=== PATIENT | female | born 1940 | race Caucasian/White ===

== ENCOUNTER 2017-07-30 18:24 | Emergency (ER) | payer MEDICARE, OTHER, SELFPAY ==
[2017-07-30] VITALS (17 sets, daily range): BP systolic 141–213; BP diastolic 74–106; PULSE 72–83; RESP 14–21; TEMP 36.6; O2SAT 92–100
--- NOTE | 2017-07-30 | DI.CT.S_ITS ---
PROCEDURE: CT HEAD/BRAIN WO CON INDICATIONS: CODE STROKE TECHNIQUE: Noncontrast 4.5 mm thick angled axial sections acquired from the foramen magnum to the vertex, with coronal and sagittal reformats. For radiation dose reduction, the following was used: automated exposure control, adjustment of mA and/or kV according to patient size. COMPARISON: None. FINDINGS: Image quality: Excellent. CSF spaces: Basal cisterns are patent. No extra-axial fluid collections. The ventricles are symmetric in size and shape. Brain: Intraparenchymal hemorrhage within the region of the right basal ganglia and right temporal lobe. This measures approximately 1.7 x 3.3 cm. No definite midline shift. There is cerebral volume loss for age, with resultant ventricular and sulcal prominence. There are periventricular and deep white matter chronic small vessel ischemic changes. There is intracranial internal carotid artery atherosclerosis. Skull and face: Calvarium and visualized facial bones appear intact, without suspicious lesions. Hyperostosis frontalis is present. Sinuses: Visualized sinuses and mastoids are clear. IMPRESSION: Right basal ganglia and temporal lobe acute intraparenchymal hemorrhage as detailed above. Critical nature of the findings are immediately and personally telephoned and discussed with Dr. De Oliveira in the emergency department at 1846 hours 07/30/17 Dictated by: Moshe Dixon M.D. on 07/30/2017 at 18:43 Approved by: Moshe Dixon M.D. on 07/30/2017 at 18:48
[2017-07-30 18:49] LABS: Hematocrit 45.9 % (36-46); Hemoglobin 15.8 g/dL (12.0-16.0); Mean Corpuscular HGB Conc 34.4 % (30-36); Mean Corpuscular Hemoglobin 31.8 PG (26-34); Mean Corpuscular Volume 92.6 fL (80-100); Platelet Count 354 X10^3/uL (150-400); Prothrombin Time 10.6 SECONDS (10.1-12.7); Red Blood Cell Count 4.96 X10^6/uL (4.0-5.2); White Blood Cell Count 7.8 X10^3/uL (4.5-11.0)
[2017-07-30 18:52] LABS: PTT Partial Thromboplastin Tim 33 SECONDS (26.4-36.2)
[2017-07-30 18:53] LABS: BUN Creatinine Ratio 22.9 (6-22); Blood Urea Nitrogen 16 mg/dL (7-17); Calcium 9.7 mg/dL (8.4-10.2); Carbon Dioxide 31 mmol/L (22-32); Chloride 102 mmol/L (98-107); Estimated Glomerular Filt Rate > 60.0 mL/min (>60); Ethanol (ETOH) < 10 mg/dL; Glucose 86 mg/dL (80-110); HEMOLYSIS 21 (0-50); Potassium 3.7 mmol/L (3.4-5.1); Sodium 141 mmol/L (137-145)
--- NOTE | 2017-07-30 19:00 | ED_ITS ---
HPI - Neuro Symptoms/Deficit General Chief Complaint: Neuro Symptoms/Deficit Stated Complaint: stroke Time Seen by Provider: 07/30/17 18:39 Source: patient, family and EMS Mode of arrival: EMS Limitations: other (Dementia) History of Present Illness HPI Narrative: 77-year-old female brought in by EMS after they were called by the patient's daughter for concerns of a possible stroke. The patient's daughter who arrived to the emergency department after the patient stated that approximately 6 o'clock this afternoon which was about 45 min prior to [place] when the daughter started noticing that the patient was leaning. The daughter states that she thought that the patient had problems ?hitting the buttons ?on the machines they were playing. Patient's daughter states that the patient has a history of migraines. She states that at some point prior to the incident where she was leaning the patient was describing a headache. The daughter states that she told her mother that if she was getting headache than the need to leave. Daughter reports that her mother then reported that her headache was improving but then the leaning started. Here in the emergency department patient stated that she did have a headache last evening. Uncertain whether this was her normal headaches or a different headache. Patient was confused on the date. She did know her location. Confused on the circumstances while she was here. Upon further discussion with the daughter it was revealed that the patient does have a history of ?dementia ? patient also has a history of high blood pressure and insulin-dependent diabetes. Daughter states that she does not think that her mother has been taking her medications. Was also revealed that the patient has a history of ? multiple strokes ? Related Data Allergies Allergy/AdvReac Type Severity Reaction Status Date / Time No Known Drug Allergies Allergy Verified 07/30/17 19:14 Review of Systems Review of Systems All systems reviewed & are unremarkable except as noted in HPI and below Constitutional Denies chills, Denies fatigue, Denies fever(s), Reports headache(s), Denies lethargy and Reports weakness Eyes Denies blurry vision ENT Ears, Nose, Mouth, and Throat: Denies dizziness, Reports headache(s) and Denies neck pain Cardiovascular Denies chest pain, Denies syncope, Denies palpitations and Denies dyspnea Respiratory Denies cough and Denies dyspnea Gastrointestinal Gastrointestinal: Denies nausea and Denies vomiting Musculoskeletal Reports abnormal gait (Per daughter), Denies deformity and Denies neck pain Comments: Patient reports no musculoskeletal complaints Integumentary/Breasts Denies pruritus, Denies erythema, Denies rash and Denies wounds Neurologic Reports abnormal speech (Speech slurring her words per daughter), Reports abnormal gait (Per daughter), Reports confusion, Denies dizziness, Denies syncope, Reports headache(s), Denies tremor(s) and Reports weakness Psychiatric Reports confusion Endocrine Denies fatigue and Denies palpitations Hematologic/Lymphatic Denies easy bleeding and Denies easy bruising Exam Initial Vital Signs Initial Vital Signs: Vital Signs Temperature 97.8 F 07/30/17 18:39 Pulse Rate 72 07/30/17 18:39 Respiratory Rate 15 07/30/17 18:39 Blood Pressure 213/96 H 07/30/17 18:39 Pulse Oximetry 97 07/30/17 18:39 Const General: cooperative, comfortable, well developed, No acute distress and No in distress Nutritional Appearance: well nourished Orientation: alert, awake, oriented to person, oriented to place, not oriented to time and not confused [facility] Head: normal to inspection, normocephalic and atraumatic Ears: hearing grossly normal bilaterally Nose: external nose normal Mouth: oral mucosae normal Eyes Pupils: PERRL Other: Eyes deviated to the right however can be overcome and look to the left Resp Effort & Inspection: normal respiratory effort, able to speak in complete sentences, no respiratory distress and no use of accessory muscles Auscultation: clear to auscultation bilaterally, no rales, no rhonchi and no wheezes Cardio Rate: regular rate Rhythm: regular rhythm Heart Sounds: no click, no gallops, no murmurs and no rubs Pulses: normal peripheral pulses GI Inspection: non-distended Palpation: soft, no hepatosplenomegaly, No guarding, No pulsatile mass and No tender Skin General: no rashes or lesions noted, No jaundice and No petechiae Neuro General: alert and awake Other: Sensation intact bilateral upper and lower extremities per patient Patient with 4/5 strength right upper extremity 2/5 strength left upper extremity 1/5 strength right lower extremity 0/5 strength left lower extremity Sensation intact to light touch face bilateral upper and lower extremities per patient Patient with left-sided facial droop. Right side appears unremarkable No slurred speech noted on my exam Extrem Other: No deformities See neuro section for strength Course Orders Ordered: ED Orders 07/30/17 18:30 Basic Metabolic Panel Stat Complete Blood Count MAN DIFF Stat Ethanol (ETOH) Stat Partial Thromboplastin Time Stat Prothrombin Time INR Stat 07/30/17 18:48 CT head/brain wo con Stat Sodium Chloride (Normal Saline 0.9%) 1,000 mls @ 150 mls/hr IV CONT REVA Nicardipine HCl 25 mg/ Sodium (Chloride) 250 mls @ 50 mls/hr IV TITRATE REVA; Protocol Last Admin: 07/30/17 19:02 Dose: 5 mg/hr, 50 mls/hr Vital Signs - 8 hr 07/30/17 18:39 07/30/17 19:02 07/30/17 19:06 Temperature 97.8 F Pulse Rate 72 72 74 Respiratory Rate 15 17 Blood Pressure 213/96 H Blood Pressure [Right Arm] 191/86 H 170/83 H Pulse Oximetry 97 95 07/30/17 19:10 07/30/17 19:24 Temperature Pulse Rate 75 75 Respiratory Rate 15 16 Blood Pressure Blood Pressure [Right Arm] 163/88 H 179/95 H Pulse Oximetry 95 95 MDM - Neuro Symptoms/Deficit Lab Data Attestation: I reviewed the patient's lab results. Result diagrams: 07/30/17 18:30 07/30/17 18:30 Lab Results 07/30/17 07/30/17 07/30/17 Range/Units 18:30 18:30 18:30 WBC 7.8 (4.5-11.0) X10^3/uL RBC 4.96 (4.0-5.2) X10^6/uL Hgb 15.8 (12.0-16.0) g/dL Hct 45.9 (36-46) % MCV 92.6 (80-100) fL MCH 31.8 (26-34) PG MCHC 34.4 (30-36) % RDW 14.0 (11.6-14.8) % Plt Count 354 (150-400) X10^3/uL Seg Neutrophils % 60.0 (38-70) % Lymphocytes % (Manual) 27.0 (25-45) % Monocytes % (Manual) 8.0 (2-11) % Eosinophils % (Manual) 5.0 H (2-4) % RBC Morphology Normal morphology PT 10.6 (10.1-12.7) SECONDS INR 1.0 (0.9-1.3) APTT 33 (26.4-36.2) SECONDS Sodium 141 (137-145) mmol/L Potassium 3.7 (3.4-5.1) mmol/L Chloride 102 (98-107) mmol/L Carbon Dioxide 31 (22-32) mmol/L BUN 16 (7-17) mg/dL Creatinine 0.70 (0.52-1.04) mg/dL Estimated GFR > 60.0 (>60) mL/min BUN/Creatinine Ratio 22.9 H (6-22) Glucose 86 (80-110) mg/dL Calcium 9.7 (8.4-10.2) mg/dL Ethyl Alcohol < 10 mg/dL Imaging Data CT scan - head: Radiologist's impression: Right basal ganglion temporal lobe acute intraparenchymal hemorrhage ECG Data Attestation: I personally reviewed and interpreted this ECG as follows: Prior ECG tracings: not available for review Interpretation: Sinus rhythm Ventricular rate is 69 Normal axis Normal intervals Normal QRS Nonspecific ST T wave changes MDM Narrative Medical decision making narrative: Patient arrived and went to the head CT prior to my evaluation. Right-sided bleed noted upon my wet read. Patient was hypertensive with systolic blood pressure in the 220s upon arrival. Patient was started on nicardipine which lowered her blood pressure to the 160s in 170 systolic. This was stopped. The goal is to maintain systolic blood pressure less than 180. Unsure as the exact time of onset of the symptoms. Patient did state that she had a headache last night. Patient's daughter states that the weakness started approximately 45 min prior to arrival at sometime around 1800 this evening. Patient is daughter states that she has had multiple strokes in the past. Also some discussion about the patient being insulin-dependent diabetic however blood sugar here in the emergency department was unremarkable. Daughter states she does not think that her mother is taking any of her medications. NIHSS of 15. With left-sided deficits both upper and lower extremity. Discussed case with Korina Epstein and Dr Wright who accepts. Will send by [facility]. pt is stable for transport. discussed with pt and daughter who expressed understanding and agreement with plan. Discharge Plan Departure Patient Disposition: [facility] Clinical Impression: Hemorrhagic stroke, Hypertension
[2017-07-30] MEDS: NICARDIPINE 25 MG in SODIUM CHLORIDE 0.9% 240 ML 50 ML IV (19:02)
--- NOTE | 2017-07-30 19:05 | PC.NURSE ---
See NIH score on Stroke paperwork.
--- NOTE | 2017-07-30 19:15 | PC.NURSE ---
Pt responding to Nicardipine infusion well. Rate decreased from 50ml/hr to 30 ml/hr per protocol. Goal less than 180 systolic per [facility]. Current BP 163/88.
[2017-07-30 19:18] LABS: RBC Morphology Normal Morphology
[2017-07-30] MEDS: MORPHINE 4 MG/ML INJ 2 MG IV (21:06)
--- NOTE | 2017-07-30 21:29 | PC.NURSE ---
[employer] ETA 2135. [facility] transport was delayed due to weather conditions and dispatch approval. Blood pressure is down to 141/78 at 2130. Adjusted nicardipine drip per protocol. Given morphine 2mg for headache IV. Per patient, no change in pain. Pt is drowsy. Resting on stretcher. Family at bedside. Aware of plan of care.
--- NOTE | 2017-07-30 21:37 | PC.NURSE ---
2003 Spoke with Nicolás. Updated him on pt, with pt's permission.
== END 2017-07-30 22:00 | disposition short-term general hospital (02) ==
PROVIDERS: Emergency Provider Emergency Medicine
DX: I61.9 Nontraumatic intracerebral hemorrhage, unspecified (principal); I10 Essential (primary) hypertension
CPT/HCPCS: 70450; 80048; 80320; 82962; 85025; 85610; 85730; 93005; 93041; 96365; 96366; 96375; 99285; 99291; 99292; J2270

== ENCOUNTER 2019-10-16 12:51 | Inpatient (IN) | payer MEDICARE, OTHER, SELFPAY ==
[2019-10-16] VITALS (16 sets, daily range): BP systolic 150–164; BP diastolic 66–95; PULSE 57–95; RESP 16–19; TEMP 36.7–37.7; O2SAT 93–99; BMI 20.2
--- NOTE | 2019-10-16 13:18 | DI.RAD.S_ITS ---
PROCEDURE: XR HIP W PEL IF DONE LT 2V INDICATIONS: L hip/groin pain, s/p fall TECHNIQUE: AP pelvis with lateral view(s) of the left hip(s). COMPARISON: None. FINDINGS: Bones: No definite fractures or dislocations but there is a lucency superimposed on the femoral neck on the left, which may simply represent gas within a skin fold but its position also could indicate presence of a femoral neck fracture which is not well visualized on the lateral view due to patient body habitus. Pelvic ring appears intact. No suspicious bony lesions. Soft tissues: The visualized bowel gas pattern is normal. No suspicious soft tissue calcifications. IMPRESSION: A low threshold is recommended for proceeding to either CT or MR scanning for femoral neck fracture on the left. Quality of visualization by plain film is relatively limited in this patient. Dictated by: Brandon Livingston M.D. on 10/16/2019 at 14:09 Approved by: Brandon Livingston M.D. on 10/16/2019 at 14:11
[2019-10-16 13:42] LABS: Add Manual Diff / Slide Review NO; Basophils Absolute Auto 100 /uL (0-100); Basophils Percent Auto 0.9 % (0-2); Eosinophils Absolute Auto 400 /uL (0-450); Eosinophils Percent Auto 3.7 % (2-4); Hematocrit 39.7 % (36-46); Hemoglobin 13.3 g/dL (12.0-16.0); Lymphocytes Absolute Auto 900 /uL (1100-4500); Lymphocytes Percent Auto 8.4 % (25-40); Mean Corpuscular HGB Conc 33.5 % (30-36); Mean Corpuscular Volume 92.3 fL (80-100); Monocytes Absolute Auto 900 /uL (0-900); Monocytes Percent Auto 8.6 % (3-14); Neutrophils Absolute Auto 8400 /uL (1500-7000); Neutrophils Percent Auto 78.4 % (50-75); Platelet Count 296 X10^3/uL (150-400); Red Cell Distribution Width 13.8 % (11.6-14.8); White Blood Cell Count 10.7 X10^3/uL (4.5-11.0)
[2019-10-16 13:51] LABS: PTT Partial Thromboplastin Tim 34 SECONDS (26.4-36.2)
[2019-10-16 13:52] LABS: Alanine Aminotransferase 16 IU/L (<35); Albumin 4.1 g/dL (3.5-5.0); Albumin Globulin Ratio 1.5 (1.0-2.8); Alkaline Phosphatase 89 U/L (38-126); Aspartate Aminotransferase 22 IU/L (14-36); Bilirubin Total 0.8 mg/dL (0.2-1.3); Blood Urea Nitrogen 19 mg/dL (7-17); Calcium 9.4 mg/dL (8.4-10.2); Carbon Dioxide 30 mmol/L (22-32); Chloride 106 mmol/L (98-107); Estimated Glomerular Filt Rate > 60.0 mL/min (>60); Globulin 2.8 g/dL (1.7-4.1); Glucose 77 mg/dL (80-110); HEMOLYSIS < 15 (0-50); Lactate (Lactic Acid) 0.8 mmol/L (0.7-2.1); Potassium 4.5 mmol/L (3.4-5.1); Sodium 140 mmol/L (137-145); Total Protein 6.9 g/dL (6.3-8.2)
[2019-10-16 13:56] LABS: Prothrombin Time 11.6 SECONDS (10.1-12.7)
[2019-10-16 14:23] LABS: Creatine Kinase 119 U/L (30-135)
[2019-10-16 14:36] LABS: Troponin I < 0.012 ng/mL (0.01-0.034)
[2019-10-16 14:39] LABS: CKMB % Relative Index 1.6 % (1.5-5.0); Creatine Kinase MB 1.94 ng/mL (<2.37)
--- NOTE | 2019-10-16 14:49 | DI.CT.S_ITS ---
PROCEDURE: CT PEL WO CON INDICATIONS: left hip pain, fall TECHNIQUE: Noncontrast 3 mm axial sections acquired through the bony pelvis, with coronal and sagittal reformatting. COMPARISON: [facility], CR, XR HIP W PEL IF DONE LT 2V, 10/16/2019, 13:25. FINDINGS: Image quality: Excellent. Bones: There is an inter trochanteric fracture plane, slightly angulated, accounting for the radiolucency at the junction of the femoral neck and the inter trochanteric area on the plain film imaging earlier today. Soft tissues: No hematoma found. IMPRESSION: Definite intratrochanteric fracture at the junction of the low femoral neck and the intratrochanteric line, producing the area of lucency identified by plain film superimposed on that area earlier today. Orthopedic surgical consultation is anticipated. Note is again made of prior cannulated pin fixation of a previous femoral neck fracture on the right. Dictated by: Brandon Livingston M.D. on 10/16/2019 at 16:22 Approved by: Brandon Livingston M.D. on 10/16/2019 at 16:25
[2019-10-16] MEDS: MORPHINE 2 MG/ML INJ IV ×3 (15:28→23:24)
--- NOTE | 2019-10-16 16:19 | ED_ITS ---
HPI - Fall <TY Worley - Last Filed: 10/16/19 18:48> General Chief Complaint: Fall Stated Complaint: Fall L Hip Pain Time Seen by Provider: 10/16/19 12:59 Source: patient and EMS Mode of arrival: EMS Limitations: altered mental status History of Present Illness HPI Narrative: This is a 79-year-old female, former smoker, who has history of dementia, Parkinson's disease, osteoporosis, COPD, hypertension, pressure ulcer, TIA, anxiety presents to ED with [place] from [facility] with left groin/hip pain after a ground level fall. Patient reports she walks at least 3 times a day with assistance and a walker. Patient denies chest pain, breathing difficulty, dizziness. Patient is able to move her toes with intact sensation. It is unclear if this was witnessed or unwitnessed fall. Appears to be she is not on blood thinner on record that she came with. The patient prefers support under the left leg for comfort and refused to elevate or flex her leg due to left groin pain. POLST form indicates DNR and comfort measure. Related Data Home Medications Medication Instructions Recorded Confirmed albuterol sulfate 2.5 mg INHALATION Q4-6H PRN 10/16/19 10/16/19 dimethicone [Cavilon Durable See Rx Instructions .ROUTE 10/16/19 10/17/19 Barrier] .COMPLEX PRN donepezil 10 mg PO DAILY 10/16/19 10/16/19 ipratropium bromide 1 puff INHALATION QID 10/16/19 10/16/19 lisinopril 20 mg PO DAILY 10/16/19 10/16/19 melatonin 3 mg PO BEDTIME PRN 10/16/19 10/16/19 polyethylene glycol 3350 8.5 g PO DAILY 10/16/19 10/16/19 sennosides [senna] 8.6 mg PO BID 10/16/19 10/16/19 Allergies Allergy/AdvReac Type Severity Reaction Status Date / Time No Known Drug Allergies Allergy Verified 07/30/17 19:14 Review of Systems <TY Worley - Last Filed: 10/16/19 18:48> Review of Systems Narrative: General: Denies fever, chills, fatigue, malaise, sweats. HEENT: Denies sinus pain, ear pain, sore throat, difficulty swallowing, dizziness. Respiratory: Denies dyspnea, cough, wheezing, hemoptysis, sputum. Cardiovascular: Denies chest pain, palpitations, orthopnea, edema. Gastrointestinal: Denies nausea, vomiting, abdominal pain, diarrhea, constipation, melena. : Denies dysuria, frequency, incontinence, hematuria, urinary retention. Musculoskeletal: See HPI Skin: Denies rash, skin lesions, or other. Neurologic: Denies weakness, headache, numbness, change in speech, confusion, seizures, incoordination. Psychiatric: No concerning psychosocial issues. 12-point review of systems is negative except for those stated above. Patient History <Felix Barba [facility] - Last Filed: 10/16/19 18:48> Medical History Anxiety (Acute) COPD (chronic obstructive pulmonary disease) (Acute) Dementia (Acute) Headache (Acute) HTN (hypertension) (Acute) Hyperlipidemia (Acute) Osteoporosis (Acute) Parkinsons disease (Acute) Peripheral neuropathy (Acute) Pressure ulcer (Acute) TIA (transient ischemic attack) (Acute) Tremor (Acute) UTI (urinary tract infection) (Acute) Social History household members: caregiver Smoking Status: Former smoker alcohol intake: former Smoking Status: Former smoker Exam <Felix Barba [facility] - Last Filed: 10/16/19 18:48> Narrative Exam Narrative: GEN: Alert, oriented x1, thin appearing and moderate distress when left leg moved from pain. Head: Normal cephalic, atraumatic. No scalp or temporal tenderness, palpable mass or rash. EYES: Pupils are equal, round, and reactive to light and accommodation. Extraocular muscles are intact bilaterally. There is no subconjunctival hemorrhage, exudate and sclera non-icteric. ENT: Hearing grossly intact. Nose without bleeding, purulent discharge or deviation. Facial sinuses nontender to palpate. Mucous membrane moist, no mucosal lesion. Throat without erythema, tonsillar hypertrophy or exudate. Uvula in midline, airway patent. Neck: Trachea in midline. No JVD, non-tender without lymphadenopathy. No masses or thyroid megaly. Supple, non-tender and no meningeal signs. CARDIAC: Normal regular rate and rhythm without murmurs, gallops, or rubs. No chest wall tenderness. No peripheral edema, cyanosis or pallor. Capillary refill is less than 2 seconds. RESPIRATORY: Lungs are clear to auscultate bilaterally. No cough, wheezes, rales, or rhonchi. No stridor, respiratory distress, increase work of breathing, or accessary muscle used. ABD: Abdomen soft, nontender and non-distended. No guarding or rebound tenderness to palpate. Bowel sounds are normal in all 4 quadrants. There is no palpable masses or organomegaly. EXT: Painful passive range of motion in left leg. Intact pedal pulse with sensation in left leg. Appears to be left leg turned inward and shortened. SKIN: Warm, dry, pale. Has dressing on right heel from [facility]. BACK: Nontender without deformity or crepitance. No flank tenderness. NEUROLOGICAL: Alert and but not oriented to place or time. No facial droops, dysphasia. Initial Vital Signs Initial Vital Signs: Vital Signs Temperature 98.1 F 10/16/19 13:02 Pulse Rate 58 L 10/16/19 13:02 Respiratory Rate 18 10/16/19 13:02 Blood Pressure 161/66 H 10/16/19 13:02 Pulse Oximetry 97 10/16/19 13:02 Psych Mood: anxious mood <Deedee Orlando MD - Last Filed: 10/17/19 18:55> Initial Vital Signs Initial Vital Signs: Vital Signs Temperature 98.1 F 10/16/19 13:02 Pulse Rate 58 L 10/16/19 13:02 Respiratory Rate 18 10/16/19 13:02 Blood Pressure 161/66 H 10/16/19 13:02 Pulse Oximetry 97 10/16/19 13:02 Scores <[facility] - Last Filed: 10/16/19 18:48> GCS Daniel coma scale eye opening: Spontaneous Chamberlain coma scale verbal response: Confused Daniel coma scale motor response: Obey commands Daniel coma scale total score: 14 Nexus Score for C-Spine Focal Neurologic deficit present: No Midline spinal tenderness present: No Altered level of conciousness present: No (base line) Intoxication present: No Distracting Injury Present: Yes Nexus Criteria for C-spine: 1 Course <[facility] - Last Filed: 10/16/19 18:48> Orders Ordered: Acetaminophen (Tylenol) 650 mg PO TID [facility] Hydrocodone Bitart/Acetaminophen ([place] 5/325) 1 tab PO Q4HR PRN PRN Reason: Pain, Moderate (4-6) Albuterol (Ventolin) 2.5 mg INH Q4H PRN PRN Reason: Dyspnea Docusate Sodium (Colace) 100 mg PO BID [facility] Cefazolin Sodium/Dextrose (Ancef) 2 gm in 100 mls @ 200 mls/hr IV Q8H [facility] Stop: 10/18/19 07:29 Ipratropium Treece (Atrovent Hfa) 1 puff INH QID [facility] Nf - Dimethicone Cream (Cavilon Durable Barrier) 1 Unit 1 unit TOP BID PRN PRN Reason: Wound barrier Ondansetron HCl (Zofran) 4 mg IV Q4HR PRN PRN Reason: Nausea And Vomiting Ondansetron HCl (Zofran Odt) 4 mg PO Q4HR PRN PRN Reason: Nausea Polyethylene Glycol (Miralax) 17 gm PO DAILY PRN PRN Reason: Constipation Discontinued Medications Acetaminophen (Tylenol) 650 mg PO Q6HR PRN PRN Reason: Fever/Mild Pain (1-3) Bupivacaine HCl/Epinephrine Bitart (Sensorcaine 0.5% W/ Epi (Pf)) 30 ml INJ NOW ONE Stop: 10/17/19 15:40 Last Admin: 10/17/19 15:39 Dose: 30 ml Documented by: CORRINA Docusate Sodium (Colace) 100 mg PO BID [facility] Last Admin: 10/17/19 07:23 Dose: Not Given Documented by: Admin: 10/16/19 21:03 Dose: 100 mg Documented by: DINH Donepezil HCl (Aricept) 10 mg PO DAILY [facility] Last Admin: 10/17/19 08:45 Dose: Not Given Documented by: HARESH Fentanyl (Sublimaze) 25 mcg IV Q5MIN PRN PRN Reason: Pain, Severe (7-10) Fentanyl (Sublimaze) 0 mcg IV Q5M PRN PRN Reason: Pain, Moderate (4-6) Lactated Ringer's (Lactated Ringers) 1,000 mls @ 75 mls/hr IV CONT [facility] Last Admin: 10/17/19 13:24 Dose: 75 mls/hr Documented by: Infusion: 10/17/19 13:24 Dose: 75 mls/hr Documented by: Admin: 10/17/19 10:14 Dose: 75 mls/hr Documented by: Infusion: 10/17/19 10:14 Dose: 75 mls/hr Documented by: Admin: 10/16/19 22:36 Dose: 75 mls/hr Documented by: DINH Cefazolin Sodium/Dextrose (Ancef) 1 gm in 50 mls @ 200 mls/hr IV NOW ONE Stop: 10/17/19 15:23 Last Infusion: 10/17/19 14:55 Dose: 0 mls/hr Documented by: Admin: 10/17/19 14:52 Dose: 200 mls/hr Documented by: OMAR Lisinopril (Zestril) 20 mg PO DAILY [facility] Melatonin (Melatonin) 3 mg PO BEDTIME PRN PRN Reason: Insomnia Last Admin: 10/16/19 21:03 Dose: 3 mg Documented by: DINH Morphine Sulfate (Morphine) 2 mg IV Q2HR PRN PRN Reason: Pain, Moderate (4-6) Last Admin: 10/16/19 17:35 Dose: 2 mg Documented by: Admin: 10/16/19 15:28 Dose: 2 mg Documented by: CHERELLE Morphine Sulfate (Morphine) 2 mg IV Q4HR PRN PRN Reason: Pain, Moderate (4-6) Last Admin: 10/17/19 10:13 Dose: 2 mg Documented by: Admin: 10/17/19 05:18 Dose: 2 mg Documented by: Admin: 10/16/19 23:24 Dose: 2 mg Documented by: HARPER Naloxone HCl (Narcan) 0.2 mg IV Q2MIN PRN PRN Reason: Opiate Reversal Ondansetron HCl (Zofran) 4 mg IV Q6HR PRN PRN Reason: Nausea And Vomiting Ondansetron HCl (Zofran) 4 mg IV NOW PRN PRN Reason: Nausea And Vomiting Polyethylene Glycol (Miralax) 17 gm PO DAILY [facility] Last Admin: 10/17/19 07:24 Dose: Not Given Documented by: SPABONA Sennosides (Senna) 8.6 mg PO BID [facility] Last Admin: 10/17/19 07:24 Dose: Not Given Documented by: Admin: 10/16/19 21:03 Dose: 8.6 mg Documented by: DINH Sodium Chloride (Normal Saline 0.9% Flush) 10 ml IV PRN PRN PRN Reason: Flush Sodium Chloride (Normal Saline 0.9% Flush) 10 ml IV BID [facility] Last Admin: 10/17/19 08:45 Dose: Not Given Documented by: HARESH Vital Signs Vital signs: Vital Signs - 8 hr 10/16/19 13:02 10/16/19 13:22 10/16/19 13:30 Temperature 98.1 F Pulse Rate 58 L 59 L 57 L Respiratory Rate 18 Blood Pressure 161/66 H 150/72 H Pulse Oximetry 97 99 98 10/16/19 14:00 10/16/19 14:30 10/16/19 15:02 Temperature Pulse Rate 65 64 68 Respiratory Rate Blood Pressure Pulse Oximetry 96 93 98 10/16/19 15:30 10/16/19 16:00 10/16/19 16:30 Temperature Pulse Rate 72 75 79 Respiratory Rate Blood Pressure Pulse Oximetry 97 98 95 10/16/19 17:00 10/16/19 17:30 Temperature Pulse Rate 76 68 Respiratory Rate Blood Pressure Pulse Oximetry 96 96 <Deedee Orlando MD - Last Filed: 10/17/19 18:55> Orders Ordered: Acetaminophen (Tylenol) 650 mg PO TID [facility] Hydrocodone Bitart/Acetaminophen ([place] 5/325) 1 tab PO Q4HR PRN PRN Reason: Pain, Moderate (4-6) Albuterol (Ventolin) 2.5 mg INH Q4H PRN PRN Reason: Dyspnea Docusate Sodium (Colace) 100 mg PO BID [facility] Cefazolin Sodium/Dextrose (Ancef) 2 gm in 100 mls @ 200 mls/hr IV Q8H [facility] Stop: 10/18/19 07:29 Ipratropium Treece (Atrovent Hfa) 1 puff INH QID [facility] Nf - Dimethicone Cream (Cavilon Durable Barrier) 1 Unit 1 unit TOP BID PRN PRN Reason: Wound barrier Ondansetron HCl (Zofran) 4 mg IV Q4HR PRN PRN Reason: Nausea And Vomiting Ondansetron HCl (Zofran Odt) 4 mg PO Q4HR PRN PRN Reason: Nausea Polyethylene Glycol (Miralax) 17 gm PO DAILY PRN PRN Reason: Constipation Discontinued Medications Acetaminophen (Tylenol) 650 mg PO Q6HR PRN PRN Reason: Fever/Mild Pain (1-3) Bupivacaine HCl/Epinephrine Bitart (Sensorcaine 0.5% W/ Epi (Pf)) 30 ml INJ NOW ONE Stop: 10/17/19 15:40 Last Admin: 10/17/19 15:39 Dose: 30 ml Documented by: CORRINA Docusate Sodium (Colace) 100 mg PO BID [facility] Last Admin: 10/17/19 07:23 Dose: Not Given Documented by: Admin: 10/16/19 21:03 Dose: 100 mg Documented by: DINH Donepezil HCl (Aricept) 10 mg PO DAILY [facility] Last Admin: 10/17/19 08:45 Dose: Not Given Documented by: HAERSH Fentanyl (Sublimaze) 25 mcg IV Q5MIN PRN PRN Reason: Pain, Severe (7-10) Fentanyl (Sublimaze) 0 mcg IV Q5M PRN PRN Reason: Pain, Moderate (4-6) Lactated Ringer's (Lactated Ringers) 1,000 mls @ 75 mls/hr IV CONT [facility] Last Admin: 10/17/19 13:24 Dose: 75 mls/hr Documented by: Infusion: 10/17/19 13:24 Dose: 75 mls/hr Documented by: Admin: 10/17/19 10:14 Dose: 75 mls/hr Documented by: Infusion: 10/17/19 10:14 Dose: 75 mls/hr Documented by: Admin: 10/16/19 22:36 Dose: 75 mls/hr Documented by: DINH Cefazolin Sodium/Dextrose (Ancef) 1 gm in 50 mls @ 200 mls/hr IV NOW ONE Stop: 10/17/19 15:23 Last Infusion: 10/17/19 14:55 Dose: 0 mls/hr Documented by: Admin: 10/17/19 14:52 Dose: 200 mls/hr Documented by: KOTJ Lisinopril (Zestril) 20 mg PO DAILY [facility] Melatonin (Melatonin) 3 mg PO BEDTIME PRN PRN Reason: Insomnia Last Admin: 10/16/19 21:03 Dose: 3 mg Documented by: DINH Morphine Sulfate (Morphine) 2 mg IV Q2HR PRN PRN Reason: Pain, Moderate (4-6) Last Admin: 10/16/19 17:35 Dose: 2 mg Documented by: Admin: 10/16/19 15:28 Dose: 2 mg Documented by: CHERELLE Morphine Sulfate (Morphine) 2 mg IV Q4HR PRN PRN Reason: Pain, Moderate (4-6) Last Admin: 10/17/19 10:13 Dose: 2 mg Documented by: Admin: 10/17/19 05:18 Dose: 2 mg Documented by: Admin: 10/16/19 23:24 Dose: 2 mg Documented by: HARPER Naloxone HCl (Narcan) 0.2 mg IV Q2MIN PRN PRN Reason: Opiate Reversal Ondansetron HCl (Zofran) 4 mg IV Q6HR PRN PRN Reason: Nausea And Vomiting Ondansetron HCl (Zofran) 4 mg IV NOW PRN PRN Reason: Nausea And Vomiting Polyethylene Glycol (Miralax) 17 gm PO DAILY [facility] Last Admin: 10/17/19 07:24 Dose: Not Given Documented by: HARESH Sennosides (Senna) 8.6 mg PO BID [facility] Last Admin: 10/17/19 07:24 Dose: Not Given Documented by: Admin: 10/16/19 21:03 Dose: 8.6 mg Documented by: DINH Sodium Chloride (Normal Saline 0.9% Flush) 10 ml IV PRN PRN PRN Reason: Flush Sodium Chloride (Normal Saline 0.9% Flush) 10 ml IV BID [facility] Last Admin: 10/17/19 08:45 Dose: Not Given Documented by: HARESH Vital Signs Vital signs: Vital Signs - 8 hr 10/16/19 13:02 10/16/19 13:22 10/16/19 13:30 Temperature 98.1 F Pulse Rate 58 L 59 L 57 L Respiratory Rate 18 Blood Pressure 161/66 H 150/72 H Pulse Oximetry 97 99 98 10/16/19 14:00 10/16/19 14:30 10/16/19 15:02 Temperature Pulse Rate 65 64 68 Respiratory Rate Blood Pressure Pulse Oximetry 96 93 98 10/16/19 15:30 10/16/19 16:00 10/16/19 16:30 Temperature Pulse Rate 72 75 79 Respiratory Rate Blood Pressure Pulse Oximetry 97 98 95 10/16/19 17:00 10/16/19 17:30 Temperature Pulse Rate 76 68 Respiratory Rate Blood Pressure Pulse Oximetry 96 96 MDM - Fall <Felix ASHLEIGH BarbaP - Last Filed: 10/16/19 18:48> Differential Diagnosis Differential diagnosis: Likely other (Hip contusion, hip/femur/pelvis fracture, electrolyte imbalance, UTI, arrhythmia) Medical Records Attestation: I reviewed the patient's medical records. Lab Data Attestation: I reviewed the patient's lab results. Result diagrams: 10/17/19 04:48 10/17/19 04:48 Labs: Lab Results 10/16/19 10/16/19 10/16/19 Range/Units 13:28 13:28 13:28 WBC 10.7 (4.5-11.0) X10^3/uL RBC 4.30 (4.0-5.2) X10^6/uL Hgb 13.3 (12.0-16.0) g/dL Hct 39.7 (36-46) % MCV 92.3 (80-100) fL MCH 31.0 (26-34) PG MCHC 33.5 (30-36) % RDW 13.8 (11.6-14.8) % Plt Count 296 (150-400) X10^3/uL Neut % (Auto) 78.4 H (50-75) % Lymph % (Auto) 8.4 L (25-40) % [place] % (Auto) 8.6 (3-14) % Eos % (Auto) 3.7 (2-4) % Baso % (Auto) 0.9 (0-2) % Neut # (Auto) 8400 H (4878-6372) /uL Lymph # (Auto) 900 L (6116-3965) /uL [place] # (Auto) 900 (0-900) /uL Eos # (Auto) 400 (0-450) /uL Baso # (Auto) 100 (0-100) /uL PT (10.1-12.7) SECONDS INR (0.9-1.3) APTT 34 (26.4-36.2) SECONDS Sodium 140 (137-145) mmol/L Potassium 4.5 (3.4-5.1) mmol/L Chloride 106 (98-107) mmol/L Carbon Dioxide 30 (22-32) mmol/L BUN 19 H (7-17) mg/dL Creatinine 0.73 (0.52-1.04) mg/dL Estimated GFR > 60.0 (>60) mL/min BUN/Creatinine Ratio 26.0 H (6-22) Glucose 77 L (80-110) mg/dL Lactate (0.7-2.1) mmol/L Calcium 9.4 (8.4-10.2) mg/dL Total Bilirubin 0.8 (0.2-1.3) mg/dL AST 22 (14-36) IU/L ALT 16 (<35) IU/L Alkaline Phosphatase 89 (38-126) U/L Total Creatine Kinase (30-135) U/L CK-MB (CK-2) (<2.37) ng/mL CK-MB (CK-2) Rel Index (1.5-5.0) % Troponin I (0.01-0.034) ng/mL Total Protein 6.9 (6.3-8.2) g/dL Albumin 4.1 (3.5-5.0) g/dL Globulin 2.8 (1.7-4.1) g/dL Albumin/Globulin Ratio 1.5 (1.0-2.8) Blood Type Antibody Screen 10/16/19 10/16/19 10/16/19 Range/Units 13:28 13:28 13:28 WBC (4.5-11.0) X10^3/uL RBC (4.0-5.2) X10^6/uL Hgb (12.0-16.0) g/dL Hct (36-46) % MCV (80-100) fL MCH (26-34) PG MCHC (30-36) % RDW (11.6-14.8) % Plt Count (150-400) X10^3/uL Neut % (Auto) (50-75) % Lymph % (Auto) (25-40) % [place] % (Auto) (3-14) % Eos % (Auto) (2-4) % Baso % (Auto) (0-2) % Neut # (Auto) (4296-0811) /uL Lymph # (Auto) (2386-3802) /uL [place] # (Auto) (0-900) /uL Eos # (Auto) (0-450) /uL Baso # (Auto) (0-100) /uL PT 11.6 (10.1-12.7) SECONDS INR 1.0 (0.9-1.3) APTT (26.4-36.2) SECONDS Sodium (137-145) mmol/L Potassium (3.4-5.1) mmol/L Chloride (98-107) mmol/L Carbon Dioxide (22-32) mmol/L BUN (7-17) mg/dL Creatinine (0.52-1.04) mg/dL Estimated GFR (>60) mL/min BUN/Creatinine Ratio (6-22) Glucose (80-110) mg/dL Lactate 0.8 (0.7-2.1) mmol/L Calcium (8.4-10.2) mg/dL Total Bilirubin (0.2-1.3) mg/dL AST (14-36) IU/L ALT (<35) IU/L Alkaline Phosphatase (38-126) U/L Total Creatine Kinase (30-135) U/L CK-MB (CK-2) (<2.37) ng/mL CK-MB (CK-2) Rel Index (1.5-5.0) % Troponin I (0.01-0.034) ng/mL Total Protein (6.3-8.2) g/dL Albumin (3.5-5.0) g/dL Globulin (1.7-4.1) g/dL Albumin/Globulin Ratio (1.0-2.8) Blood Type O Positive Antibody Screen Negative 10/16/19 Range/Units 13:28 WBC (4.5-11.0) X10^3/uL RBC (4.0-5.2) X10^6/uL Hgb (12.0-16.0) g/dL Hct (36-46) % MCV (80-100) fL MCH (26-34) PG MCHC (30-36) % RDW (11.6-14.8) % Plt Count (150-400) X10^3/uL Neut % (Auto) (50-75) % Lymph % (Auto) (25-40) % [place] % (Auto) (3-14) % Eos % (Auto) (2-4) % Baso % (Auto) (0-2) % Neut # (Auto) (1249-1938) /uL Lymph # (Auto) (4368-3638) /uL [place] # (Auto) (0-900) /uL Eos # (Auto) (0-450) /uL Baso # (Auto) (0-100) /uL PT (10.1-12.7) SECONDS INR (0.9-1.3) APTT (26.4-36.2) SECONDS Sodium (137-145) mmol/L Potassium (3.4-5.1) mmol/L Chloride (98-107) mmol/L Carbon Dioxide (22-32) mmol/L BUN (7-17) mg/dL Creatinine (0.52-1.04) mg/dL Estimated GFR (>60) mL/min BUN/Creatinine Ratio (6-22) Glucose (80-110) mg/dL Lactate (0.7-2.1) mmol/L Calcium (8.4-10.2) mg/dL Total Bilirubin (0.2-1.3) mg/dL AST (14-36) IU/L ALT (<35) IU/L Alkaline Phosphatase (38-126) U/L Total Creatine Kinase 119 (30-135) U/L CK-MB (CK-2) 1.94 (<2.37) ng/mL CK-MB (CK-2) Rel Index 1.6 (1.5-5.0) % Troponin I < 0.012 (0.01-0.034) ng/mL Total Protein (6.3-8.2) g/dL Albumin (3.5-5.0) g/dL Globulin (1.7-4.1) g/dL Albumin/Globulin Ratio (1.0-2.8) Blood Type Antibody Screen Urine Dip Bedside Urine Glucose Negative Bedside Urine Bilirubin - Negative Bedside Urine Ketone - Negative Urine Specific [place] 1.025 Bedside Urine Occult Blood - Negative Bedside Urine pH 6.0 Bedside Urine Protein - Negative Bedside Urine Urobilinogen - Negative Bedside Urine Nitrite - Negative Bedside Urine Leukocytes - Negative Esterase Imaging Data XR-Hip: Radiologist's Impression: [address] [address] XRay Report Signed Patient: Missy Mcmahon LMR#: [id number] : 8Acct:[id number] Age/Sex: 79 / FDate of Service: 10/16/19 Loc: ED Accession Number: [id number] Procedure: XR hip w pel if done LT 2V Ordering Provider: Felix Barba [facility] PROCEDURE: XR HIP W PEL IF DONE LT 2V INDICATIONS: L hip/groin pain, s/p fall TECHNIQUE: AP pelvis with lateral view(s) of the left hip(s). COMPARISON: None. FINDINGS: Bones: No definite fractures or dislocations but there is a lucency superimposed on the femoral neck on the left, which may simply represent gas within a skin fold but its position also could indicate presence of a femoral neck fracture which is not well visualized on the lateral view due to patient body habitus. Pelvic ring appears intact. No suspicious bony lesions. Soft tissues: The visualized bowel gas pattern is normal. No suspicious soft tissue calcifications. IMPRESSION: A low threshold is recommended for proceeding to either CT or MR scanning for femoral neck fracture on the left. Quality of visualization by plain film is relatively limited in this patient. Dictated by: Brandon Livingston M.D. on 10/16/2019 at 14:09 Approved by: Brandon Livingston M.D. on 10/16/2019 at 14:11 CT-Pelvis: Radiologist's Impression: [address] [address] [address] Scan Report Signed Patient: Missy Mcmahon LMR#: [id number] : 8Acct:[id number] Age/Sex: 79 / FDate of Service: 10/16/19 Loc: ED Accession Number: [id number] Procedure: CT pelvis wo con Ordering Provider: Felix Barba [facility] PROCEDURE: CT PEL WO CON INDICATIONS: left hip pain, fall TECHNIQUE: Noncontrast 3 mm axial sections acquired through the bony pelvis, with coronal and sagittal reformatting. COMPARISON: [facility], CR, XR HIP W PEL IF DONE LT 2V, 10/16/2019, 13:25. FINDINGS: Image quality: Excellent. Bones: There is an inter trochanteric fracture plane, slightly angulated, accounting for the radiolucency at the junction of the femoral neck and the inter trochanteric area on the plain film imaging earlier today. Soft tissues: No hematoma found. IMPRESSION: Definite intratrochanteric fracture at the junction of the low femoral neck and the intratrochanteric line, producing the area of lucency identified by plain film superimposed on that area earlier today. Orthopedic surgical consultation is anticipated. Note is again made of prior cannulated pin fixation of a previous femoral neck fracture on the right. Dictated by: Brandon Livingston M.D. on 10/16/2019 at 16:22 Approved by: Brandon Livingston M.D. on 10/16/2019 at 16:25 ECG Data Attestation: I personally reviewed and interpreted this ECG as follows: Prior ECG tracings: available for review Interpretation: Sinus rhythm rate at 63. Normal [place]. QRS duration 70, QT/QTc 458/[address] changes. No significant changes from previous EKG. MDM Narrative Medical decision making narrative: This is a 79-year-old female who presents to ED with [facility] from [facility] after she had ground level fall with left groin pain with slightly shortened and turned inward left leg. Patient in discomfort with slight passive range of motion of left leg. Intact distal pulses and sensations. Patient is able to move her toes. EKG shows sinus rhythm with artifacts rate at 63. Normal Troponin. Normal leukocytosis with stable H&H of 13.3/39.7. Normal coag test. Slightly elevated BUN and BUN/creatinine ratio. Glucose 77 and patient was offered p.o. snacks and juice. Urine test is negative for nitrite or leukoesterase indicating infection. Xray test and CT test on hip/pelvis obtained and indicates intratrochanteric fracture at the junction of low femoral neck and intratrochanteric line. Appreciated prior cannulated pin fixation of femoral neck on the right side. POLST form-DNR and comfort measure. POA Chicho Vicente and Missy Burton and contact information is [phone] () and [phone] (cell). Attempted to contact POA over the phone but no answer and left a message to return call. [id number]-Consulted Dr. Castano with imaging tests and findings. He recommended the patient admitted under medical service and consult Orthopedic for possible surgical procedure. He was provided with POA information. [id number]-DR. Jurado kindly accepted patient's care for admission under medical service. <Deedee Orlando MD - Last Filed: 10/17/19 18:55> Lab Data Labs: Lab Results 10/16/19 10/16/19 10/16/19 Range/Units 13:28 13:28 13:28 WBC 10.7 (4.5-11.0) X10^3/uL RBC 4.30 (4.0-5.2) X10^6/uL Hgb 13.3 (12.0-16.0) g/dL Hct 39.7 (36-46) % MCV 92.3 (80-100) fL MCH 31.0 (26-34) PG MCHC 33.5 (30-36) % RDW 13.8 (11.6-14.8) % Plt Count 296 (150-400) X10^3/uL Neut % (Auto) 78.4 H (50-75) % Lymph % (Auto) 8.4 L (25-40) % [place] % (Auto) 8.6 (3-14) % Eos % (Auto) 3.7 (2-4) % Baso % (Auto) 0.9 (0-2) % Neut # (Auto) 8400 H (4546-3250) /uL Lymph # (Auto) 900 L (8048-6510) /uL [place] # (Auto) 900 (0-900) /uL Eos # (Auto) 400 (0-450) /uL Baso # (Auto) 100 (0-100) /uL PT (10.1-12.7) SECONDS INR (0.9-1.3) APTT 34 (26.4-36.2) SECONDS Sodium 140 (137-145) mmol/L Potassium 4.5 (3.4-5.1) mmol/L Chloride 106 (98-107) mmol/L Carbon Dioxide 30 (22-32) mmol/L BUN 19 H (7-17) mg/dL Creatinine 0.73 (0.52-1.04) mg/dL Estimated GFR > 60.0 (>60) mL/min BUN/Creatinine Ratio 26.0 H (6-22) Glucose 77 L (80-110) mg/dL Lactate (0.7-2.1) mmol/L Calcium 9.4 (8.4-10.2) mg/dL Total Bilirubin 0.8 (0.2-1.3) mg/dL AST 22 (14-36) IU/L ALT 16 (<35) IU/L Alkaline Phosphatase 89 (38-126) U/L Total Creatine Kinase (30-135) U/L CK-MB (CK-2) (<2.37) ng/mL CK-MB (CK-2) Rel Index (1.5-5.0) % Troponin I (0.01-0.034) ng/mL Total Protein 6.9 (6.3-8.2) g/dL Albumin 4.1 (3.5-5.0) g/dL Globulin 2.8 (1.7-4.1) g/dL Albumin/Globulin Ratio 1.5 (1.0-2.8) Blood Type Antibody Screen 10/16/19 10/16/19 10/16/19 Range/Units 13:28 13:28 13:28 WBC (4.5-11.0) X10^3/uL RBC (4.0-5.2) X10^6/uL Hgb (12.0-16.0) g/dL Hct (36-46) % MCV (80-100) fL MCH (26-34) PG MCHC (30-36) % RDW (11.6-14.8) % Plt Count (150-400) X10^3/uL Neut % (Auto) (50-75) % Lymph % (Auto) (25-40) % [place] % (Auto) (3-14) % Eos % (Auto) (2-4) % Baso % (Auto) (0-2) % Neut # (Auto) (3689-2998) /uL Lymph # (Auto) (1094-8827) /uL [place] # (Auto) (0-900) /uL Eos # (Auto) (0-450) /uL Baso # (Auto) (0-100) /uL PT 11.6 (10.1-12.7) SECONDS INR 1.0 (0.9-1.3) APTT (26.4-36.2) SECONDS Sodium (137-145) mmol/L Potassium (3.4-5.1) mmol/L Chloride (98-107) mmol/L Carbon Dioxide (22-32) mmol/L BUN (7-17) mg/dL Creatinine (0.52-1.04) mg/dL Estimated GFR (>60) mL/min BUN/Creatinine Ratio (6-22) Glucose (80-110) mg/dL Lactate 0.8 (0.7-2.1) mmol/L Calcium (8.4-10.2) mg/dL Total Bilirubin (0.2-1.3) mg/dL AST (14-36) IU/L ALT (<35) IU/L Alkaline Phosphatase (38-126) U/L Total Creatine Kinase (30-135) U/L CK-MB (CK-2) (<2.37) ng/mL CK-MB (CK-2) Rel Index (1.5-5.0) % Troponin I (0.01-0.034) ng/mL Total Protein (6.3-8.2) g/dL Albumin (3.5-5.0) g/dL Globulin (1.7-4.1) g/dL Albumin/Globulin Ratio (1.0-2.8) Blood Type O Positive Antibody Screen Negative 10/16/19 Range/Units 13:28 WBC (4.5-11.0) X10^3/uL RBC (4.0-5.2) X10^6/uL Hgb (12.0-16.0) g/dL Hct (36-46) % MCV (80-100) fL MCH (26-34) PG MCHC (30-36) % RDW (11.6-14.8) % Plt Count (150-400) X10^3/uL Neut % (Auto) (50-75) % Lymph % (Auto) (25-40) % [place] % (Auto) (3-14) % Eos % (Auto) (2-4) % Baso % (Auto) (0-2) % Neut # (Auto) (3344-9644) /uL Lymph # (Auto) (4986-1570) /uL [place] # (Auto) (0-900) /uL Eos # (Auto) (0-450) /uL Baso # (Auto) (0-100) /uL PT (10.1-12.7) SECONDS INR (0.9-1.3) APTT (26.4-36.2) SECONDS Sodium (137-145) mmol/L Potassium (3.4-5.1) mmol/L Chloride (98-107) mmol/L Carbon Dioxide (22-32) mmol/L BUN (7-17) mg/dL Creatinine (0.52-1.04) mg/dL Estimated GFR (>60) mL/min BUN/Creatinine Ratio (6-22) Glucose (80-110) mg/dL Lactate (0.7-2.1) mmol/L Calcium (8.4-10.2) mg/dL Total Bilirubin (0.2-1.3) mg/dL AST (14-36) IU/L ALT (<35) IU/L Alkaline Phosphatase (38-126) U/L Total Creatine Kinase 119 (30-135) U/L CK-MB (CK-2) 1.94 (<2.37) ng/mL CK-MB (CK-2) Rel Index 1.6 (1.5-5.0) % Troponin I < 0.012 (0.01-0.034) ng/mL Total Protein (6.3-8.2) g/dL Albumin (3.5-5.0) g/dL Globulin (1.7-4.1) g/dL Albumin/Globulin Ratio (1.0-2.8) Blood Type Antibody Screen Urine Dip Bedside Urine Glucose Negative Bedside Urine Bilirubin - Negative Bedside Urine Ketone - Negative Urine Specific [place] 1.025 Bedside Urine Occult Blood - Negative Bedside Urine pH 6.0 Bedside Urine Protein - Negative Bedside Urine Urobilinogen - Negative Bedside Urine Nitrite - Negative Bedside Urine Leukocytes - Negative Esterase Discharge Plan Departure Patient Disposition: Admitted As Inpatient Clinical Impression: Fracture of femoral neck, closed Qualifiers: Encounter type: initial encounter Laterality: left Qualified Code(s): S72.002A - Fracture of unspecified part of neck of left femur, initial encounter for closed fracture Discharge Date/Time: 10/16/19 19:26 Referrals: Indira Hall MD [Primary Care Provider] - Admit Date/Time: 10/16/19 17:39 Admit Provider: Nicolás Jurado <Deedee Orlando MD - Last Filed: 10/17/19 18:55> Cosign ED Attending Cosignature Attestation: I was immediately available in the department for consultation throughout this patient's visit. I agree with documentation as above. Deedee Orlando MD
--- NOTE | 2019-10-16 16:35 | PC.NURSE ---
Pt called me into the room and stated that her wouldnt come into her room. She stated that her was out at the front man and that he came into the department and was talking out at the nurses station. She stated that if she had a long enough cane she would reach out and knock him on the head with it
[2019-10-16 20:18] LABS: COVID19 -Nasal RAPID Negative (Negative)
--- NOTE | 2019-10-16 20:36 | PM.HP.1 ---
History of Present Illness History of Present Illness Date Patient Seen: 10/16/19 Time Patient Seen: 20:36 Chief complaint: Fall L Hip Pain Narrative: Neelima Mcmahon is a pleasantly confused 79 y.o. female resident of [facility] in [place], per the ED record, had a ground level fall resulting in a left intertrochanteric hip fracture. The patient is unable to provide a history, only states she is estranged from her daughter but relies on her son and ilbkbsib-no-ryr to make decisions for her. She currently denies pain, nausea or vomiting, but cannot tell me if she has any other symptoms. She stated others would say she was stupid for falling. She has a history of a hemmorhagic CVA in 2018 where she was airlifted to [facility], and currently takes lisinopril and donepizil for dementia. The patient has a POLST whereby she was to be on comfort measures only. Upon confirmation with her [id number] Missy Burton, who serves as her POA, and she informed me that she was aware that her pbzghz-js-lfj was admitted for a hip fracture and confirmed that they wanted her to have surgery to treat the hip fracture. In the ED they did an x-ray of her left hip as well as a CT of her left hip and pelvis confirming that she had a left-sided low femoral neck fracture just above the intertrochanteric just above the line. She is febrile at 100? since arriving to the floor, blood pressure 162/79, heart rate 74, respiratory rate 19, oxygen saturation of 94% on room air, she weighs 58.6 kg with a BMI of 20.2. CBC is within normal limits with a mildly elevated neutrophil count, INR is 1.0, PT 11.6, sodium 140, potassium 4.5, chloride 106, bicarb 30, creatinine 0.73, BUN 19, GFR is greater than 60, liver enzymes normal, and COVID-19 negative. Patient History Medical History Anxiety (Acute) COPD (chronic obstructive pulmonary disease) (Acute) Dementia (Acute) Headache (Acute) HTN (hypertension) (Acute) Hyperlipidemia (Acute) Osteoporosis (Acute) Parkinsons disease (Acute) Peripheral neuropathy (Acute) Pressure ulcer (Acute) TIA (transient ischemic attack) (Acute) Tremor (Acute) UTI (urinary tract infection) (Acute) Family & Social History Social History: Prior Living Arrangements House Safety & Behavioral: Feels Safe in Current Yes Environment Been Physically Hurt or No Threatened By a Person Suicidal Ideation Description None Suicide Plan Description No Plan Tobacco & Substance use: Smoking Status Former smoker alcohol intake former Substance Use Type does not use Meds Home Medications and Allergies Home Medications Medication Instructions Recorded Confirmed Type albuterol sulfate 2.5 mg INHALATION Q4-6H PRN 10/16/19 10/16/19 History dimethicone [Cavilon Durable See Protocol TOPICAL 10/16/19 History Barrier] donepezil 10 mg PO DAILY 10/16/19 10/16/19 History ipratropium bromide 1 puff INHALATION QID 10/16/19 10/16/19 History lisinopril 20 mg PO DAILY 10/16/19 10/16/19 History melatonin 3 mg PO BEDTIME PRN 10/16/19 10/16/19 History polyethylene glycol 3350 8.5 g PO DAILY 10/16/19 10/16/19 History sennosides [senna] 8.6 mg PO BID 10/16/19 10/16/19 History Allergies Allergy/AdvReac Type Severity Reaction Status Date / Time No Known Drug Allergies Allergy Verified 07/30/17 19:14 Review of Systems Review of Systems ROS: Yes unobtainable due to mental status (Patient has dementia and as questioning progresses, is not able to answer.) Exam Vital Signs (past 8 hours): - 10/16/19 13:02 10/16/19 13:22 10/16/19 13:30 Temperature 98.1 F Pulse Rate 58 L 59 L 57 L Respiratory Rate 18 Blood Pressure 161/66 H 150/72 H Pulse Oximetry 97 99 98 10/16/19 14:00 10/16/19 14:30 10/16/19 15:02 Temperature Pulse Rate 65 64 68 Respiratory Rate Blood Pressure Pulse Oximetry 96 93 98 10/16/19 15:30 10/16/19 16:00 10/16/19 16:30 Temperature Pulse Rate 72 75 79 Respiratory Rate Blood Pressure Pulse Oximetry 97 98 95 10/16/19 17:00 10/16/19 17:30 10/16/19 18:00 Temperature Pulse Rate 76 68 82 Respiratory Rate Blood Pressure Pulse Oximetry 96 96 97 10/16/19 19:23 10/16/19 19:45 Temperature 100 F H Pulse Rate 95 H 74 Respiratory Rate 16 19 Blood Pressure 158/75 H 162/79 H Pulse Oximetry 95 94 Oxygen Delivery Method Room Air Narrative Exam Narrative: PE: Gen: Alert, oriented to self only, thin 79 y.o. female, NAD HEENT: normocephalic, atraumatic, conjunctiva clear, sclera non-icteric, oral mucosa pink and moist Neck: supple, full ROM, no JVD, trachea is midline Resp: Lungs CTA, non-labored breathing CV: RRR, no murmur or rubs Abd: soft, non-tender, normoactive BTs Skin: no lesions or rashes, dry and intact Neuro: Alert to self, but unable to follow directions. Speech clear and coherent. Extremities: currently on bedrest and fall precautions due to left hip fracture Psyche: pleasantly confused Objective Labs Result Diagrams: 10/16/19 13:28 10/16/19 13:28 Labs: Laboratory Results - last 24 hr 10/16/19 10/16/19 10/16/19 13:28 13:28 13:28 WBC 10.7 RBC 4.30 Hgb 13.3 Hct 39.7 MCV 92.3 MCH 31.0 MCHC 33.5 RDW 13.8 Plt Count 296 Neut % (Auto) 78.4 H Lymph % (Auto) 8.4 L [place] % (Auto) 8.6 Eos % (Auto) 3.7 Baso % (Auto) 0.9 Neut # (Auto) 8400 H Lymph # (Auto) 900 L [place] # (Auto) 900 Eos # (Auto) 400 Baso # (Auto) 100 PT INR APTT 34 Sodium 140 Potassium 4.5 Chloride 106 Carbon Dioxide 30 BUN 19 H Creatinine 0.73 Estimated GFR > 60.0 BUN/Creatinine Ratio 26.0 H Glucose 77 L Lactate Calcium 9.4 Total Bilirubin 0.8 AST 22 ALT 16 Alkaline Phosphatase 89 Total Creatine Kinase CK-MB (CK-2) CK-MB (CK-2) Rel Index Troponin I Total Protein 6.9 Albumin 4.1 Globulin 2.8 Albumin/Globulin Ratio 1.5 COVID-19 PCR Blood Type Antibody Screen 10/16/19 10/16/19 10/16/19 13:28 13:28 13:28 WBC RBC Hgb Hct MCV MCH MCHC RDW Plt Count Neut % (Auto) Lymph % (Auto) [place] % (Auto) Eos % (Auto) Baso % (Auto) Neut # (Auto) Lymph # (Auto) [place] # (Auto) Eos # (Auto) Baso # (Auto) PT 11.6 INR 1.0 APTT Sodium Potassium Chloride Carbon Dioxide BUN Creatinine Estimated GFR BUN/Creatinine Ratio Glucose Lactate 0.8 Calcium Total Bilirubin AST ALT Alkaline Phosphatase Total Creatine Kinase CK-MB (CK-2) CK-MB (CK-2) Rel Index Troponin I Total Protein Albumin Globulin Albumin/Globulin Ratio COVID-19 PCR Blood Type O Positive Antibody Screen Negative 10/16/19 10/16/19 13:28 18:20 WBC RBC Hgb Hct MCV MCH MCHC RDW Plt Count Neut % (Auto) Lymph % (Auto) [place] % (Auto) Eos % (Auto) Baso % (Auto) Neut # (Auto) Lymph # (Auto) [place] # (Auto) Eos # (Auto) Baso # (Auto) PT INR APTT Sodium Potassium Chloride Carbon Dioxide BUN Creatinine Estimated GFR BUN/Creatinine Ratio Glucose Lactate Calcium Total Bilirubin AST ALT Alkaline Phosphatase Total Creatine Kinase 119 CK-MB (CK-2) 1.94 CK-MB (CK-2) Rel Index 1.6 Troponin I < 0.012 Total Protein Albumin Globulin Albumin/Globulin Ratio COVID-19 PCR Negative Blood Type Antibody Screen Assessment & Plan Assessment & Plan narrative: Missy Mcmahon is admitted for treatment and management of a left intratrochanteric hip fracture. Her POA has provided permission for her to undergo orthopedic surgery to likely pin the hip fracture. Left intertrochanteric hip fracture, acute, present on admission -Dr. Castano, orthopedic surgery will be assuming the case, appreciate consultation and care -NPO after midnight -Tylenol and IV morphine for pain -she has been typed and screened Dementia, chronic, present on admission -patient has a history of a intercerebral bleed in 2018 likely contributing to her current cognitive status -continue home dose of donepezil 10 mg p.o. daily Essential hypertension, chronic, present on admission -continue home dose of lisinopril 20 mg p.o. daily Presumed chronic constipation -continue home doses of polyethylene glycol 8.5 g p.o. daily and senna 8.6 mg p.o. b.i.d. Consults: Dr. Castano, Orthopedic Surgery consult and involvement is appreciated. Patient is admitted under inpatient status with expected length of stay greater than 2 midnights due to severity of presenting symptoms, risk of adverse event, and complexity of treatment plan. FEN: LR at 75 ml/hour, NPO after midnight, BMP and magnesium in the am. VTE prophylaxis: Right sided knee high SCD Dispo: Probably rehab discharge Code Status: DNR/DNI as discussed with [id number], surrogate COVID-19 COVID-19 status: Negative Result date/Date tested (Pos, Neg/Pending): 10/16/19 Quality VTE Deep Vein Thrombosis/Pulmonary Embolism Present on Admission: No
[2019-10-16] MEDS: DOCUSATE 100 MG CAPSULE PO (21:03)
[2019-10-16] MEDS: SENNOSIDES 8.6 MG TABLET PO (21:03)
[2019-10-16] MEDS: MELATONIN 3 MG TABLET PO (21:03)
[2019-10-16] MEDS: LACTATED RINGERS 1,000 ML 75 ML IV (22:36)
[2019-10-17] VITALS (11 sets, daily range): BP systolic 115–154; BP diastolic 60–94; PULSE 66–120; RESP 12–20; TEMP 36.8–37.4; O2SAT 83–99; BMI 20.2
--- NOTE | 2019-10-17 | DI.RAD.S_ITS ---
PROCEDURE: XR HIP W PEL IF DONE LT 2V INDICATIONS: ORIF LEFT HIP TECHNIQUE: 4 views of the hip were acquired. COMPARISON: [facility], CR, XR HIP W PEL IF DONE LT 2V, 10/16/2019, 13:25. FINDINGS: Spot fluoroscopic intraoperative images demonstrating plate and dynamic screw fixation of the proximal left femur. Expected intraoperative alignment. Dictated by: Moshe Dixon M.D. on 10/17/2019 at 15:57 Approved by: Moshe Dixon M.D. on 10/17/2019 at 15:58
[2019-10-17] MEDS: MORPHINE 2 MG/ML INJ IV ×2 (05:18→10:13)
[2019-10-17 05:48] LABS: Add Manual Diff / Slide Review NO; Basophils Absolute Auto 100 /uL (0-100); Basophils Percent Auto 0.9 % (0-2); Eosinophils Absolute Auto 300 /uL (0-450); Eosinophils Percent Auto 4.3 % (2-4); Hematocrit 36.9 % (36-46); Hemoglobin 12.5 g/dL (12.0-16.0); Lymphocytes Absolute Auto 1200 /uL (1100-4500); Lymphocytes Percent Auto 16.1 % (25-40); Mean Corpuscular HGB Conc 33.9 % (30-36); Mean Corpuscular Hemoglobin 30.8 PG (26-34); Mean Corpuscular Volume 90.9 fL (80-100); Monocytes Absolute Auto 1100 /uL (0-900); Monocytes Percent Auto 14.2 % (3-14); Neutrophils Absolute Auto 4900 /uL (1500-7000); Neutrophils Percent Auto 64.5 % (50-75); Platelet Count 266 X10^3/uL (150-400); Red Blood Cell Count 4.06 X10^6/uL (4.0-5.2); Red Cell Distribution Width 13.4 % (11.6-14.8); White Blood Cell Count 7.6 X10^3/uL (4.5-11.0)
[2019-10-17 05:57] LABS: BUN Creatinine Ratio 21.5 (6-22); Blood Urea Nitrogen 14 mg/dL (7-17); Calcium 9.1 mg/dL (8.4-10.2); Carbon Dioxide 27 mmol/L (22-32); Chloride 104 mmol/L (98-107); Estimated Glomerular Filt Rate > 60.0 mL/min (>60); Glucose 101 mg/dL (80-110); HEMOLYSIS < 15 (0-50); Magnesium 1.9 mg/dL (1.6-2.3); Potassium 3.9 mmol/L (3.4-5.1); Sodium 135 mmol/L (137-145)
--- NOTE | 2019-10-17 09:01 | PT-IP ANOTE ---
pt has a surgery scheduled today at 1330. will f/u postop.
[2019-10-17] MEDS: LACTATED RINGERS 1,000 ML 75 ML IV ×2 (10:14→13:24)
--- NOTE | 2019-10-17 12:53 | PT-IP ANOTE ---
pt is scheduled to have surgery at 130pm today. will f/u after surgery.
--- NOTE | 2019-10-17 14:07 | P.HP_ITS ---
History of Present Illness History of Present Illness Date Patient Seen: 10/17/19 Time Patient Seen: 14:08 Chief complaint: Fall L Hip Pain Narrative: 79-year-old female status post ground level fall with left hip pain and inability bear weight brought to the emergency room where she was noted to have a minimally displaced intertrochanteric hip fracture Patient History Medical History Anxiety (Acute) COPD (chronic obstructive pulmonary disease) (Acute) Dementia (Acute) Headache (Acute) HTN (hypertension) (Acute) Hyperlipidemia (Acute) Osteoporosis (Acute) Parkinsons disease (Acute) Peripheral neuropathy (Acute) Pressure ulcer (Acute) TIA (transient ischemic attack) (Acute) Tremor (Acute) UTI (urinary tract infection) (Acute) Family & Social History Social History: household members caregiver Prior Living Arrangements Skilled Nurse Facility Safety & Behavioral: Feels Safe in Current Yes Environment Been Physically Hurt or No Threatened By a Person Suicidal Ideation Description None Suicide Plan Description No Plan Tobacco & Substance use: Smoking Status Former smoker alcohol intake former Substance Use Type does not use Meds Home Medications and Allergies Home Medications Medication Instructions Recorded Confirmed Type albuterol sulfate 2.5 mg INHALATION Q4-6H PRN 10/16/19 10/16/19 History dimethicone [Cavilon Durable See Rx Instructions .ROUTE 10/16/19 10/17/19 History Barrier] .COMPLEX PRN donepezil 10 mg PO DAILY 10/16/19 10/16/19 History ipratropium bromide 1 puff INHALATION QID 10/16/19 10/16/19 History lisinopril 20 mg PO DAILY 10/16/19 10/16/19 History melatonin 3 mg PO BEDTIME PRN 10/16/19 10/16/19 History polyethylene glycol 3350 8.5 g PO DAILY 10/16/19 10/16/19 History sennosides [senna] 8.6 mg PO BID 10/16/19 10/16/19 History Allergies Allergy/AdvReac Type Severity Reaction Status Date / Time No Known Drug Allergies Allergy Verified 07/30/17 19:14 Review of Systems Review of Systems ROS: Yes unobtainable due to mental status Exam Vital Signs (past 8 hours): - 10/17/19 08:38 10/17/19 11:38 Temperature 98.3 F 98.8 F Pulse Rate 71 66 Respiratory Rate 16 17 Blood Pressure 148/64 H 154/89 H Pulse Oximetry 95 92 Oxygen Delivery Method Room Air Oxygen Flow Rate 0 Narrative Exam Narrative: Patient is conversant but not fully oriented. Afebrile and vital signs are stable HEENT normocephalic atraumatic Heart regular rate rhythm Lungs clear to auscultation Abdomen benign Extremities benign with the exception of left lower extremity held in a somewhat shortened and internally rotated position pain with any movement. Sensation and circulation are grossly intact. Objective Labs Result Diagrams: 10/17/19 04:48 10/17/19 04:48 Labs: Laboratory Results - last 24 hr 10/16/19 10/16/19 10/16/19 13:28 13:28 18:20 WBC RBC Hgb Hct MCV MCH MCHC RDW Plt Count Neut % (Auto) Lymph % (Auto) [place] % (Auto) Eos % (Auto) Baso % (Auto) Neut # (Auto) Lymph # (Auto) [place] # (Auto) Eos # (Auto) Baso # (Auto) Sodium Potassium Chloride Carbon Dioxide BUN Creatinine Estimated GFR BUN/Creatinine Ratio Glucose Calcium Magnesium Total Creatine Kinase 119 CK-MB (CK-2) 1.94 CK-MB (CK-2) Rel Index 1.6 Troponin I < 0.012 COVID-19 PCR Negative Blood Type O Positive Antibody Screen Negative 10/17/19 10/17/19 04:48 04:48 WBC 7.6 RBC 4.06 Hgb 12.5 Hct 36.9 MCV 90.9 MCH 30.8 MCHC 33.9 RDW 13.4 Plt Count 266 Neut % (Auto) 64.5 Lymph % (Auto) 16.1 L [place] % (Auto) 14.2 H Eos % (Auto) 4.3 H Baso % (Auto) 0.9 Neut # (Auto) 4900 Lymph # (Auto) 1200 [place] # (Auto) 1100 H Eos # (Auto) 300 Baso # (Auto) 100 Sodium 135 L Potassium 3.9 Chloride 104 Carbon Dioxide 27 BUN 14 Creatinine 0.65 Estimated GFR > 60.0 BUN/Creatinine Ratio 21.5 Glucose 101 Calcium 9.1 Magnesium 1.9 Total Creatine Kinase CK-MB (CK-2) CK-MB (CK-2) Rel Index Troponin I COVID-19 PCR Blood Type Antibody Screen Assessment & Plan Assessment & Plan narrative: 79-year-old female ground level fall left intertrochanteric hip fracture plan ORIF. Informed consent obtained via telephone from the patient's son and lbmqgfvr-io-[id number]. Uhxrlljq-[id number]-crh Missy has a durable power of research support specialist. COVID-19 COVID-19 status: Negative Result date/Date tested (Pos, Neg/Pending): 10/16/19 Quality VTE Deep Vein Thrombosis/Pulmonary Embolism Present on Admission: No
[2019-10-17] MEDS: CEFAZOLIN 1 GM/50 ML FROZ.PIGGY IV (14:52)
--- NOTE | 2019-10-17 15:02 | SUR.OPER ---
Head on pillow. Supine on fracture table with operative leg secured in traction. Other leg secured in padded stirrup. Arms across chest, secured with sheet.
[2019-10-17] MEDS: BUPIVACAINE 0.5% W/ EPI (PF) 30 ML VIAL INJ (15:39)
--- NOTE | 2019-10-17 16:21 | PM.OP.1 ---
Operative Date/Time/Diagnoses Date of procedure: 10/17/19 Time of procedure: 16:21 Pre-op diagnosis: Left intertrochanteric hip fracture Post-op diagnosis: same Procedure & Clinicians Procedure: ORIF left intertrochanteric hip fracture with dynamic hip screw (CPT code 91900) Same procedure as scheduled: Yes Indications: 79-year-old female status post ground level fall with minimally displaced intertrochanteric hip fracture. Discussed nature of condition, prognosis, options risks and benefits including anesthesia with the patient's family who have durable swcri-uy-ianzjcah and informed consent obtained. Surgeon: Masood Castano Click Yes if Unassisted: Yes Anesthesia Type: General Operative Notes Closure Type: primary Specimen(s): none sent Estimated Blood Loss (mL): 150 Procedure in detail: After administration of IV antibiotics and satisfactory induction of a general anesthetic patient placed supine on the fracture table with the right leg in the 90 90 well leg anglin and the left leg in the traction boot in full extension and slight internal rotation. Fluoroscopic examination performed demonstrating satisfactory maintenance of minimally displaced position of the intertrochanteric hip fracture in AP and lateral planes. Left hip and lower extremity then prepped and draped in the usual sterile fashion and a longitudinal incision created in line with the femur just distal to the trochanter. Incision carried sharply through skin and subcutaneous tissues down the fascia barak which was then divided longitudinally then the vastus lateralis was divided longitudinally in the muscle bellies stripped off the posterior intermuscular septum anteriorly down to the lateral cortex of the femur. Retractors then placed and 135 degree guide was placed in the desired location of the guide pin and driven from the lateral cortex of the femur up through the femoral neck and into the femoral head in the desired location. This was then measured for depth and then drilled with a triple Reamer and the hip screw inserted. Four hole 135 degree standard barrel sideplate was then inserted and affixed to the diaphysis of the femur with 3 bicortical screws. Fluoroscopic images in AP and lateral planes demonstrate satisfactory maintenance of position of the fracture and excellent placement and position of the implants. The wound was copiously irrigated and the vastus lateralis fascia was closed with a running 2 0 Vicryl, the fascia baark was closed with a running 0 Vicryl, and the subcutaneous tissues were closed in 2 layers of 0 Vicryl and 2 0 Vicryl then the skin was closed with watson. The wound was infiltrated with 0.5% Marcaine with epinephrine and sterile dressings were applied. Anesthesia terminated the patient taken to postanesthetic recovery in satisfactory condition. Complications: none Post-operative Condition: stable Disposition: PACU Plan for aftercare: Routine postoperative fracture care, wound care weightbearing as tolerated physical therapy as tolerated. Discharge when medically stable. Recommend follow-up for wound check and staple removal with repeat x-rays at 2 weeks postop
--- NOTE | 2019-10-17 16:28 | SUR.PHASEI ---
Report and handoff to ajgjit Nash on floor. Pt stable, demented, not oriented to place, person or time. Relaxed in bed when left alone.
--- NOTE | 2019-10-17 18:01 | PC.NURSE ---
LATE NOTE, PATIENT BACK FROM SURGERY 1620 DRSG TO LEFT HIP CDI.PATIENT IS VERY CONFUSED,REFUSING SCD,NASAL CANNULA, RT WAS ABLE TO SET UP BLOW BY AND THIS IS KEEPING SATS IN MID 90'S . SCDS MAKE HER VERY AGITATED. JUVENCIO IS PATENT
--- NOTE | 2019-10-17 20:48 | P.PN_ITS ---
Subjective Subjective Date Patient Seen: 10/17/19 Time Patient Seen: 20:48 Interval history: Neelima Mcmahon is a pleasantly confused 79 y.o. female resident of [facility] in [place] had a ground level fall resulting in a left intertrochanteric hip fracture. She underwent a pending today. She will continue with physical therapy with likely plan for penitentiary upon discharge. Exam Vital Signs (past 8 hours): - 10/17/19 15:52 10/17/19 15:57 10/17/19 16:02 Temperature 99.3 F Pulse Rate 83 82 82 Respiratory Rate 14 16 12 Blood Pressure 144/82 H 148/73 H 138/60 Pulse Oximetry 95 93 93 10/17/19 16:07 10/17/19 16:20 10/17/19 16:50 Temperature 98.4 F 98.8 F Pulse Rate 82 120 H 81 Respiratory Rate 13 20 18 Blood Pressure 131/70 115/68 137/78 Pulse Oximetry 92 83 L 86 L 10/17/19 18:20 10/17/19 19:20 Temperature 98.8 F Pulse Rate 71 69 Respiratory Rate 18 18 Blood Pressure 135/72 137/74 Pulse Oximetry 99 97 Oxygen Delivery Method Room Air Oxygen Flow Rate 5 Narrative Exam Narrative: PE: Gen: Alert, oriented to self only, thin 79 y.o. female, NAD HEENT: normocephalic, atraumatic, conjunctiva clear, sclera non-icteric, oral mucosa pink and moist Neck: supple, full ROM, no JVD, trachea is midline Resp: Lungs CTA, non-labored breathing CV: RRR, no murmur or rubs Abd: soft, non-tender, normoactive BTs Skin: no lesions or rashes, dry and intact Neuro: Alert to self, but unable to follow directions. Speech clear and coherent. Extremities: no edema Psyche: pleasantly confused, axo x1 Objective Labs Result Diagrams: 10/17/19 04:48 10/17/19 04:48 Labs: Laboratory Results - last 24 hr 10/17/19 10/17/19 04:48 04:48 WBC 7.6 RBC 4.06 Hgb 12.5 Hct 36.9 MCV 90.9 MCH 30.8 MCHC 33.9 RDW 13.4 Plt Count 266 Neut % (Auto) 64.5 Lymph % (Auto) 16.1 L Mclennan % (Auto) 14.2 H Eos % (Auto) 4.3 H Baso % (Auto) 0.9 Neut # (Auto) 4900 Lymph # (Auto) 1200 Mclennan # (Auto) 1100 H Eos # (Auto) 300 Baso # (Auto) 100 Sodium 135 L Potassium 3.9 Chloride 104 Carbon Dioxide 27 BUN 14 Creatinine 0.65 Estimated GFR > 60.0 BUN/Creatinine Ratio 21.5 Glucose 101 Calcium 9.1 Magnesium 1.9 Assessment & Plan Assessment & Plan narrative: Missy Mcmahon is admitted for treatment and management of a left intratrochanteric hip fracture. She underwent operative pinning procedure today with orthopedic surgery. Will plan for physical therapy tomorrow with plan for likely discharge to penitentiary. 1. Left intertrochanteric femur fracture, acute, present on admission -patient underwent surgical pinning of her left intertrochanteric hip fracture today -continue pain control -PT/OT to start tomorrow 2. Dementia, chronic, present on admission -patient has a history of a intercerebral bleed in 2018 likely contributing to her current cognitive status -continue home dose of donepezil 10 mg p.o. daily 3. Essential hypertension, chronic, present on admission -continue home dose of lisinopril 20 mg p.o. daily 4. Presumed chronic constipation -continue home doses of polyethylene glycol 8.5 g p.o. daily and senna 8.6 mg p.o. b.i.d. Consults: Orthopedic surgery Dispo: Anticipate discharge to penitentiary, pending PT and OT evaluations Code Status: DNR/DNI as discussed with [id number], surrogate Quality VTE Deep Vein Thrombosis/Pulmonary Embolism Present on Admission: No
[2019-10-17] MEDS: CEFAZOLIN 2 GM/100 ML FROZ.PIGGY IV (22:33)
[2019-10-18] VITALS (10 sets, daily range): BP systolic 117–129; BP diastolic 54–67; PULSE 72–86; RESP 16–21; TEMP 36.6–37.3; O2SAT 92–97
[2019-10-18] MEDS: HYDROCODONE/ACET 5/325 TABLET 1 TAB PO ×3 (05:11→17:57)
[2019-10-18 06:13] LABS: Hematocrit 33.7 % (36-46); Hemoglobin 11.6 g/dL (12.0-16.0)
[2019-10-18] MEDS: CEFAZOLIN 2 GM/100 ML FROZ.PIGGY IV (06:21)
[2019-10-18] MEDS: ACETAMINOPHEN 325 MG TABLET 650 MG PO ×2 (09:33→20:17)
[2019-10-18] MEDS: DOCUSATE 100 MG CAPSULE PO ×2 (09:33→20:16)
--- NOTE | 2019-10-18 10:51 | PC.NURSE ---
Addendum entered by Neeta Nicole R.N. 10/18/19 14:29: Patient up with physical therapy and this did not go to well for patient. She is a max assist with 2 people and will still only be PT transfer. Getting back to bed was tougher for patient, she is confused and yells out. Given vicodin and she is now lying supine and comfortable. Patient has a leathery area on her r.upper buttocks fold that is not open, but looks like she has had a soar their before from pressure. Will reposition patient every 2-3 hours. We are also floating her heels as she has some pressure soars on the bottom of her feet. Original Note: Patient is Alert but disoriented x3. She is scared and unsure of people, needing to be approached in a soft manner and voice. She will then let you work with her. She has a l.hip dressing that is bulky but cdi. She has dressings, to lower bilateral feet that are also dry and intact. Patient needs to have her feet both floated on pillows to prevent further redness to heals or breakdown. She has a childs catheter that is putting out yellow urine. IV fluids restarted as patient only had about 150cc of urine out on drum attendant. At one point she was playing with her iv line but stopped. Area looks good and is working well. Patient comes from assisted living over in [facility]! SPECIAL MACHINE STITCHER getting her cleaned up at this time.
[2019-10-18] MEDS: IPRATROPIUM HFA 1 PUFF INH ×3 (11:24→19:48)
--- NOTE | 2019-10-18 13:00 | CM.DANOTE ---
Patient is an 79 year old female who was admitted on 10/16/19 for GLF, Hip Pain. Pt has [facility] and [employer] for insurance and her PCP is Dr. Indira Hall. EMR was reviewed. Per MD, per Ortho Consult pt required surgery for her hip yesterday. PT ordered and pending. Pt quite demented and SW met with pt bedside and was unable to get any historical information. Per PT, called pt's Assisted Living [facility] [place] [facility] and confirmed that pt is mostly independent with care and uses a FWW and they provide medication and bathing assist. Pt has only resided at their residence for about 2 weeks and moved from [facility] in [place] for about 6 months. SW called [facility] for DPOA information and pt's Dtr Daryl Louis is pt's DPOA and is to pt's son Alden and both are involved in pt's care. [facility] states they do not currently need any clinicals faxed but closer to d/c after PT works with pt to determine if they can accept pt back vs SNF at d/c. SW called pt's DIL/DPOA Missy ([phone] H, c) and confirmed that pt was unsafe for remaining home and they helped move pt into Assisted Living and they also live in [place]. Pt's spouse still remains at home but is showing signs of dementia himself and not adequately caring for himself and therefore DIL goes daily to check on pt's spouse. Pt has a hx of SNF at [facility] and SW discussed possible need for SNF at d/c pending progress with PT and [facility] review of pt before determining if they can accept at d/c. CLEMENTE Louis acknowledges understanding and preference would be for pt to return to [facility] at d/ but if SNF needed SW provided the SNF Choice List via phone and preference would be to stay on etoile and go to [facility]. SW called [facility] with new referral and SHEEBA Choi kindly faxed clinicals to review. PASRR completed in anticipation of SNF at d/c. Plan: SW to follow closely after PT initial eval and recommendations towards ongoing coordination between [facility] and [facility] review to determine EDILBERTO vs SNF. SW to keep DIL/DPOA updated. VALENTIN Rodriges Discharge Planning/Care Management CM Discharge Assessment Start: 10/18/19 12:56 Freq: Status: Active Protocol: Document 10/18/19 12:58 BF (Rec: 10/18/19 13:00 BF [id number]) Discharge Planning Assessment Assigned Bellows Tester VALENTIN Perry DPOA/Assigned Designee Name CLEMENTE Louis Contact Information [phone] Advance Directives? Yes History Provided By Patient,Family Member,Medical Record Has Patient been admitted in last 30 No days? Prior Living Arrangements Assisted Living Comment [facility] in [place] Household Members none Type of transporation used prior to Relies on Others admit Facility Name Admitted From: [facility] Willing to Return to Facility? Yes Independent with ADL's Yes: mostly, needs bathing and med assist Is patient alert and oriented? No: quite demented Needs Assistance With Bathing,Meal Prep,Managing Medications,Home Chores / Shopping Caregiver for Another No Patient/Family Preference [facility] Facility Comment Pending PT eval and recommendations Barriers to Discharge No Discharge Plan [facility] Facility Transportation Arrangement If SNF than facilty van for transport Referrals Initiated [facility] Medicare Choice List Provided Yes SNF/HH Preference [facility] Has Agency SNF been contacted Yes Review Status In Process Please Provide Date Initial DC 10/18/19 Assessment Was Performed Next Review Type Continued Stay Review
--- NOTE | 2019-10-18 13:04 | PT.IIE ---
Current Diagnoses Unspecified fracture of left femur, initial encounter for closed fracture (10/16/19) Surgery Performed Operation Date: 10/17/19 13:30 Actual Procedures p ORIF Hip DHS(Left) - Masood Castano MD Medical History (Last Reviewed 10/17/19 @ 14:08 by Masood Castano MD) Anxiety (Acute) COPD (chronic obstructive pulmonary disease) (Acute) Dementia (Acute) Headache (Acute) HTN (hypertension) (Acute) Hyperlipidemia (Acute) Osteoporosis (Acute) Parkinsons disease (Acute) Peripheral neuropathy (Acute) Pressure ulcer (Acute) TIA (transient ischemic attack) (Acute) Tremor (Acute) UTI (urinary tract infection) (Acute) Physical Therapy Inpatient Evaluation/Re-Eval M1 PT/OT-IP Prior Functional Status Start: 10/18/19 08:21 Freq: NEEDED Status: Active Protocol: Document 10/18/19 12:32 (Rec: 10/18/19 13:04 [id number]) Medical Review Prior Functional Status Medical History Reviewed Yes Diet/Fluid Consistency Regular Communication Per nursing staff from [facility], pt is demented with confusion and poor short term memory at baseline. Pt has significant mood swing and very anxious in general. She tends to cry easily when she gets frustrated or anxious. Requires soft spoken tone to instruct pt. Mobility and Gait Per nursing staff from [facility], pt was able to amb around with FWW within the facility without supervision. Able to get OOB and transfer independently Activities of Daily Living and IADL's pt needed help to reach down and reaching behind her band during showering. She usually uses shower chair and nursing staff assist as needed. Facility provides meal and transport. Social History Household Members caregiver Living Arrangements Assisted Living Number of Stairs To Enter/Railing? level entry Home Environment High Toilet,Walk in Shower Home Equipment Front Wheel Walker,Raised Toilet Seat w/Armrests,Hand Held Shower,Grab Bars Near Toilet,Grab Bars In Shower Employment Status Retired Additional Social History Comment Per EMR, pt has a patient's son and [id number]. [id number] Missy has a durable power of securities attorney. This PT unable to reach out to him via phone number listed from EMR ( disconnected number). Per nursing from [facility], pt was there only for 2 weeks but she resided in [facility] prior. M2 PT-IP Current Condition Start: 10/18/19 08:21 Freq: NEEDED Status: Active Protocol: Document 10/18/19 12:32 HH (Rec: 10/18/19 13:04 [id number]) Physical Therapy Current Condition Current Condition Evaluation Date 10/18/19 Treatment Diagnosis L hip ORIF, difficulty in walking, fall risk Onset Date 10/17/19 Weight Bearing Status Weight Bearing Status Weight Bear as Tolerated M3 PT-IP Subjective Start: 10/18/19 08:21 Freq: NEEDED Status: Active Protocol: Document 10/18/19 12:32 HH (Rec: 10/18/19 13:04 [id number]) Subjective Physical Therapy Visit Type Type Initial Evaluation Visit Start Time 11:31 Visit Stop Time 12:20 Total Visit Minutes 49 Notes VALENTIN Santacruz assisted 2nd half of the session d/t pt's anxious response. Number of PT SITTER Visits 0 Physical Therapy Visit Comments Patient Comments I fell yesterday and it hurts a lot Patient Goals Unable to obtain. Therapy Pain Assessment Pain When Pain Assessed During Mobility Pain Present Pain Present Pain Reported Location L hip Intensity 8 Scale Used Dixon-Jimenes (Faces) Description Acute Pain Behaviors Calling Out,Crying,Facial Grimacing,Guarding,Holding Area,Moaning Pain Management Techniques Apply Cold,Timing of Activity with Medications M4 PT-IP Mobility and Gait Start: 10/18/19 08:21 Freq: NEEDED Status: Active Protocol: Document 10/18/19 12:32 HH (Rec: 10/18/19 13:04 [id number]) PT-Bed Mobility Assessment Supine to Sit Supine to Sit Maximum Assistance,2 Person Assistance,Head of Bed Elevated Scooting Scooting to Edge of Bed Maximum Assistance PT-Transfer Assessment Sit to and From Stand Sit to and from Stand Maximum Assistance,2 Person Assistance,Use of Upper Extremities Equipment Transfer Assistive Device Gait Belt,Front Wheeled Walker Orthotic/Prosthetic Devices or Brace: No Transfers Transfer Destination Bed,Chair Transfer Technique Lateral Scoot Transfer Ability Level of Assist Maximum Assistance,2 Person Assistance,Use of Upper Extremities Comments Mobility Comments Pt was in elevated head of bed upon PT arrival. BP at 127/69 . B heels elevated d/t new sores. Pt is AxOx1 but she was able to recall her fall but didnt know about her surgery. Pt stated that she never she used a walker before and did not need any help. This PT initially attempted to pivot her LLE to R side but she was crying out loud and needed constant reassurance and encouragement to mobilize. VALENTIN Santacruz then came in to assist and provided 2P max A to pivot her to R EOB since pt was somewhat resisting. Pt was calling out for pain and this PT spent minutes to reassure her. Pt then attempted to stand up but she needed 2P MaxA to fully extend to upright position. However, pt was unable to WB on LLE even with verbal and tactile cues. She then impulsively scooted her RLE and FWW laterally to transfer herself with max 2PA to chair on R side. Pt did not keep her walker close and showed poor desend without using chair armrests. Pt was crying out for pain during the transfer but she felt better once she sat down. Reclined her chair and pillow placed underneath BLEs. call light placed within reach. Notified nursing to replace chair with BSC if she had BM instead of pivot transfer. Gait Assessment Comments Gait Comments unable to amb Stair Climbing Assessment Comments Stair Climbing Comments unable to assess PT-Balance Assessment Sitting Balance and Reactions Static Sitting Balance Ability Good Dynamic Sitting Balance Ability Fair Standing Balance and Reactions Static Standing Balance Ability Fair Dynamic Standing Balance Ability Poor Device Used FWW M5 PT-IP Objective Assessments Start: 10/18/19 08:21 Freq: NEEDED Status: Active Protocol: Document 10/18/19 12:32 (Rec: 10/18/19 13:04 [id number]) Orientation Orientation/Cognition Level of Alertness Confusional State Orientation Name,Situation Language Function Ability No Deficits Noted,Hard of Hearing Safety Awareness Decreased Safety Awareness Memory Description Short Term Impaired,Harvest Worker Field Crop Impaired Gross Range of Motion Upper Extremity ROM Assessment Within Functional Limits Lower Extremity ROM Assessment Left Impaired Impairments significant pain noted with minimal movements Strength Upper Extremity Strength Assessment Within Functional Limits Lower Extremity Strength Assessment Left Impaired Hip 2/5 Knee 3/5 Comments Strength Comments significant pain noted with minimal movements on L hip M6 PT-IP Treatment Start: 10/18/19 08:21 Freq: NEEDED Status: Active Protocol: Document 10/18/19 12:32 (Rec: 10/18/19 13:04 [id number]) Physical Therapy Treatment Education Education Provided Weight Bearing Status,Safety M7 PT-IP Assessment and Plan Start: 10/18/19 08:21 Freq: NEEDED Status: Active Protocol: Document 10/18/19 12:32 (Rec: 10/18/19 13:04 [id number]) PT Summary Assessment and Plan Potential Rehabilitation Potential Fair Status of Condition at Evaluation Evolving Summary Impairments Pain,ROM,Strength,Balance, Cognition,Bed Mobility, Transfers,Gait,Activity Tolerance Assessment Summary This is a moderate complexity evaluation for this 79 yo female POD1 L hip ORIF s/p GLF. This PT reached out to [facility] and nursing staff stated pt was demented at baseline with significant mood swing who was hard to follow command and provides accurate information of anything. She was mod independent with FWW without supervision but needed help for showering, meal preparation etc. Upon assessment, pt was very confused and constantly calling out/ crying for pain. She was hardly able to move her LLE and unable to WB on LLE during bed<> chair transfers. She requires constant reassurance and encourage to mobilize and needed 2P max A for all mobility at this point. She is far from her baseline and Pt will defintely benefit from skilled care to address her extensive needs for rehab and ADLs. Goals Bed Mobility Goal Minimal Assistance Transfer Goal Minimal Assistance,Front Wheeled Walker Gait Goal Minimal Assistance,Front Wheel Walker Gait Distance 10 Days to Meet Goals 5 Frequency of Treatment Frequency Of Treatment Twice a Day Treatment Plan Physical Therapy Treatment Plan Bed Mobility Training,Transfer Training,Gait Training, Therapeutic Exercise,Balance Retraining,Post Op Education, Discharge Planning,Hot or Cold Pack,Manual Therapy Other Recommendations and Next Treatment faciliate WB on LLE Focus mobility as cyn with FWW Recommendations To Nursing Amount of Assist Needed 2 Person Assist Discharge Recommendations PT Discharge Recommendations SNF Rehab Transportation Needs at Discharge Wheelchair/Cabulance,Stretcher /Ambulance
--- NOTE | 2019-10-18 14:45 | PM.PN.1 ---
Subjective Subjective Date Patient Seen: 10/18/19 Interval history: Neelima Mcmahon is a pleasantly confused 79 y.o. female resident of [facility] facility in [place] had a ground level fall resulting in a left intertrochanteric hip fracture. Postop day 1. Left hip ORIF. Patient is quite confused than unaware of situation. Denies pain. She is 2 person max assist. Exam Vital Signs (past 8 hours): - 10/18/19 08:11 10/18/19 08:33 10/18/19 11:25 Temperature 98.2 F Pulse Rate 74 72 Respiratory Rate 16 16 Blood Pressure 129/63 Pulse Oximetry 97 95 94 Oxygen Delivery Method Room Air Oxygen Flow Rate 0 Narrative Exam Narrative: General: Alert but confused and somewhat distressed female Extremities: Left hip postop dressing dry and intact. Objective Labs Result Diagrams: 10/18/19 05:19 10/17/19 04:48 Labs: Laboratory Results - last 24 hr 10/18/19 05:19 Hgb 11.6 L Hct 33.7 L Assessment & Plan Assessment & Plan narrative: Missy Mcmahon is admitted for treatment and management of a left intratrochanteric hip fracture. She underwent operative pinning procedure today with orthopedic surgery. Will plan for physical therapy tomorrow with plan for likely discharge to care home. 1. Left intertrochanteric femur fracture, acute, present on admission -patient underwent surgical pinning of her left intertrochanteric hip fracture -continue scheduled Tylenol -PT/OT 2. Dementia, chronic, present on admission -patient has a history of a intercerebral bleed in 2018 likely contributing to her current cognitive status -continue home dose of donepezil 10 mg p.o. daily and melatonin 3 mg HS 3. Essential hypertension, chronic, present on admission -continue home dose of lisinopril 20 mg p.o. daily 4. Presumed chronic constipation -continue home doses of polyethylene glycol 8.5 g p.o. daily and senna 8.6 mg p.o. b.i.d. Consults: Orthopedic surgery Dispo: Anticipate discharge to care home DVT prophylaxis: Enoxaparin postop Code Status: DNR/DNI as discussed with [id number], surrogate Quality VTE Deep Vein Thrombosis/Pulmonary Embolism Present on Admission: No
--- NOTE | 2019-10-18 15:30 | PT.IPTN ---
Current Diagnoses Unspecified fracture of left femur, initial encounter for closed fracture (10/16/19) Surgery Performed Operation Date: 10/17/19 13:30 Actual Procedures p ORIF Hip DHS(Left) - Masood Castano MD Physical Therapy Treatment Note M2 PT-IP Current Condition Start: 10/18/19 08:21 Freq: NEEDED Status: Active Protocol: Document 10/18/19 12:32 HH (Rec: 10/18/19 13:04 [id number]) Physical Therapy Current Condition Current Condition Evaluation Date 10/18/19 Treatment Diagnosis L hip ORIF, difficulty in walking, fall risk Onset Date 10/17/19 Weight Bearing Status Weight Bearing Status Weight Bear as Tolerated M3 PT-IP Subjective Start: 10/18/19 08:21 Freq: NEEDED Status: Active Protocol: Document 10/18/19 15:04 HH (Rec: 10/18/19 15:30 [id number]) Subjective Physical Therapy Visit Type Type Treatment Note Visit Start Time 13:30 Visit Stop Time 13:52 Total Visit Minutes 22 Notes RN and SENIOR ECONOMIST assisted in this session Number of LENS AND FRAMES PRESCRIPTION CLERK Visits 0 Physical Therapy Visit Comments Patient Comments I dont remember you Therapy Pain Assessment Pain When Pain Assessed During Mobility Pain Present Pain Present Pain Reported Location L hip Intensity 8 Scale Used Dixon-Jimenes (Faces) Description Acute Pain Behaviors Calling Out,Crying,Facial Grimacing,Guarding,Holding Area,Moaning Pain Management Techniques Apply Cold,Timing of Activity with Medications M4 PT-IP Mobility and Gait Start: 10/18/19 08:21 Freq: NEEDED Status: Active Protocol: Document 10/18/19 15:04 (Rec: 10/18/19 15:30 [id number]) PT-Bed Mobility Assessment Rolling Type of Rolling Bilateral Level of Assist Moderate Assistance,1 Person Assistance Sit to Supine Sit to Supine Maximum Assistance,2 Person Assistance Scooting Scooting to Edge of Bed Maximum Assistance PT-Transfer Assessment Sit to and From Stand Sit to and from Stand Maximum Assistance,2 Person Assistance,Use of Upper Extremities Equipment Transfer Assistive Device Gait Belt,Front Wheeled Walker Orthotic/Prosthetic Devices or Brace: No Transfers Transfer Destination Bed,Chair Transfer Technique Squat Pivot Transfer Ability Level of Assist Maximum Assistance,2 Person Assistance,Use of Upper Extremities Comments Mobility Comments Pt was in chair sleeping upon PT arrival. Pt remained very confused and did not recognize this PT from am session. Pt called out for pain continuously when this PT was removing her supporting pillows. RN and SENIOR ECONOMIST both came in to assist. Instructed pt to scoot forward but she was unable to complete. Needed max A to scoot forward, then 2 P max A to stand up with FWW. Pt was crying and she was not able to stand upright because of her significant trunk forward lean with knee fully extended. Pt kept calling out for It hurts so much! I cant do this. This PT and SENIOR ECONOMIST attempted to assist in lateral stepping/ scooping but pt was not attentive and anxious. RN Neeta then repositioned pt's bed closer and this PT and SENIOR ECONOMIST total assisted her to squat pivot towards L side and sat down in bed. Pt then required 2P max A for sit to supine. RN and SENIOR ECONOMIST then tilted her bed sideways to change bed pad while pt needed tactile cues and TERRITORY ACCOUNT MANAGER to roll. She rested in bed comfortably and call light placed within reach. Gait Assessment Comments Gait Comments unable to amb Stair Climbing Assessment Comments Stair Climbing Comments unable to assess PT-Balance Assessment Sitting Balance and Reactions Static Sitting Balance Ability Good Dynamic Sitting Balance Ability Fair Standing Balance and Reactions Static Standing Balance Ability Poor Dynamic Standing Balance Ability Poor Device Used FWW M5 PT-IP Objective Assessments Start: 10/18/19 08:21 Freq: NEEDED Status: Active Protocol: Document 10/18/19 12:32 (Rec: 10/18/19 13:04 [id number]) Orientation Orientation/Cognition Level of Alertness Confusional State Orientation Name,Situation Language Function Ability No Deficits Noted,Hard of Hearing Safety Awareness Decreased Safety Awareness Memory Description Short Term Impaired,Fdc Impaired Gross Range of Motion Upper Extremity ROM Assessment Within Functional Limits Lower Extremity ROM Assessment Left Impaired Impairments significant pain noted with minimal movements Strength Upper Extremity Strength Assessment Within Functional Limits Lower Extremity Strength Assessment Left Impaired Hip 2/5 Knee 3/5 Comments Strength Comments significant pain noted with minimal movements on L hip M6 PT-IP Treatment Start: 10/18/19 08:21 Freq: NEEDED Status: Active Protocol: Document 10/18/19 12:32 (Rec: 10/18/19 13:04 [id number]) Physical Therapy Treatment Education Education Provided Weight Bearing Status,Safety M7 PT-IP Assessment and Plan Start: 10/18/19 08:21 Freq: NEEDED Status: Active Protocol: Document 10/18/19 15:04 (Rec: 10/18/19 15:30 [id number]) PT Summary Assessment and Plan Potential Rehabilitation Potential Fair Status of Condition at Evaluation Evolving Summary Impairments Pain,ROM,Strength,Balance, Cognition,Bed Mobility, Transfers,Gait,Activity Tolerance Progress Towards Goals Slow Progress due to Pain,Slow Progress due to Medical Issues,Slow Progress due to Activity Tolerance,Slow Progress - Other Assessment Summary Pt did worse than AM session mostly because of her pain and very poor cognition. Pt was max A x2-3 p for squat pivot transfer since she was calling out for pain during mobility and needed constant reassurance. In my professional opinion, pain and her cognition are primary limiting factors to participate rehab. Will attempt PT again tomorrow morning and coordinate timing of medications. D/t her extensive assistanced needed for basic care, SNF is still the ideal option upon DC updated social hx: SW called pt's [facility] ([phone] H, c) and confirmed that pt was unsafe for remaining home and they helped move pt into Assisted Living and they also live in [place]. Pt's spouse still remains at home but is showing signs of dementia himself and not adequately caring for himself and therefore DIL goes daily to check on pt's spouse. Goals Bed Mobility Goal Minimal Assistance Transfer Goal Minimal Assistance,Front Wheeled Walker Gait Goal Minimal Assistance,Front Wheel Walker Gait Distance 10 Days to Meet Goals 5 Frequency of Treatment Frequency Of Treatment Twice a Day Treatment Plan Physical Therapy Treatment Plan Bed Mobility Training,Transfer Training,Gait Training, Therapeutic Exercise,Balance Retraining,Post Op Education, Discharge Planning,Hot or Cold Pack,Manual Therapy Other Recommendations and Next Treatment faciliate WB on LLE Focus mobility as cyn with FWW Recommendations To Nursing Amount of Assist Needed PT/OT Assist Only Discharge Recommendations PT Discharge Recommendations SNF Rehab Transportation Needs at Discharge Wheelchair/Cabulance,Stretcher /Ambulance
[2019-10-18] MEDS: MELATONIN 3 MG TABLET PO (20:16)
[2019-10-18] MEDS: DONEPEZIL 5 MG TABLET 10 MG PO (20:16)
[2019-10-18] MEDS: SODIUM CHLORIDE 0.9% FLUSH 10 ML IV (20:17)
[2019-10-19 00:14] VITALS: BP 129/67; PULSE 76; RESP 18; TEMP 36.9; O2SAT 95
--- NOTE | 2019-10-19 01:56 | PC.NURSE ---
Pt calm and restful this shift. Oriented to self only although she correctly states the name of our current president. Difficult to assess BLE sensation - pt states that hurts! you're hurting me when this RN touches her ankle and continues to state she is being hurt when not touching her. Pt settles quickly and then denies pain.
[2019-10-19] MEDS: HYDROCODONE/ACET 5/325 TABLET 1 TAB PO ×2 (05:43→20:27)
[2019-10-19 07:00] VITALS: BP 143/68; PULSE 62; RESP 15; TEMP 37.2; O2SAT 94
[2019-10-19] MEDS: ACETAMINOPHEN 325 MG TABLET 650 MG PO ×2 (08:53→20:27)
[2019-10-19] MEDS: DOCUSATE 100 MG CAPSULE PO ×2 (08:53→20:27)
[2019-10-19] MEDS: ENOXAPARIN 40 MG/0.4 ML SYRINGE SUBCUT (08:53)
[2019-10-19] MEDS: SODIUM CHLORIDE 0.9% FLUSH 10 ML IV ×2 (08:54→20:28)
[2019-10-19] MEDS: IPRATROPIUM HFA 1 PUFF INH (09:41)
[2019-10-19 09:42] VITALS: PULSE 74; RESP 16; O2SAT 94
--- NOTE | 2019-10-19 10:35 | PC.NURSE ---
Addendum entered by Neeta Nicole R.N. 10/19/19 14:12: Patients childs catheter taken out and patient had 325cc of yellow urine out. She is sitting up in the chair and is a pivot transfer. Patient does not want her dressing to her feet messed with. Original Note: Patient is confused, but aware of some of the things that she is doing. She will cry out and yell when staff are in the room, saying please do not hurt me. Then she did reply please dont hit me, reassured her that staff is here to help assist her with care. Dressing to l.hip is bulky but cdi, given tylenol and patient took half of this and then spit the rest out. She has been more emotional today, then yesterday and more non compliant. As soon as we leave the room, patient does calm down. She is being appropriate now and resting. She does have a good appetite and ate all of her breakfast. She has dressing to both of her bilateral feet that are cdi, patient was screaming out when looking at her feet. Will attempt to try and change dressings a bit later when she is more calm.
--- NOTE | 2019-10-19 12:08 | PT.IPTN ---
Current Diagnoses Unspecified fracture of left femur, initial encounter for closed fracture (10/16/19) Surgery Performed Operation Date: 10/17/19 13:30 Actual Procedures p ORIF Hip DHS(Left) - Masood Castano MD Physical Therapy Treatment Note M2 PT-IP Current Condition Start: 10/18/19 08:21 Freq: NEEDED Status: Active Protocol: Document 10/18/19 12:32 HH (Rec: 10/18/19 13:04 HH [id number]) Physical Therapy Current Condition Current Condition Evaluation Date 10/18/19 Treatment Diagnosis L hip ORIF, difficulty in walking, fall risk Onset Date 10/17/19 Weight Bearing Status Weight Bearing Status Weight Bear as Tolerated M3 PT-IP Subjective Start: 10/18/19 08:21 Freq: NEEDED Status: Active Protocol: Document 10/19/19 11:47 KS (Rec: 10/19/19 13:43 KS [id number]) Subjective Physical Therapy Visit Type Type Treatment Note Visit Start Time 11:47 Visit Stop Time 12:08 Total Visit Minutes 21 Notes RN assisted this treatment. Therapy Pain Assessment Pain When Pain Assessed During Mobility Pain Present Pain Present Pain Reported Location L hip Scale Used no number given Description Acute Pain Behaviors Calling Out,Crying,Facial Grimacing,Guarding,Holding Area,Moaning Pain Management Techniques Distraction,Re-positioning, Timing of Activity with Medications M4 PT-IP Mobility and Gait Start: 10/18/19 08:21 Freq: NEEDED Status: Active Protocol: Document 10/19/19 11:47 KS (Rec: 10/19/19 13:43 KS [id number]) PT-Bed Mobility Assessment Supine to Sit Supine to Sit Maximum Assistance,2 Person Assistance,Head of Bed Elevated Scooting Scooting to Edge of Bed Maximum Assistance PT-Transfer Assessment Equipment Transfer Assistive Device Gait Belt Orthotic/Prosthetic Devices or Brace: No Transfers Transfer Destination Chair Transfer Technique Squat Pivot Transfer Ability Level of Assist Maximum Assistance,2 Person Assistance,Use of Upper Extremities Comments Mobility Comments Pt in bed upon arrival from therapy. Pt very confused and reporting high pain in hip. Pt began crying and was fearful of moving. RN present to provide assistance. Pt Max x2 stanley sup<>sit w/ HOB elevated. Max A x1 for scooting EOB, w/ trunk support provided by RN. Pt required Min A to maintain seated balance. She cried out in pain w/ every movement and needed frequent reassurance throughout treatment. Pt Max x1 for squat pivor transfer from bed to chair and Max x 2 for scooting back in chair/ repositioning. Pt left in chair w/ RN in room. Gait Assessment Comments Gait Comments unable to amb Stair Climbing Assessment Comments Stair Climbing Comments unable to assess PT-Balance Assessment Sitting Balance and Reactions Static Sitting Balance Ability Fair Dynamic Sitting Balance Ability Poor M5 PT-IP Objective Assessments Start: 10/18/19 08:21 Freq: NEEDED Status: Active Protocol: Document 10/18/19 12:32 HH (Rec: 10/18/19 13:04 HH [id number]) Orientation Orientation/Cognition Level of Alertness Confusional State Orientation Name,Situation Language Function Ability No Deficits Noted,Hard of Hearing Safety Awareness Decreased Safety Awareness Memory Description Short Term Impaired,Correctional Sergeant Impaired Gross Range of Motion Upper Extremity ROM Assessment Within Functional Limits Lower Extremity ROM Assessment Left Impaired Impairments significant pain noted with minimal movements Strength Upper Extremity Strength Assessment Within Functional Limits Lower Extremity Strength Assessment Left Impaired Hip 2/5 Knee 3/5 Comments Strength Comments significant pain noted with minimal movements on L hip M6 PT-IP Treatment Start: 10/18/19 08:21 Freq: NEEDED Status: Active Protocol: Document 10/19/19 11:47 KS (Rec: 10/19/19 13:43 KS [id number]) Physical Therapy Treatment Education Education Provided Weight Bearing Status,Safety M7 PT-IP Assessment and Plan Start: 10/18/19 08:21 Freq: NEEDED Status: Active Protocol: Document 10/19/19 11:47 KS (Rec: 10/19/19 13:43 KS [id number]) PT Summary Assessment and Plan Potential Rehabilitation Potential Fair Status of Condition at Evaluation Evolving Summary Impairments Pain,ROM,Strength,Balance, Cognition,Bed Mobility, Transfers,Gait,Activity Tolerance Progress Towards Goals Slow Progress due to Pain,Slow Progress due to Medical Issues,Slow Progress due to Activity Tolerance,Slow Progress - Other Assessment Summary Pt still requiring Max x2 for mobility, Min A for sitting balance, Max x1 for squat pivot. Pt is confused, fearful of moving, reports high pain, and cries out w/ movement. She benefits slightly from frequent reassurance. Only able to complete 4 min sitting balance w/ Min A EOB and squat pivot transfer to chair Max x1. Pt continues to be limited by pain and cognition and will require SNF to improve functional mobility and strength. Goals Bed Mobility Goal Minimal Assistance Transfer Goal Minimal Assistance,Front Wheeled Walker Gait Goal Minimal Assistance,Front Wheel Walker Gait Distance 10 Days to Meet Goals 5 Frequency of Treatment Frequency Of Treatment Twice a Day Treatment Plan Physical Therapy Treatment Plan Bed Mobility Training,Transfer Training,Gait Training, Therapeutic Exercise,Balance Retraining,Post Op Education, Discharge Planning,Hot or Cold Pack,Manual Therapy Other Recommendations and Next Treatment faciliate WB on LLE Focus mobility as cyn with FWW Recommendations To Nursing Amount of Assist Needed 2 Person Assist Discharge Recommendations PT Discharge Recommendations SNF Rehab Transportation Needs at Discharge Wheelchair/Cabulance,Stretcher /Ambulance
--- NOTE | 2019-10-19 14:39 | PT.IPTN ---
Current Diagnoses Unspecified fracture of left femur, initial encounter for closed fracture (10/16/19) Surgery Performed Operation Date: 10/17/19 13:30 Actual Procedures p ORIF Hip DHS(Left) - Masood Castano MD Physical Therapy Treatment Note M2 PT-IP Current Condition Start: 10/18/19 08:21 Freq: NEEDED Status: Active Protocol: Document 10/18/19 12:32 HH (Rec: 10/18/19 13:04 [id number]) Physical Therapy Current Condition Current Condition Evaluation Date 10/18/19 Treatment Diagnosis L hip ORIF, difficulty in walking, fall risk Onset Date 10/17/19 Weight Bearing Status Weight Bearing Status Weight Bear as Tolerated M3 PT-IP Subjective Start: 10/18/19 08:21 Freq: NEEDED Status: Active Protocol: Document 10/19/19 14:16 KS (Rec: 10/19/19 15:00 KS [id number]) Subjective Physical Therapy Visit Type Type Treatment Note Visit Start Time 14:16 Visit Stop Time 14:39 Total Visit Minutes 23 Notes BORDEREAU CLERK assisted this treatment. Physical Therapy Visit Comments Patient Comments I dont remember you Therapy Pain Assessment Pain When Pain Assessed During Mobility Pain Present Pain Present Pain Reported Location L hip Scale Used no number given Description Acute Pain Behaviors Calling Out,Crying,Facial Grimacing,Guarding,Holding Area,Moaning Pain Management Techniques Distraction,Re-positioning, Timing of Activity with Medications M4 PT-IP Mobility and Gait Start: 10/18/19 08:21 Freq: NEEDED Status: Active Protocol: Document 10/19/19 14:16 KS (Rec: 10/19/19 15:00 KS [id number]) PT-Bed Mobility Assessment Rolling Type of Rolling Bilateral Level of Assist Maximal Assistance,1 Person Assistance Sit to Supine Sit to Supine Maximum Assistance,2 Person Assistance,Head of Bed Elevated Scooting Scooting to Edge of Bed Maximum Assistance PT-Transfer Assessment Equipment Transfer Assistive Device Gait Belt Orthotic/Prosthetic Devices or Brace: No Transfers Transfer Destination Bed Transfer Technique Squat Pivot Transfer Ability Level of Assist Maximum Assistance,2 Person Assistance,Use of Upper Extremities Comments Mobility Comments Pt was in chair upon arrival from therapy and again very confused and fearful. Pt Max A for scooting to edge of chair . Pt continues to call out in pain w/ every movement. Pt Max A x2 for squat pivot from chair to bed as well as Max A x2 for sit<>sup and repositioning in bed. Pt then rolled onto each side w/ Max A and bed tilt for application of brief. Pt left in bed w/ all needs in reach, SCDs on, and bilat heels floated. Gait Assessment Comments Gait Comments unable to amb Stair Climbing Assessment Comments Stair Climbing Comments unable to assess PT-Balance Assessment Sitting Balance and Reactions Static Sitting Balance Ability Fair Dynamic Sitting Balance Ability Poor M5 PT-IP Objective Assessments Start: 10/18/19 08:21 Freq: NEEDED Status: Active Protocol: Document 10/18/19 12:32 HH (Rec: 10/18/19 13:04 HH [id number]) Orientation Orientation/Cognition Level of Alertness Confusional State Orientation Name,Situation Language Function Ability No Deficits Noted,Hard of Hearing Safety Awareness Decreased Safety Awareness Memory Description Short Term Impaired,Assisted Impaired Gross Range of Motion Upper Extremity ROM Assessment Within Functional Limits Lower Extremity ROM Assessment Left Impaired Impairments significant pain noted with minimal movements Strength Upper Extremity Strength Assessment Within Functional Limits Lower Extremity Strength Assessment Left Impaired Hip 2/5 Knee 3/5 Comments Strength Comments significant pain noted with minimal movements on L hip M6 PT-IP Treatment Start: 10/18/19 08:21 Freq: NEEDED Status: Active Protocol: Document 10/19/19 14:16 KS (Rec: 10/19/19 15:00 KS [id number]) Physical Therapy Treatment Education Education Provided Weight Bearing Status,Safety M7 PT-IP Assessment and Plan Start: 10/18/19 08:21 Freq: NEEDED Status: Active Protocol: Document 10/19/19 14:16 KS (Rec: 10/19/19 15:00 KS [id number]) PT Summary Assessment and Plan Potential Rehabilitation Potential Fair Status of Condition at Evaluation Evolving Summary Impairments Pain,ROM,Strength,Balance, Cognition,Bed Mobility, Transfers,Gait,Activity Tolerance Progress Towards Goals Slow Progress due to Pain,Slow Progress due to Medical Issues,Slow Progress due to Activity Tolerance,Slow Progress - Other Assessment Summary Pt continues to require Max A x2 for bed mobility and transfers. Pt cries out in pain w/ movement and expresses fear frequently. Pt seemed less alert and oriented in PM treatment and required constant reassurance and cues. Completed squat pivot from chair to bed, repositioning in bed, and application of brief all Max A x2. Pt will require SNF to improve functional mobility. Goals Bed Mobility Goal Minimal Assistance Transfer Goal Minimal Assistance,Front Wheeled Walker Gait Goal Minimal Assistance,Front Wheel Walker Gait Distance 10 Days to Meet Goals 5 Frequency of Treatment Frequency Of Treatment Twice a Day Treatment Plan Physical Therapy Treatment Plan Bed Mobility Training,Transfer Training,Gait Training, Therapeutic Exercise,Balance Retraining,Post Op Education, Discharge Planning,Hot or Cold Pack,Manual Therapy Other Recommendations and Next Treatment faciliate WB on LLE Focus mobility as cyn with FWW Recommendations To Nursing Amount of Assist Needed 2 Person Assist Discharge Recommendations PT Discharge Recommendations SNF Rehab Transportation Needs at Discharge Wheelchair/Cabulance,Stretcher /Ambulance
--- NOTE | 2019-10-19 14:57 | P.PN_ITS ---
Subjective Subjective Date Patient Seen: 10/19/19 Interval history: Patient is an 79-year-old female who is status post repair of left intertrochanteric fracture. She was quite tearful today working with physical therapy. With distraction she was able to get up with the walker. She reports ?pain all over. She is somewhat cautious with ambulation. Exam Vital Signs (past 8 hours): - 10/19/19 07:00 10/19/19 09:42 Temperature 99.0 F Pulse Rate 62 74 Respiratory Rate 15 16 Blood Pressure 143/68 H Pulse Oximetry 94 94 Oxygen Delivery Method Room Air Oxygen Flow Rate 0 Narrative Exam Narrative: Pleasant female slightly confused but in no obvious distress Lungs: Clear to auscultation Cardiac exam: Regular rate and rhythm normal S1-S2 Abdomen: Soft nontender nondistended Left hip: Dressing in place, no serosanguineous drainage noted, Objective Labs Result Diagrams: 10/18/19 05:19 10/17/19 04:48 Assessment & Plan Assessment & Plan narrative: Assessment & Plan narrative: Missy Mcmahon is admitted for treatment and management of a left intratrochanteric hip fracture. She underwent operative pinning procedure today with orthopedic surgery. Will plan for physical therapy tomorrow with plan for likely discharge to senior living. 1. Left intertrochanteric femur fracture, acute, present on admission -patient underwent surgical pinning of her left intertrochanteric hip fracture -continue scheduled Tylenol -PT/OT -anticipate discharge to senior living tomorrow 2. Dementia, chronic, present on admission -patient has a history of a intercerebral bleed in 2018 likely contributing to her current cognitive status -continue home dose of donepezil 10 mg p.o. daily and melatonin 3 mg HS -confused but no evidence of sundowning syndrome 3. Essential hypertension, chronic, present on admission -continue home dose of lisinopril 20 mg p.o. daily -blood pressure well controlled on current treatment 4. Presumed chronic constipation -continue home doses of polyethylene glycol 8.5 g p.o. daily and senna 8.6 mg p.o. b.i.d. Consults: Orthopedic surgery Dispo: Anticipate discharge to senior living DVT prophylaxis: Enoxaparin postop Code Status: DNR/DNI as discussed with [id number], surrogate Quality VTE Deep Vein Thrombosis/Pulmonary Embolism Present on Admission: No
[2019-10-19 19:40] VITALS: PULSE 78; RESP 14; O2SAT 94
[2019-10-19] MEDS: MELATONIN 3 MG TABLET PO (20:27)
[2019-10-19] MEDS: DONEPEZIL 5 MG TABLET 10 MG PO (20:29)
[2019-10-19 20:47] VITALS: PULSE 74; RESP 18; TEMP 37.2; O2SAT 94
[2019-10-20] MEDS: HYDROCODONE/ACET 5/325 TABLET 1 TAB PO ×3 (00:37→10:42)
[2019-10-20 00:45] VITALS: BP 123/70; PULSE 73; RESP 16; TEMP 36.8; O2SAT 98
--- NOTE | 2019-10-20 03:55 | PC.NURSE ---
Addendum entered by Shruthi Zaman R.N. 10/20/19 06:11: Pt refused pain meds at 0500 - clamping lips shut and yelling NO. Attempts to change position and brief were met w/pt crying out and screaming NO. Allyvn placed on coccyx - small amount of redness noted in this area. Original Note: Pt c/o of pain in L hip, forgets that she was given pain medication and states that she, can't explain how I feel. Ice applied to hip and pt repositioned w/good results for alleviating discomfort. Pt states, I think I'm having a hard time thinking. I think I'm not able to talk right and get my thoughts our right. Most of shift pt has been calm and quiet, only becoming agitated or anxious with repositioning.
[2019-10-20 08:10] VITALS: BP 131/78; PULSE 79; RESP 20; O2SAT 94
[2019-10-20] MEDS: DOCUSATE 100 MG CAPSULE PO ×2 (08:25→20:18)
[2019-10-20] MEDS: ACETAMINOPHEN 325 MG TABLET 650 MG PO ×3 (08:25→20:17)
[2019-10-20] MEDS: ENOXAPARIN 40 MG/0.4 ML SYRINGE SUBCUT (08:25)
[2019-10-20 09:12] VITALS: PULSE 90; RESP 17; O2SAT 94
--- NOTE | 2019-10-20 10:27 | PC.NURSE ---
0800- Patient is alert but confusedx1. She is aware that she lives at [facility] and knows that she is in the hospital. She cries out alot and has a lot of anxiety, her just called and she was crying to him on the phone, yesterday they had a better conversation and she was more calm.. Just called facility [facility] to get more information on patient ...She has only been at this facility for about 2 weeks and was living with her prior to this, she has a son named Kieran. States that she does not see him that much. Patient was also getting home health to come in and change her dressings to her bilateral heels as she has pressure ulcers to them. Patient does not want anybody messing with the dressings. She can be alert and oriented at times but mostly is anxious.
--- NOTE | 2019-10-20 11:25 | PT.IPTN ---
Current Diagnoses Unspecified fracture of left femur, initial encounter for closed fracture (10/16/19) Surgery Performed Operation Date: 10/17/19 13:30 Actual Procedures p ORIF Hip DHS(Left) - Masood Castano MD Physical Therapy Treatment Note M2 PT-IP Current Condition Start: 10/18/19 08:21 Freq: NEEDED Status: Active Protocol: Document 10/18/19 12:32 HH (Rec: 10/18/19 13:04 HH [id number]) Physical Therapy Current Condition Current Condition Evaluation Date 10/18/19 Treatment Diagnosis L hip ORIF, difficulty in walking, fall risk Onset Date 10/17/19 Weight Bearing Status Weight Bearing Status Weight Bear as Tolerated M3 PT-IP Subjective Start: 10/18/19 08:21 Freq: NEEDED Status: Active Protocol: Document 10/20/19 11:07 KS (Rec: 10/20/19 13:18 KS [id number]) Subjective Physical Therapy Visit Type Type Treatment Note Visit Start Time 11:07 Visit Stop Time 11:25 Total Visit Minutes 18 Notes LOAN ORIGINATOR assisted this treatment. Number of AREA OPERATIONS DIRECTOR Visits 3 Therapy Pain Assessment Pain When Pain Assessed During Mobility Pain Present Pain Present Pain Reported Location L hip Scale Used no number given Description Acute Pain Behaviors Calling Out,Crying,Facial Grimacing,Guarding,Holding Area,Moaning Pain Management Techniques Distraction,Re-positioning, Timing of Activity with Medications M4 PT-IP Mobility and Gait Start: 10/18/19 08:21 Freq: NEEDED Status: Active Protocol: Document 10/20/19 11:07 KS (Rec: 10/20/19 13:18 KS [id number]) PT-Bed Mobility Assessment Rolling Type of Rolling Bilateral Level of Assist Maximal Assistance,1 Person Assistance Supine to Sit Supine to Sit Maximum Assistance,2 Person Assistance,Head of Bed Elevated Scooting Scooting to Edge of Bed Maximum Assistance PT-Transfer Assessment Sit to and From Stand Sit to and from Stand Maximum Assistance,2 Person Assistance,Use of Upper Extremities Equipment Transfer Assistive Device Gait Belt Orthotic/Prosthetic Devices or Brace: No Transfers Transfer Destination Chair Transfer Technique Squat Pivot Transfer Ability Level of Assist Maximum Assistance,2 Person Assistance,Use of Upper Extremities Comments Mobility Comments Pt was in bed upon arrival from therapy and LOAN ORIGINATOR. Pt Max A for rolling to assess skin and brief. Pt continues to cry out in pain w/ movement. Pt Max A x2 for sup<>sit, Max A for scooting EOB, and Max A for squat pivot transfer to chair. Pt left in chair w/ all needs in reach and LOAN ORIGINATOR in room. Gait Assessment Comments Gait Comments unable to amb Stair Climbing Assessment Comments Stair Climbing Comments unable to assess PT-Balance Assessment Sitting Balance and Reactions Static Sitting Balance Ability Fair Dynamic Sitting Balance Ability Poor M5 PT-IP Objective Assessments Start: 10/18/19 08:21 Freq: NEEDED Status: Active Protocol: Document 10/18/19 12:32 HH (Rec: 10/18/19 13:04 HH [id number]) Orientation Orientation/Cognition Level of Alertness Confusional State Orientation Name,Situation Language Function Ability No Deficits Noted,Hard of Hearing Safety Awareness Decreased Safety Awareness Memory Description Short Term Impaired,Rn Paralegal Impaired Gross Range of Motion Upper Extremity ROM Assessment Within Functional Limits Lower Extremity ROM Assessment Left Impaired Impairments significant pain noted with minimal movements Strength Upper Extremity Strength Assessment Within Functional Limits Lower Extremity Strength Assessment Left Impaired Hip 2/5 Knee 3/5 Comments Strength Comments significant pain noted with minimal movements on L hip M6 PT-IP Treatment Start: 10/18/19 08:21 Freq: NEEDED Status: Active Protocol: Document 10/20/19 11:07 KS (Rec: 10/20/19 13:18 KS [id number]) Physical Therapy Treatment Education Education Provided Weight Bearing Status,Safety M7 PT-IP Assessment and Plan Start: 10/18/19 08:21 Freq: NEEDED Status: Active Protocol: Document 10/20/19 11:07 KS (Rec: 10/20/19 13:18 KS [id number]) PT Summary Assessment and Plan Potential Rehabilitation Potential Fair Status of Condition at Evaluation Evolving Summary Impairments Pain,ROM,Strength,Balance, Cognition,Bed Mobility, Transfers,Gait,Activity Tolerance Progress Towards Goals Slow Progress due to Pain,Slow Progress due to Medical Issues,Slow Progress due to Activity Tolerance,Slow Progress - Other Assessment Summary Pt continues to only be able to tolerate squat pivot transfer. Pt c/o high level of pain and is also fearful and confused. Pt required constant reassurance during mobility as well as cues for breathing. Max A x2 for sup<>sit, Max A for scooting to EOB, Max A for squat pivot transfer. Pt will require SNF to improve strength and functional mobility. Goals Bed Mobility Goal Minimal Assistance Transfer Goal Minimal Assistance,Front Wheeled Walker Gait Goal Minimal Assistance,Front Wheel Walker Gait Distance 10 Days to Meet Goals 5 Frequency of Treatment Frequency Of Treatment Twice a Day Treatment Plan Physical Therapy Treatment Plan Bed Mobility Training,Transfer Training,Gait Training, Therapeutic Exercise,Balance Retraining,Post Op Education, Discharge Planning,Hot or Cold Pack,Manual Therapy Other Recommendations and Next Treatment faciliate WB on LLE Focus mobility as cyn with FWW Recommendations To Nursing Amount of Assist Needed 2 Person Assist Discharge Recommendations PT Discharge Recommendations SNF Rehab Transportation Needs at Discharge Wheelchair/Cabulance,Stretcher /Ambulance
--- NOTE | 2019-10-20 14:17 | PT.IPTN ---
Current Diagnoses Unspecified fracture of left femur, initial encounter for closed fracture (10/16/19) Surgery Performed Operation Date: 10/17/19 13:30 Actual Procedures p ORIF Hip DHS(Left) - Masood Castano MD Physical Therapy Treatment Note M2 PT-IP Current Condition Start: 10/18/19 08:21 Freq: NEEDED Status: Active Protocol: Document 10/18/19 12:32 HH (Rec: 10/18/19 13:04 [id number]) Physical Therapy Current Condition Current Condition Evaluation Date 10/18/19 Treatment Diagnosis L hip ORIF, difficulty in walking, fall risk Onset Date 10/17/19 Weight Bearing Status Weight Bearing Status Weight Bear as Tolerated M3 PT-IP Subjective Start: 10/18/19 08:21 Freq: NEEDED Status: Active Protocol: Document 10/20/19 13:48 KS (Rec: 10/20/19 14:51 KS [id number]) Subjective Physical Therapy Visit Type Type Treatment Note Visit Start Time 13:48 Visit Stop Time 14:17 Total Visit Minutes 29 Number of MANUFACTURING MAINTENANCE MANAGER Visits 4 Therapy Pain Assessment Pain When Pain Assessed During Mobility Pain Present Pain Present Pain Reported Location L hip Scale Used no number given Description Acute Pain Behaviors Calling Out,Crying,Facial Grimacing,Guarding,Holding Area,Moaning Pain Management Techniques Distraction,Elevation,Re- positioning,Timing of Activity with Medications M4 PT-IP Mobility and Gait Start: 10/18/19 08:21 Freq: NEEDED Status: Active Protocol: Document 10/20/19 13:48 KS (Rec: 10/20/19 14:51 KS [id number]) PT-Bed Mobility Assessment Rolling Type of Rolling Bilateral Level of Assist Moderate Assistance,1 Person Assistance Sit to Supine Sit to Supine Maximum Assistance,2 Person Assistance,Head of Bed Elevated Scooting Scooting to Edge of Bed Maximum Assistance PT-Transfer Assessment Sit to and From Stand Sit to and from Stand Maximum Assistance,2 Person Assistance,Use of Upper Extremities Equipment Transfer Assistive Device Gait Belt Orthotic/Prosthetic Devices or Brace: No Transfers Transfer Destination Bed,Chair Transfer Technique Squat Pivot Transfer Ability Level of Assist Maximum Assistance,2 Person Assistance,Use of Upper Extremities Comments Mobility Comments Pt was in chair upon arrival from therapist and COMPRESSOR ENGINEER. Pt required motivation and reassurance to participate in therapy. Max A for scooting to edge of chair. Attempted stand pivot, but pt unable to fully stand w/ Max A x2 and c/ o pain and had to sit back down. Max A squat pivot from chair to bed. Max A x2 for sit <>sup and repositioning in bed . Pt then Mod A w/ bed tilt for bilat roll for brief change. Pt left in bed w/ SCDs on, all needs in reach, and COMPRESSOR ENGINEER present. Gait Assessment Comments Gait Comments unable to amb Stair Climbing Assessment Comments Stair Climbing Comments unable to assess PT-Balance Assessment Sitting Balance and Reactions Static Sitting Balance Ability Fair Dynamic Sitting Balance Ability Poor M5 PT-IP Objective Assessments Start: 10/18/19 08:21 Freq: NEEDED Status: Active Protocol: Document 10/18/19 12:32 HH (Rec: 10/18/19 13:04 HH [id number]) Orientation Orientation/Cognition Level of Alertness Confusional State Orientation Name,Situation Language Function Ability No Deficits Noted,Hard of Hearing Safety Awareness Decreased Safety Awareness Memory Description Short Term Impaired,Instructor Physical Impaired Gross Range of Motion Upper Extremity ROM Assessment Within Functional Limits Lower Extremity ROM Assessment Left Impaired Impairments significant pain noted with minimal movements Strength Upper Extremity Strength Assessment Within Functional Limits Lower Extremity Strength Assessment Left Impaired Hip 2/5 Knee 3/5 Comments Strength Comments significant pain noted with minimal movements on L hip M6 PT-IP Treatment Start: 10/18/19 08:21 Freq: NEEDED Status: Active Protocol: Document 10/20/19 13:48 KS (Rec: 10/20/19 14:51 KS [id number]) Physical Therapy Treatment Education Education Provided Weight Bearing Status,Safety M7 PT-IP Assessment and Plan Start: 10/18/19 08:21 Freq: NEEDED Status: Active Protocol: Document 10/20/19 13:48 KS (Rec: 10/20/19 14:51 KS [id number]) PT Summary Assessment and Plan Potential Rehabilitation Potential Fair Status of Condition at Evaluation Evolving Summary Impairments Pain,ROM,Strength,Balance, Cognition,Bed Mobility, Transfers,Gait,Activity Tolerance Progress Towards Goals Slow Progress due to Pain,Slow Progress due to Medical Issues,Slow Progress due to Activity Tolerance,Slow Progress - Other Assessment Summary Pt required Max A and cues for scooting to EOC. Attempted sit<>stand w/ FWW and Max x2, but pt c/o pain and was unable to fully stand. Completed squat pivot transfer from chair to bed Max A. Pt then required Max A x2 for sit<>sup and repositioning in bed. Pt did have improvement w/ tolerance and ability in bilat rolling, requiring Mod A this PM for change of brief. Pt benefits from clear instruction and reassurance throughout treatment. She will require SNF to improve functional mobility. Goals Bed Mobility Goal Minimal Assistance Transfer Goal Minimal Assistance,Front Wheeled Walker Gait Goal Minimal Assistance,Front Wheel Walker Gait Distance 10 Days to Meet Goals 5 Frequency of Treatment Frequency Of Treatment Twice a Day Treatment Plan Physical Therapy Treatment Plan Bed Mobility Training,Transfer Training,Gait Training, Therapeutic Exercise,Balance Retraining,Post Op Education, Discharge Planning,Hot or Cold Pack,Manual Therapy Other Recommendations and Next Treatment faciliate WB on LLE Focus mobility as cyn with FWW Recommendations To Nursing Amount of Assist Needed 2 Person Assist Discharge Recommendations PT Discharge Recommendations SNF Rehab Transportation Needs at Discharge Wheelchair/Cabulance,Stretcher /Ambulance
[2019-10-20 15:44] VITALS: BP 148/63; PULSE 85; RESP 15; TEMP 37.1; O2SAT 95
--- NOTE | 2019-10-20 15:46 | PM.PN.1 ---
Subjective Subjective Date Patient Seen: 10/20/19 Interval history: Patient continues to be emotionally labile. She also appears to have pain with minimal activity. She was able to eat breakfast and lunch without difficulty. While at rest she does not appear to be in any pain. She is continuing to be intermittently confused. Exam Vital Signs (past 8 hours): - 10/20/19 08:10 10/20/19 09:12 Pulse Rate 79 90 Respiratory Rate 20 17 Blood Pressure 131/78 Pulse Oximetry 94 94 Oxygen Delivery Method Room Air Oxygen Flow Rate 0 Narrative Exam Narrative: Elderly female at times tearful Lungs: Clear to auscultate Cardiac exam: Regular rate rhythm normal S1-S2 Abdomen: Soft nontender nondistended Left hip dressing in place, dressing is dry without exudate left leg internally rotated Objective Labs Result Diagrams: 10/18/19 05:19 10/17/19 04:48 Assessment & Plan Assessment & Plan narrative: Assessment & Plan narrative: Assessment & Plan narrative: Missy Mcmahon is admitted for treatment and management of a left intratrochanteric hip fracture. She underwent operative pinning procedure today with orthopedic surgery. Will plan for physical therapy tomorrow with plan for likely discharge to nursing home. 1. Left intertrochanteric femur fracture, acute, present on admission -patient underwent surgical pinning of her left intertrochanteric hip fracture -continue scheduled Tylenol -PT/OT -anticipate discharge to nursing home -patient was rejected at [facility] of [employer] -attempting to see if sound view well except her for continued rehabilitation 2. Dementia, chronic, present on admission -patient has a history of a intercerebral bleed in 2018 likely contributing to her current cognitive status -continue home dose of donepezil 10 mg p.o. daily and melatonin 3 mg HS -confused but no evidence of sundowning syndrome -she continues to have labile emotions will continue current medication 3. Essential hypertension, chronic, present on admission -continue home dose of lisinopril 20 mg p.o. daily -blood pressure well controlled on current treatment 4. Presumed chronic constipation -continue home doses of polyethylene glycol 8.5 g p.o. daily and senna 8.6 mg p.o. b.i.d. Consults: Orthopedic surgery Dispo: Anticipate discharge to nursing home DVT prophylaxis: Enoxaparin postop Code Status: DNR/DNI as discussed with [id number], surrogate Quality VTE Deep Vein Thrombosis/Pulmonary Embolism Present on Admission: No
[2019-10-20] MEDS: SODIUM CHLORIDE 0.9% FLUSH 10 ML IV (20:18)
[2019-10-20] MEDS: DONEPEZIL 5 MG TABLET 10 MG PO (20:18)
[2019-10-21] VITALS (7 sets, daily range): BP systolic 122–166; BP diastolic 62–99; PULSE 72–84; RESP 14–20; TEMP 36.6–37.4; O2SAT 93–96
[2019-10-21] MEDS: HYDROCODONE/ACET 5/325 TABLET 1 TAB PO ×3 (04:55→13:20)
--- NOTE | 2019-10-21 08:43 | P.PN_ITS ---
Subjective Subjective Date Patient Seen: 10/21/19 Time Patient Seen: 08:43 Interval history: Postop day 4 left DHS for left intertrochanteric hip fracture by Dr. Castano. Patient lying in bed. Emotionally labile. Not oriented to place. No appearance of pain at rest Exam Vital Signs (past 8 hours): Oxygen Delivery Method Room Air Oxygen Flow Rate 0 Narrative Exam Narrative: General exam. Patient lying in bed oriented to person but not place. Emotionally labile cries easily HEENT exam normocephalic atraumatic Respiratory unlabored on room air Heart regular rate and rhythm Lower extremities. SCDs are worn bilaterally. On the left thigh addressing is disheveled and displaced. No erythema around the incision. No swelling. Thigh is soft. Does not follow instructions or demonstrate ankle range of motion to to command this morning. New clean dressing replaced Objective Labs Result Diagrams: 10/18/19 05:19 10/17/19 04:48 Assessment & Plan Post-op Postoperative Procedures: Procedures Operation Date: 10/17/19 13:30 Actual Procedures Side Surgeon p ORIF Hip DHS Left Masood Castano MD postop day 4 left DHS for left intertrochanteric hip fracture. Awaiting on detention discharge. New clean dressing replaced today. Follow up outpatient with Dr. Castano at [facility] 2 weeks postoperatively for staple removal and x-rays. Weightbear as tolerated. Enoxaparin for DVT prophylaxis. Discharge per primary team Postoperative day: 4 Time Spent With Patient Time with patient: less than 15 minutes Quality VTE Deep Vein Thrombosis/Pulmonary Embolism Present on Admission: No
[2019-10-21] MEDS: ACETAMINOPHEN 325 MG TABLET 650 MG PO ×2 (09:02→13:21)
[2019-10-21] MEDS: polyethylene glycoL 3350 17 GM POWD.PACK PO (09:02)
[2019-10-21] MEDS: DOCUSATE 100 MG CAPSULE PO (09:03)
[2019-10-21] MEDS: ENOXAPARIN 40 MG/0.4 ML SYRINGE SUBCUT (09:03)
[2019-10-21] MEDS: SODIUM CHLORIDE 0.9% FLUSH 10 ML IV ×2 (09:04→20:45)
--- NOTE | 2019-10-21 10:16 | PM.PN.1 ---
Subjective Subjective Date Patient Seen: 10/21/19 Interval history: Patient continues to be tearful. She does not appear to be in pain at rest. She remains somewhat confused. Exam Vital Signs (past 8 hours): - 10/21/19 08:00 10/21/19 09:52 Temperature 97.8 F Pulse Rate 72 78 Respiratory Rate 20 18 Blood Pressure 142/78 H Pulse Oximetry 95 96 Oxygen Delivery Method Room Air Oxygen Flow Rate 0 Narrative Exam Narrative: Pleasant female at times intermittently tearful Lungs: Clear to auscultation Cardiac exam: Regular rate and rhythm normal S1-S2 Abdomen soft nontender Left hip: Jesse in place no exudates no erythema. Left foot is internally rotated Objective Labs Result Diagrams: 10/18/19 05:19 10/17/19 04:48 Assessment & Plan Assessment & Plan narrative: Impression 1. Status post surgical repair of a left intertrochanteric fracture most likely related to a traumatic fall -patient is making slow but steady progress related to physical therapy and occupational therapy. -will continue pain medication and therapies. -awaiting placement. She continues to require 2 person assist. 2. Dementia Continued done as a pro 3. Hypertension Continue lisinopril Plan discharge once arrangements can be made Quality VTE Deep Vein Thrombosis/Pulmonary Embolism Present on Admission: No
--- NOTE | 2019-10-21 11:45 | PT.IPTN ---
Current Diagnoses Unspecified fracture of left femur, initial encounter for closed fracture (10/16/19) Surgery Performed Operation Date: 10/17/19 13:30 Actual Procedures p ORIF Hip DHS(Left) - Masood Castano MD Physical Therapy Treatment Note M2 PT-IP Current Condition Start: 10/18/19 08:21 Freq: NEEDED Status: Active Protocol: Document 10/18/19 12:32 HH (Rec: 10/18/19 13:04 HH [id number]) Physical Therapy Current Condition Current Condition Evaluation Date 10/18/19 Treatment Diagnosis L hip ORIF, difficulty in walking, fall risk Onset Date 10/17/19 Weight Bearing Status Weight Bearing Status Weight Bear as Tolerated M3 PT-IP Subjective Start: 10/18/19 08:21 Freq: NEEDED Status: Active Protocol: Document 10/21/19 11:45 AB (Rec: 10/21/19 13:37 AB [id number]) Subjective Physical Therapy Visit Type Type Treatment Note Visit Start Time 11:45 Visit Stop Time 12:26 Total Visit Minutes 41 Number of SPRAY MAKER Visits 0 Therapy Pain Assessment Pain When Pain Assessed During Mobility Pain Present Pain Present Pain Reported Location L hip Scale Used pain scale not stated Pain Behaviors Calling Out,Crying,Guarding, Wincing Pain Management Techniques Distraction,Re-positioning, Timing of Activity with Medications M4 PT-IP Mobility and Gait Start: 10/18/19 08:21 Freq: NEEDED Status: Active Protocol: Document 10/21/19 11:45 AB (Rec: 10/21/19 13:37 AB [id number]) PT-Bed Mobility Assessment Supine to Sit Supine to Sit Maximum Assistance,Total Assistance,2 Person Assistance ,Head of Bed Elevated,Bedrails Scooting Scooting to Edge of Bed Dependent PT-Transfer Assessment Sit to and From Stand Sit to and from Stand Maximum Assistance,2 Person Assistance,Use of Upper Extremities Equipment Transfer Assistive Device Front Wheeled Walker Orthotic/Prosthetic Devices or Brace: No Transfers Transfer Destination Chair Transfer Technique Stand Pivot Transfer Ability Level of Assist Maximum Assistance,2 Person Assistance,Use of Upper Extremities Comments Mobility Comments pt is very confused and has difficulty following directions. completed supine to sit max A x 2 to total A x 2. pt was able to sit on EOB max A with increase posterior trunk lean. instructed to balance and lean forwards and requries max A for positioning and was able to sit up with min A. completed sit to stand max A x 2 and max cues. pt screaming with c/o pain but able to stand with max A x2 and distracted to stand upright. completed stand pivot transfer using FWW max A x 2 and max cues. positioned pt on chair. call light and table placed within reach. Left pt with OT. M5 PT-IP Objective Assessments Start: 10/18/19 08:21 Freq: NEEDED Status: Active Protocol: Document 10/18/19 12:32 HH (Rec: 10/18/19 13:04 [id number]) Orientation Orientation/Cognition Level of Alertness Confusional State Orientation Name,Situation Language Function Ability No Deficits Noted,Hard of Hearing Safety Awareness Decreased Safety Awareness Memory Description Short Term Impaired,Office Services Clerk Impaired Gross Range of Motion Upper Extremity ROM Assessment Within Functional Limits Lower Extremity ROM Assessment Left Impaired Impairments significant pain noted with minimal movements Strength Upper Extremity Strength Assessment Within Functional Limits Lower Extremity Strength Assessment Left Impaired Hip 2/5 Knee 3/5 Comments Strength Comments significant pain noted with minimal movements on L hip M6 PT-IP Treatment Start: 10/18/19 08:21 Freq: NEEDED Status: Active Protocol: Document 10/21/19 11:45 AB (Rec: 10/21/19 13:37 AB [id number]) Physical Therapy Treatment Education Education Provided Safety Other Treatments Other Treatment Performed PROM R hip/knee conducted prior to mobilization M7 PT-IP Assessment and Plan Start: 10/18/19 08:21 Freq: NEEDED Status: Active Protocol: Document 10/21/19 11:45 AB (Rec: 10/21/19 13:37 [id number]) PT Summary Assessment and Plan Potential Rehabilitation Potential Fair Summary Impairments Pain,ROM,Strength,Balance, Coordination,Sensation,Tone, Cognition,Bed Mobility, Transfers,Gait,Activity Tolerance Progress Towards Goals Slow Progress due to Pain,Slow Progress due to Medical Issues,Slow Progress due to Activity Tolerance Assessment Summary pt requiring max A x 2 to total A x2 and max cues with all tasks. pt with difficulty following directions affecting mobility. pt will require SNF rehab to improve strength and mobility. Goals Bed Mobility Goal Minimal Assistance Transfer Goal Minimal Assistance,Front Wheeled Walker Gait Goal Minimal Assistance,Front Wheel Walker Gait Distance 50 Days to Meet Goals 5 Frequency of Treatment Frequency Of Treatment Twice a Day Treatment Plan Physical Therapy Treatment Plan Bed Mobility Training,Transfer Training,Gait Training, Therapeutic Exercise,Balance Retraining,Post Op Education, Discharge Planning,Hot or Cold Pack,Manual Therapy Other Recommendations and Next Treatment transfers, ambulation Focus Recommendations To Nursing Amount of Assist Needed Mechanical Lift Discharge Recommendations PT Discharge Recommendations SNF Rehab Transportation Needs at Discharge Wheelchair/Cabulance,Stretcher /Ambulance
--- NOTE | 2019-10-21 12:29 | OT.IP.EVAL ---
Current Diagnoses Unspecified fracture of left femur, initial encounter for closed fracture (10/16/19) Surgery Performed Operation Date: 10/17/19 13:30 Actual Procedures p ORIF Hip DHS(Left) - Masood Castano MD Past Medical History (Last Reviewed 10/17/19 @ 14:08 by Masood Castano MD) Anxiety (Acute) COPD (chronic obstructive pulmonary disease) (Acute) Dementia (Acute) Headache (Acute) HTN (hypertension) (Acute) Hyperlipidemia (Acute) Osteoporosis (Acute) Parkinsons disease (Acute) Peripheral neuropathy (Acute) Pressure ulcer (Acute) TIA (transient ischemic attack) (Acute) Tremor (Acute) UTI (urinary tract infection) (Acute) Occupational Therapy Inpatient Evaluation/Re-Eval M1 PT/OT-IP Prior Functional Status Start: 10/18/19 08:21 Freq: NEEDED Status: Active Protocol: Document 10/21/19 12:50 CGR (Rec: 10/21/19 13:08 CGR [email or web address]) Medical Review Prior Functional Status Medical History Reviewed Yes Diet/Fluid Consistency Regular Communication Per nursing staff from [facility], pt is demented with confusion and poor short term memory at baseline. Pt has significant mood swing and very anxious in general. She tends to cry easily when she gets frustrated or anxious. Requires soft spoken tone to instruct pt. Mobility and Gait Per nursing staff from [facility], pt was able to amb around with FWW within the facility without supervision. Able to get OOB and transfer independently Activities of Daily Living and IADL's pt needed help to reach down and reaching behind her band during showering. She usually uses shower chair and nursing staff assist as needed. Facility provides meal and transport. Prior Functional Level (Other details) Information obtained from P.T. note. Social History Household Members none Living Arrangements Assisted Living Number of Floors (Floors) One Floor Home Environment High Toilet,Walk in Shower Home Equipment Front Wheel Walker,Raised Toilet Seat w/Armrests,Hand Held Shower,Grab Bars Near Toilet,Grab Bars In Shower Employment Status Retired Additional Social History Comment Pt has severe dementia. M2 OT-IP Current Condition Start: 10/21/19 12:49 Freq: Status: Active Protocol: Document 10/21/19 12:50 CGR (Rec: 10/21/19 13:08 CGR [email or web address]) Occupational Therapy Current Condition Current Condition Evaluation Date 10/21/19 Treatment Diagnosis GLF now s/p 10/16 ORIF Diagnosis Onset Date 10/16/19 Weight Bearing Status Weight Bearing Status Weight Bear as Tolerated M3 OT- IP Subjective and Pain Start: 10/21/19 12:49 Freq: Status: Active Protocol: Document 10/21/19 12:50 CGR (Rec: 10/21/19 13:08 CGR [email or web address]) OT- Subjective Occupational Therapy Visit Type Type Initial Evaluation Visit Start Time 12:05 Visit Stop Time 12:29 Total Visit Minutes 24 Notes Partial co-treat with P.T. OT Pain Assessment Pain When Pain Assessed During Mobility Pain Present Pain Present Pain Reported Location L hip Scale Used Pt is unable to rate Pain Behaviors Calling Out,Crying,Facial Grimacing,Guarding,Holding Area Management Techniques Distraction,Modification of Treatment,Re-positioning, Timing of Activity with Medications M4 OT- IP ADL's Start: 10/21/19 12:49 Freq: Status: Active Protocol: Document 10/21/19 12:50 CGR (Rec: 10/21/19 13:08 CGR [email or web address]) OT [id number] General Evaluation Self-Feeding Ability Standby Assistance Comments OT Self-Feeding Comments Pt needs assist with set up and initiation but then pt is able to get food onto fork and get food to mouth. OT ADL-Grooming Comments OT Grooming Comments Not performed OT ADL-Oral Care Comments Oral Care Comments Not performed OT ADL-Dressing General Eval Lower Body Dressing Ability Total Assistance Areas Needing Assistance Socks OT ADL-Toileting Comments OT Toileting Comments Not performed OT ADL-Bathing Comments OT Bathing Comments Not performed, pt is not appropriate for shower at this time d/t mobility and cognition M5 OT- IP IADL's Start: 10/21/19 12:49 Freq: Status: Active Protocol: Document 10/21/19 12:50 CGR (Rec: 10/21/19 13:08 CGR [email or web address]) OT-Instrumental Activities of Daily Living Deficits IADL Deficits Identified Deficits Home Safety Awareness Awareness of Need for Assistance at Home Decreased Awareness Ability to Problem Solve Emergency Unable to Problem Solve Situations Medication Management Medication Management Caregiver Administers Money Management Money Management Caregiver Provides Assistance Meal Preparation Meal Preparation Caregiver Provides Assist Bracelet Former Bracelet Former Caregiver Provides Assist Driving Driving Comments Pt does not drive. M6 OT- IP Functional Cognition Start: 10/21/19 12:49 Freq: Status: Active Protocol: Document 10/21/19 12:50 CGR (Rec: 10/21/19 13:08 CGR [email or web address]) Cognitive Factors Limiting Selfcare Function Cognitive Ability Level of Alertness Alert,Confusional State Patient Orientation Name Attention Span Ability Unable to Focus,Unable to Sustain Attention Cognitive Comments Cognitive Assessment Comments Pt is unable to follow commands consistently. Pt parrots most commands and is able to follow ~25% of the time. Pt becomes agitated with movement but was able to transfer to the chair on this date. Gentle tactile cues appear more helpful than verbal cues. OT- Vision and Hearing OT- Hearing Assessment OT- Hearing Assessment WFL OT- Vision Assessment Visual Acuity WFL Visual Attentiveness WFL Occular Pursuits WFL M7 OT- IP Mobility and Balance Start: 10/21/19 12:49 Freq: Status: Active Protocol: Document 10/21/19 12:50 CGR (Rec: 10/21/19 13:08 CGR [email or web address]) OT- Bed Mobility Assessment Supine to Sit Supine to Sit Assist Maximum Assistance,Total Assistance,2 Person Assistance Scooting Scooting to Edge of Bed Total Assistance,2 Person Assistance OT-Transfer Assessment Sit to and From Stand Sit to and from Stand Maximum Assistance,2 Person Assistance Transfers Transfer Ability Maximum Assistance,2 Person Assistance Technique Transfer Destination Bed,Chair Transfer Technique Stand Step Pivot Devices Transfer Assistive Devices Gait Belt,Front Wheeled Walker Comments Mobility Comments Pt was able to transfer to the chair on this date with extra time and max cuing. Pt appears to do better with gentle tactile cueing than with verbal cueing. OT- Balance Assessment Sitting Balance and Reactions Static Sitting Balance Ability Fair Dynamic Sitting Balance Ability Poor Comments Other Balance Tests/Deviations/Treatment Pt needed rocking to obtain : good sitting balance once seated EOB. M8 OT- IP Objective Assessments Start: 10/21/19 12:49 Freq: Status: Active Protocol: Document 10/21/19 12:50 CGR (Rec: 10/21/19 13:08 CGR [email or web address]) OT Gross Range of Motion Upper Extremity Range of Motion Assessment Within Functional Limits OT Strength Upper Extremity Strength Assessment Within Functional Limits Comments Strength Comments Pt had difficulty follow commands for MMT but appears to be ~4/5 throughout. OT- Coordination Assessment Comments Coordination Comments Unable to fully test coordination but able to use fork and get fork to mouth without difficulty. OT-Muscle Tone Assessment Muscle Tone WNL Yes OT Sensation Assessment Edema Edema Absent M9 OT- IP Assessment and Plan Start: 10/21/19 12:49 Freq: Status: Active Protocol: Document 10/21/19 12:50 CGR (Rec: 10/21/19 13:08 CGR [email or web address]) OT Summary Assessment and Plan Potential Rehabilitation Potential Good Analytic Complexity at Evaluation Moderate Summary OT Impairments Pain,Strength,Balance, Functional Cognition, Functional Mobility,Grooming, Dressing,Toileting,Bathing, Toilet Transfers,Shower Transfers,Activity Tolerance Progress Towards Goals Slow Progress due to Cognition Assessment Summary Pt presents as a moderate complexity evaluation s/p fall with hip fx who underwent ORIF. Pt has severe dementia at baseline that is impacting her ability to participate fully in therapy, however, pt is able to follow commands with extra time and a gentle approach. Pt will need SNF upon discharge. Goals Dressing Goal Minimal Assistance Toileting Goal Independent Bathing Goal Minimal Assistance Toilet Transfer Goal Standby Assistance Shower Transfer Goal Minimal Assistance Days to Meet Goals 20 Frequency of Treatment Frequency Of Treatment Once a Day Treatment Plan OT Treatment Plan ADL Training,Functional Cognition Training,Functional Mobility,Patient/Family Education,Discharge Planning Other Treatment Recommendations and Next ADLs seated. Treatment Focus Discharge Recommendations OT Discharge Recommendations SNF Rehab Home Equipment Needs TBD Transportation Needs at Discharge Private Vehicle
[2019-10-21] MEDS: BISACODYL 5 MG TABLET 10 MG PO (14:30)
[2019-10-21] MEDS: SENNOSIDES 8.6 MG TABLET 17.2 MG PO (14:30)
--- NOTE | 2019-10-21 14:41 | PT.IPTN ---
Current Diagnoses Unspecified fracture of left femur, initial encounter for closed fracture (10/16/19) Surgery Performed Operation Date: 10/17/19 13:30 Actual Procedures p ORIF Hip DHS(Left) - Masood Castano MD Physical Therapy Treatment Note M2 PT-IP Current Condition Start: 10/18/19 08:21 Freq: NEEDED Status: Active Protocol: Document 10/18/19 12:32 HH (Rec: 10/18/19 13:04 [id number]) Physical Therapy Current Condition Current Condition Evaluation Date 10/18/19 Treatment Diagnosis L hip ORIF, difficulty in walking, fall risk Onset Date 10/17/19 Weight Bearing Status Weight Bearing Status Weight Bear as Tolerated M3 PT-IP Subjective Start: 10/18/19 08:21 Freq: NEEDED Status: Active Protocol: Document 10/21/19 14:41 AB (Rec: 10/21/19 16:00 AB [id number]) Subjective Physical Therapy Visit Type Type Treatment Note Visit Start Time 14:41 Visit Stop Time 15:35 Total Visit Minutes 54 Number of QA DEVELOPER Visits 0 Therapy Pain Assessment Pain When Pain Assessed During Mobility Pain Present Pain Present Pain Reported Location L hip Scale Used pain scale not stated M4 PT-IP Mobility and Gait Start: 10/18/19 08:21 Freq: NEEDED Status: Active Protocol: Document 10/21/19 14:41 AB (Rec: 10/21/19 16:00 AB [id number]) PT-Bed Mobility Assessment Supine to Sit Supine to Sit Maximum Assistance,2 Person Assistance Sit to Supine Sit to Supine Maximum Assistance,Total Assistance,2 Person Assistance Scooting Scooting to Edge of Bed Maximum Assistance PT-Transfer Assessment Sit to and From Stand Sit to and from Stand Maximum Assistance,2 Person Assistance,Use of Upper Extremities Equipment Transfer Assistive Device Gait Belt,Front Wheeled Walker Orthotic/Prosthetic Devices or Brace: No Transfers Transfer Destination Bedside Commode Transfer Technique Stand Pivot Transfer Ability Level of Assist Maximum Assistance,2 Person Assistance,Use of Upper Extremities Comments Mobility Comments completed supine to sit max A x 2 and max cues. pt continues to have confusion and requires redirection during mobility. completed sit to stand max A x 2 and cues for upright posture. pt with fear of falling and with increase posterior trunk lean during standing. completed step pivot transfer to bedside commode max A x 2 and max cues. completed sit to stand from bedside commode max A x 2 and max cues and was able to maintain standing max A x 2 while NAC assisted with hygiene care. completed stand pivot transfer to bed using FWW max A x 2 and cues. pt educated on standing upright and completed sit to stand from EOB and still requires max A x 2 but was able to stand more upright with less posterior trunk leaning and tolerated ~ 20 sec of standing using FWW for support. assisted back to bed . completed sit to supine max A x 2 and max cues. positioned pt in bed. call light and table placed within reach. M5 PT-IP Objective Assessments Start: 10/18/19 08:21 Freq: NEEDED Status: Active Protocol: Document 10/18/19 12:32 (Rec: 10/18/19 13:04 [id number]) Orientation Orientation/Cognition Level of Alertness Confusional State Orientation Name,Situation Language Function Ability No Deficits Noted,Hard of Hearing Safety Awareness Decreased Safety Awareness Memory Description Short Term Impaired,Dental Hygienist Impaired Gross Range of Motion Upper Extremity ROM Assessment Within Functional Limits Lower Extremity ROM Assessment Left Impaired Impairments significant pain noted with minimal movements Strength Upper Extremity Strength Assessment Within Functional Limits Lower Extremity Strength Assessment Left Impaired Hip 2/5 Knee 3/5 Comments Strength Comments significant pain noted with minimal movements on L hip M6 PT-IP Treatment Start: 10/18/19 08:21 Freq: NEEDED Status: Active Protocol: Document 10/21/19 14:41 AB (Rec: 10/21/19 16:00 AB [id number]) Physical Therapy Treatment Education Education Provided Safety Equipment Issued Equipment Type and Company PROM LLE M7 PT-IP Assessment and Plan Start: 10/18/19 08:21 Freq: NEEDED Status: Active Protocol: Document 10/21/19 14:41 AB (Rec: 10/21/19 16:00 AB [id number]) PT Summary Assessment and Plan Potential Rehabilitation Potential Fair Summary Impairments Pain,ROM,Strength,Balance, Coordination,Sensation,Tone, Cognition,Bed Mobility, Transfers,Gait,Activity Tolerance Progress Towards Goals Slow Progress due to Pain,Slow Progress due to Medical Issues Assessment Summary pt continues to require max A x 2 and max cues with all tasks and will require SNF rehab to improve strength and functional mobility. Goals Bed Mobility Goal Minimal Assistance Transfer Goal Minimal Assistance,Front Wheeled Walker Gait Goal Minimal Assistance,Front Wheel Walker Gait Distance 50 Days to Meet Goals 5 Frequency of Treatment Frequency Of Treatment Twice a Day Treatment Plan Physical Therapy Treatment Plan Bed Mobility Training,Transfer Training,Gait Training, Therapeutic Exercise,Balance Retraining,Post Op Education, Discharge Planning,Hot or Cold Pack,Manual Therapy Other Recommendations and Next Treatment transfers, ambulation Focus Recommendations To Nursing Amount of Assist Needed Mechanical Lift Discharge Recommendations PT Discharge Recommendations SNF Rehab Transportation Needs at Discharge Wheelchair/Cabulance,Stretcher /Ambulance
--- NOTE | 2019-10-21 15:23 | CM.DPNOTE ---
DCP Cont Review of DC planning efforts over last two days: [facility] continued to review clinicals and declined patient Wednesday, stating they could not accommodate patient's needs. Attempted to secure bed at [facility] and July said Wednesday that they could not take her Wednesday likely not over the w/e but if patient clears somewhat, and is not shouting out w/movement they may be able to accommodate her care needs before return to [facility]. Placed call to Suad at [facility] today and she reiterated same; she could not make a decision about this patient's admission w/o July's input (Wednesday). Placed call to [facility] Wednesday to speak w/someone about patient returning. Did not hear back. Placed another call to [facility] today, heard later this afternoon from Sports Information Director (name?) at [facility] who explained in detail that patient would only be welcomed back home if family were willing to hire a private cg or customer advisor specialist to sit w/patient during waking hours. Staff at [facility] concerned since patient is behind closed doors and impulsive, that patient will not be able to follow hip precautions and might get hurt. This PROMOTION MANAGER unable to contact family today to review above, d/t caseload and time constraint. PROMOTION MANAGER will need to review w/family Wednesday. Dr Justin awaiting coordination of safe DCP. Patient continues to be tearful and anxious when touched which seems to be her baseline according to consensus from staff here and at [facility]. Patient does well when gently redirected and when discussing animals and children. VALENTIN Bravo
--- NOTE | 2019-10-21 21:01 | PC.NURSE ---
Nicolás phone number:
[2019-10-22 08:26] VITALS: PULSE 71; RESP 14; O2SAT 96
[2019-10-22] MEDS: polyethylene glycoL 3350 17 GM POWD.PACK PO (08:43)
[2019-10-22] MEDS: ACETAMINOPHEN 325 MG TABLET 650 MG PO ×2 (08:43→16:51)
[2019-10-22] MEDS: HYDROCODONE/ACET 5/325 TABLET 1 TAB PO (08:44)
[2019-10-22] MEDS: DOCUSATE 100 MG CAPSULE PO (08:44)
[2019-10-22] MEDS: SENNOSIDES 8.6 MG TABLET 17.2 MG PO (08:44)
[2019-10-22] MEDS: ENOXAPARIN 40 MG/0.4 ML SYRINGE SUBCUT (08:45)
[2019-10-22] MEDS: BISACODYL 10 MG SUPP PR (10:00)
--- NOTE | 2019-10-22 10:28 | PT.IPTN ---
Current Diagnoses Unspecified fracture of left femur, initial encounter for closed fracture (10/16/19) Surgery Performed Operation Date: 10/17/19 13:30 Actual Procedures p ORIF Hip DHS(Left) - Masood Castano MD Physical Therapy Treatment Note M2 PT-IP Current Condition Start: 10/18/19 08:21 Freq: NEEDED Status: Active Protocol: Document 10/18/19 12:32 HH (Rec: 10/18/19 13:04 [id number]) Physical Therapy Current Condition Current Condition Evaluation Date 10/18/19 Treatment Diagnosis L hip ORIF, difficulty in walking, fall risk Onset Date 10/17/19 Weight Bearing Status Weight Bearing Status Weight Bear as Tolerated M3 PT-IP Subjective Start: 10/18/19 08:21 Freq: NEEDED Status: Active Protocol: Document 10/22/19 10:11 CLB (Rec: 10/22/19 11:10 CLB [id number]) Subjective Physical Therapy Visit Type Type Treatment Note Visit Start Time 10:11 Visit Stop Time 10:28 Total Visit Minutes 17 Number of FARM MACHINERY ASSEMBLER Visits 1 Physical Therapy Visit Comments Patient Comments I hurt Therapy Pain Assessment Pain When Pain Assessed During Mobility Pain Present Pain Present Pain Reported Location L hip Scale Used pain scale not stated Pain Behaviors Calling Out,Crying,Guarding, Wincing Pain Management Techniques Distraction,Re-positioning, Timing of Activity with Medications M4 PT-IP Mobility and Gait Start: 10/18/19 08:21 Freq: NEEDED Status: Active Protocol: Document 10/22/19 10:11 CLB (Rec: 10/22/19 11:10 CLB [id number]) PT-Bed Mobility Assessment Rolling Type of Rolling Log Rolling,Bilateral Scooting Scooting Up and Down in Bed Dependent PT-Transfer Assessment Transfer Ability Level of Assist Maximum Assistance,2 Person Assistance Comments Mobility Comments Pt refused to get up but required assist with LR bilaterally to have breif change. Pt cries out and states it hurts throughout tx. Pt guards LLE making PROM difficult. Pt refusing to take pain meds. Pt required CGA during with cues for deep breathing. M5 PT-IP Objective Assessments Start: 10/18/19 08:21 Freq: NEEDED Status: Active Protocol: Document 10/18/19 12:32 HH (Rec: 10/18/19 13:04 [id number]) Orientation Orientation/Cognition Level of Alertness Confusional State Orientation Name,Situation Language Function Ability No Deficits Noted,Hard of Hearing Safety Awareness Decreased Safety Awareness Memory Description Short Term Impaired,Fpc Impaired Gross Range of Motion Upper Extremity ROM Assessment Within Functional Limits Lower Extremity ROM Assessment Left Impaired Impairments significant pain noted with minimal movements Strength Upper Extremity Strength Assessment Within Functional Limits Lower Extremity Strength Assessment Left Impaired Hip 2/5 Knee 3/5 Comments Strength Comments significant pain noted with minimal movements on L hip M6 PT-IP Treatment Start: 10/18/19 08:21 Freq: NEEDED Status: Active Protocol: Document 10/22/19 10:11 CLB (Rec: 10/22/19 11:10 CLB [id number]) Physical Therapy Treatment Equipment Issued Equipment Type and Company PROM LLE Other Treatments Other Treatment Performed PROM M7 PT-IP Assessment and Plan Start: 10/18/19 08:21 Freq: NEEDED Status: Active Protocol: Document 10/22/19 10:11 CLB (Rec: 10/22/19 11:10 CLB [id number]) PT Summary Assessment and Plan Potential Rehabilitation Potential Fair Summary Impairments Pain,ROM,Strength,Balance, Coordination,Sensation,Tone, Cognition,Bed Mobility, Transfers,Gait,Activity Tolerance Progress Towards Goals Slow Progress due to Pain,Slow Progress due to Medical Issues,Slow Progress due to Activity Tolerance Assessment Summary Pt requires Max A x2 for all bed mobility, pt will require SNF rehab to improve functional mobilty. Goals Bed Mobility Goal Minimal Assistance Transfer Goal Minimal Assistance,Front Wheeled Walker Gait Goal Minimal Assistance,Front Wheel Walker Gait Distance 50 Days to Meet Goals 5 Frequency of Treatment Frequency Of Treatment Twice a Day Treatment Plan Physical Therapy Treatment Plan Bed Mobility Training,Transfer Training,Gait Training, Therapeutic Exercise,Balance Retraining,Post Op Education, Discharge Planning,Hot or Cold Pack,Manual Therapy Other Recommendations and Next Treatment transfers, ambulation Focus Recommendations To Nursing Amount of Assist Needed Mechanical Lift Discharge Recommendations PT Discharge Recommendations SNF Rehab Transportation Needs at Discharge Wheelchair/Cabulance,Stretcher /Ambulance
[2019-10-22 11:27] VITALS: BP 158/91; PULSE 72; RESP 18; TEMP 37.7; O2SAT 97
--- NOTE | 2019-10-22 14:26 | PM.PN.1 ---
Subjective Subjective Date Patient Seen: 10/22/19 Time Patient Seen: 14:27 Interval history: Patient is an 79-year-old female who is status post repair of left intertrochanteric fracture. Unable to find a group home facility for placement at this time, will continue to exhaust all options prior to possible discharge home may be tomorrow. Patient denies any pain at rest, but still continues to complain of pain all over with movement. She remains emotionally labile. Exam Vital Signs (past 8 hours): - 10/22/19 08:26 10/22/19 11:27 Temperature 99.8 F H Pulse Rate 71 72 Respiratory Rate 14 18 Blood Pressure 158/91 H Pulse Oximetry 96 97 Oxygen Delivery Method Room Air Oxygen Flow Rate 0 Narrative Exam Narrative: PE: Gen: Alert, oriented to self only, thin 79 y.o. female, NAD HEENT: normocephalic, atraumatic, conjunctiva clear, sclera non-icteric, oral mucosa pink and moist Neck: supple, full ROM, no JVD, trachea is midline Resp: Lungs CTA, non-labored breathing CV: RRR, no murmur or rubs Abd: soft, non-tender, normoactive BTs Skin: no lesions or rashes, dry and intact Neuro: Alert to self, but unable to follow directions. Speech clear and coherent. Extremities: no edema Psyche: pleasantly confused, axo x1 Objective Labs Result Diagrams: 10/18/19 05:19 10/17/19 04:48 Assessment & Plan Assessment & Plan narrative: Missy Mcmahon is admitted for treatment and management of a left intratrochanteric hip fracture. She underwent operative pinning procedure with orthopedic surgery. She is awaiting a safe discharge plan at the moment given no accepting halfway facility at this time. 1. Status post surgical repair of a left intertrochanteric fracture most likely related to a traumatic fall -patient is making slow but steady progress related to physical therapy and occupational therapy. -will continue pain medication and therapies. -awaiting placement vs possible return to assisted living with caregivers. Appreciate social work intervention. 2. Dementia Continued donepezil 3. Hypertension Continued lisinopril Dispo: pending safe discharge plan. Code: DNR DVT: Lovenox daily COVID-19 COVID-19 status: Negative Quality VTE Deep Vein Thrombosis/Pulmonary Embolism Present on Admission: No
--- NOTE | 2019-10-22 14:37 | CM.DPNOTE ---
DCP: Assisting VALENTIN Perry, in locating accepting rehab facilities with her permission. Went ahead and attempted some facilities in the [place] area. Started with [facility]. Left message with Page in admissions. Her phone number is: [phone]. She just called back shortly after leaving message and spoke to Vicky. She is faxing over referral to [facility], and Page will review. Called [facility] in [place]. Left a message in admissions to inquire if they have any female beds. Called [facility]. Spoke to premises technician, she is not sure, but they may have availabilities. She encouraged to fax over referral. Their fax number is: [phone]. Will send over referral. Margot Cline RN/Freight Sales Broker
--- NOTE | 2019-10-22 14:39 | PT-IP ANOTE ---
Refusal per RN, pt had just been changed with bed mobility and is now asleep and with increased pain today, will check back with pt in the morning.
--- NOTE | 2019-10-22 14:48 | CM.DPC ---
DCP Ongoing SNF Planning: Per MD, pt remains stable with some pain management issues as pt not always willing to take pain medications. Per RN/jewel hole finish opener/GAS ENGINE OPERATOR COMPRESSORS, pt only calling out when staff in room attempting to move patient and pt does not call out otherwise and not exit seeking or attempting to get out of bed and no 1:1 needed during pt's stay. No further behaviors identified. Per previous SW note and attempts: [facility] declines accepting pt. [facility]- full [facility]full [facility] not accepting new admits until at earliest [facility]- declines [facility]- want to review again on Wednesday to determine if they can meet pt's needs [facility]- declines [facility]- declines Per MD, pt would not meet Hospice criteria unless she began not eating but currently has been able to maintain adequate intake/nutrition. FABRICE called pt's MANUEL/CLEMENTE Louis [phone] and discussed above and the barriers to SNF placement due to dementia/pain control issues and MANUEL acknowledges understanding and states that her preference would be SNF under her Medicare if a facility willing to accept and agreeable with searching for SNF in [place] and hope is [facility] will review tomorrow and be willing to accept. DCP Marylin kindly called [facility] in [place] and both are willing to review and clinical referral packet faxed to both. FABRICE discussed need for backup plan of either Private Pay Respite at [facility] or private caregiver at [facility] during day time hours. MANUEL states she would be willing to consider PP CG at [facility] but has already had difficulty finding available PP CG for pt's spouse who lives at home and has dementia as well but may have just secured a caregiver for him. MANUEL states pt has been to [facility] prior to her move into [facility] (due to being closer to family in [place]) and cost had been $3000 and pt only there a week before moving into [facility] and MANUEL feels that preference would be 1) SNF 2) Return to [facility] with PP CG for additional support until pt more independent with ADL's. FABRICE called [facility] and confirmed they have openings for Respite stay but a month Respite would be around $9000. FABRICE called [facility] to get more specific details on a potential plan for pt return if SNF not secured by tomorrow and no RN/DNS available on Mondays to further discuss return plan. Plan: SW to follow closely Wednesday morning with [facility] to determine if they can accept as pt has minimal behaviors and no exit/bed seeking. SW to follow for [facility] review as back up. SW to contact Wednesday when RN available to discuss possible need for return plan and specific details that would be needed for pt return. VALENTIN Rodrigse
--- NOTE | 2019-10-22 15:32 | PC.NURSE ---
Shift summary: Late entry Patient oriented to self only. When at rest in the room she is mostly quiet, and has not been impulsive. C/O pain in LLE (as well as a headache), but refused to take any pain medication despite multiple attempts by various staff members to convince her that it would be to her benefit. Ice pack used intermittently today. Dressing to L hip C/D/I, circulation/sensation to LLE WNL. Patient yells out almost any time staff touches her, and definitely yells when we have to reposition her or change her brief. Patient has an area of blanchable erythema on coccyx with a small purple area noted in the center that was not blanchable. Photos taken of coccyx and covered with Allevyn dressing. Old dressings removed from patient's L heel and R lateral ankle, photos taken and L heel site cleansed with normal saline and covered with Allevyn. The site on her R ankle appeared to be mostly healed, so left ELEVATOR REPAIR MECHANIC. Booties placed to float bilateral heels, waffle cushion placed underneath her bottom. Resting quietly in bed at bedside report, 0 on FLACC scale. Call light and belongings within reach, bed alarm on.
[2019-10-22 18:24] VITALS: BP 127/70; PULSE 82; RESP 18; TEMP 36.7
[2019-10-22] MEDS: ONDANSETRON 4 MG ODT PO (19:09)
--- NOTE | 2019-10-22 19:12 | PC.NURSE ---
pt reports she is feeling nauseous. I gave her zofran with apple sauce.
[2019-10-22 19:25] VITALS: PULSE 76; RESP 14; O2SAT 95
[2019-10-22 23:00] VITALS: RESP 16
[2019-10-23 03:04] VITALS: BP 175/82; PULSE 75; RESP 18; TEMP 36.4
[2019-10-23] MEDS: HYDROCODONE/ACET 5/325 TABLET 1 TAB PO ×2 (03:10→06:19)
[2019-10-23 07:48] VITALS: BP 128/70; PULSE 62; RESP 16; TEMP 36.4; O2SAT 94
[2019-10-23 08:07] VITALS: PULSE 67; RESP 20; O2SAT 93
--- NOTE | 2019-10-23 08:50 | CM.DANOTE ---
Addendum entered by Floresita Walker 10/23/19 16:02: Received return phone call from July at [facility]. She reports that they cannot accept. Therefore, MOVIE PROJECTIONIST sent faxes and called additional SNF's. Spoke with Lynne at [facility], requesting that they re-consider. They said no. Placed call to [facility] in [place], spoke with Joie. She does have bed and requested clinical be faxed. After a few hours of review, MOVIE PROJECTIONIST received return phone call indicating they can accept today. Spoke with Dr. Jurado and orders obtained. In addition COVID rapid test ordered. Facility aware that result may not come back until after patient leaves. Per Joie that's okay. Patient has already had one negative COVID. RN given number to call report. MOVIE PROJECTIONIST placed call to ambulance, requesting non-urgent BLS transport. Needed BLS forms completed and patient scheduled to be picked up around 4:15pm. RN updated. Left vm with patient's family/DPOA listed Alden and Missy at [phone] notifying them that loved one would be going to [facility] today. No personal information left on vm. P: [facility] today via BLS transport. VALENTIN Cherry Original Note: DCP/continued: Reviewed notes. Apparently, patient difficult to place due to dementia. Patient originally from [place]. Notes report patient complains when moved otherwise, she has been okay. Placed call to July at [facility] this AM. Requested that they let us know this AM on whether or not they can accept. P: Pending. VALENTIN Cherry
[2019-10-23] MEDS: DOCUSATE 100 MG CAPSULE PO (09:38)
[2019-10-23] MEDS: ACETAMINOPHEN 325 MG TABLET 650 MG PO ×2 (09:38→14:13)
[2019-10-23] MEDS: SENNOSIDES 8.6 MG TABLET 17.2 MG PO (09:38)
[2019-10-23] MEDS: SODIUM CHLORIDE 0.9% FLUSH 10 ML IV (09:39)
--- NOTE | 2019-10-23 10:55 | OT.IP.TRT ---
Current Diagnoses Unspecified fracture of left femur, initial encounter for closed fracture (10/16/19) Surgery Performed Operation Date: 10/17/19 13:30 Actual Procedures p ORIF Hip DHS(Left) - Masood Castano MD Occupational Therapy Treatment Note M2 OT-IP Current Condition Start: 10/21/19 12:49 Freq: Status: Active Protocol: Document 10/21/19 12:50 CGR (Rec: 10/21/19 13:08 CGR [email or web address]) Occupational Therapy Current Condition Current Condition Evaluation Date 10/21/19 Treatment Diagnosis GLF now s/p 10/16 ORIF Diagnosis Onset Date 10/16/19 Weight Bearing Status Weight Bearing Status Weight Bear as Tolerated M3 OT- IP Subjective and Pain Start: 10/21/19 12:49 Freq: Status: Active Protocol: Document 10/23/19 11:40 CGR (Rec: 10/23/19 11:48 CGR [email or web address]) OT- Subjective Occupational Therapy Visit Type Type Progress Note Visit Start Time 10:25 Visit Stop Time 10:55 Total Visit Minutes 30 Notes co-treat with P.T. Occupational Therapy Visit Comments Patient Comments I am scared, I don't want to fall. OT Pain Assessment Pain When Pain Assessed During Mobility Pain Present Pain Present Pain Reported Location L hip Scale Used unable to rate Pain Behaviors Calling Out,Guarding,Moaning, Wincing Management Techniques Modification of Treatment,Re- positioning,Timing of Activity with Medications M4 OT- IP ADL's Start: 10/21/19 12:49 Freq: Status: Active Protocol: Document 10/23/19 11:40 CGR (Rec: 10/23/19 11:48 CGR [email or web address]) OT [id number] Comments OT Self-Feeding Comments not meal time OT ADL-Grooming Comments OT Grooming Comments not performed in this session. OT ADL-Oral Care Comments Oral Care Comments Performed with nursing this AM . OT ADL-Dressing General Eval Lower Body Dressing Ability Total Assistance Areas Needing Assistance Socks OT ADL-Toileting Comments OT Toileting Comments not performed, pt in brief. OT ADL-Bathing Comments OT Bathing Comments not performed M5 OT- IP IADL's Start: 10/21/19 12:49 Freq: Status: Active Protocol: Document 10/21/19 12:50 CGR (Rec: 10/21/19 13:08 CGR [email or web address]) OT-Instrumental Activities of Daily Living Deficits IADL Deficits Identified Deficits Home Safety Awareness Awareness of Need for Assistance at Home Decreased Awareness Ability to Problem Solve Emergency Unable to Problem Solve Situations Medication Management Medication Management Caregiver Administers Money Management Money Management Caregiver Provides Assistance Meal Preparation Meal Preparation Caregiver Provides Assist Frame Table Operator Helper Frame Table Operator Helper Caregiver Provides Assist Driving Driving Comments Pt does not drive. M6 OT- IP Functional Cognition Start: 10/21/19 12:49 Freq: Status: Active Protocol: Document 10/23/19 11:40 CGR (Rec: 10/23/19 11:48 CGR [email or web address]) Cognitive Factors Limiting Selfcare Function Cognitive Ability Level of Alertness Alert,Confusional State Patient Orientation Name Attention Span Ability Unable to Focus,Unable to Sustain Attention Ability to Follow Commands Able to Follow One Step Commands with Increased Time, Able to Follow One Step Commands with Repetition Cognitive Comments Cognitive Assessment Comments Pt with advanced dementia but able to follow commands with extra time and redirection. OT- Vision and Hearing OT- Hearing Assessment OT- Hearing Assessment WFL OT- Vision Assessment Visual Acuity WFL Visual Attentiveness WFL Occular Pursuits WFL M7 OT- IP Mobility and Balance Start: 10/21/19 12:49 Freq: Status: Active Protocol: Document 10/23/19 11:40 CGR (Rec: 10/23/19 11:48 CGR [email or web address]) OT- Bed Mobility Assessment Rolling Level of Assistance Maximum Assistance,1 Person Assistance,Head of Bed Elevated Supine to Sit Supine to Sit Assist Maximum Assistance,1 Person Assistance,Head of Bed Elevated Scooting Scooting to Edge of Bed Maximum Assistance,1 Person Assistance OT-Transfer Assessment Sit to and From Stand Sit to and from Stand Maximum Assistance,2 Person Assistance Transfers Transfer Ability Maximum Assistance,1 Person Assistance,2 Person Assistance Technique Transfer Destination Bed,Chair Transfer Technique Stand Step Pivot Devices Transfer Assistive Devices Gait Belt,Front Wheeled Walker Comments Mobility Comments Pt needed max x 2 and blocking of B feet to prevent sliding out with sit to stand but then was able to take steps with max encouragement and 2 person max a d/t safety and pt's fear of falling. Chair brought up behind pt after walking ~3 feet and pt needed max x2 for repositing in chair. OT- Gait Assessment Gait Gait Assistance Required: Maximum Assistance,2 Person Assist Distance (Feet) 3 Able to Maintain Weight Bearing Status Yes During Gait Assistive Devices Assistive Device Gait Belt,Front Wheeled Walker Comments Gait Ability Comments Pt needs extra time and lots of encouragement to take steps . OT- Balance Assessment Sitting Balance and Reactions Static Sitting Balance Ability Poor Dynamic Sitting Balance Ability Poor Standing Balance and Reactions Static Standing Balance Ability Poor Comments Other Balance Tests/Deviations/Treatment Pt with posterior lean upon : sitting but improved with rocking. M8 OT- IP Objective Assessments Start: 10/21/19 12:49 Freq: Status: Active Protocol: Document 10/21/19 12:50 CGR (Rec: 10/21/19 13:08 CGR [email or web address]) OT Gross Range of Motion Upper Extremity Range of Motion Assessment Within Functional Limits OT Strength Upper Extremity Strength Assessment Within Functional Limits Comments Strength Comments Pt had difficulty follow commands for MMT but appears to be ~4/5 throughout. OT- Coordination Assessment Comments Coordination Comments Unable to fully test coordination but able to use fork and get fork to mouth without difficulty. OT-Muscle Tone Assessment Muscle Tone WNL Yes OT Sensation Assessment Edema Edema Absent M9 OT- IP Assessment and Plan Start: 10/21/19 12:49 Freq: Status: Active Protocol: Document 10/23/19 11:40 CGR (Rec: 10/23/19 11:48 CGR [email or web address]) OT Summary Assessment and Plan Potential Rehabilitation Potential Good Analytic Complexity at Evaluation Moderate Summary OT Impairments Pain,Strength,Balance, Functional Cognition, Functional Mobility,Grooming, Dressing,Toileting,Bathing, Toilet Transfers,Shower Transfers,Activity Tolerance Progress Towards Goals Slow Progress due to Cognition Assessment Summary Pt presents as a moderate complexity evaluation s/p fall with hip fx who underwent ORIF. Pt has severe dementia at baseline that is impacting her ability to participate fully in therapy, however, pt is able to follow commands with extra time and a gentle approach. Pt improved on this date with the ability to take steps to walk ~3 steps with extra time. Pt left sitting up in chair with waffle cushion under her, and heal protectors donned in chair. Chair fall alarm armed and nursing notified that pt left up in chair. Call button within reach. Goals Dressing Goal Minimal Assistance Toileting Goal Independent Bathing Goal Minimal Assistance Toilet Transfer Goal Standby Assistance Shower Transfer Goal Minimal Assistance Days to Meet Goals 20 Frequency of Treatment Frequency Of Treatment Once a Day Treatment Plan OT Treatment Plan ADL Training,Functional Cognition Training,Functional Mobility,Patient/Family Education,Discharge Planning Other Treatment Recommendations and Next ADLs seated. Treatment Focus Discharge Recommendations OT Discharge Recommendations SNF Rehab Home Equipment Needs TBD Transportation Needs at Discharge Private Vehicle
--- NOTE | 2019-10-23 10:55 | PT.IPTN ---
Current Diagnoses Unspecified fracture of left femur, initial encounter for closed fracture (10/16/19) Surgery Performed Operation Date: 10/17/19 13:30 Actual Procedures p ORIF Hip DHS(Left) - Masood Castano MD Physical Therapy Treatment Note M2 PT-IP Current Condition Start: 10/18/19 08:21 Freq: NEEDED Status: Active Protocol: Document 10/18/19 12:32 HH (Rec: 10/18/19 13:04 HH [id number]) Physical Therapy Current Condition Current Condition Evaluation Date 10/18/19 Treatment Diagnosis L hip ORIF, difficulty in walking, fall risk Onset Date 10/17/19 Weight Bearing Status Weight Bearing Status Weight Bear as Tolerated M3 PT-IP Subjective Start: 10/18/19 08:21 Freq: NEEDED Status: Active Protocol: Document 10/23/19 10:25 CLB (Rec: 10/23/19 12:06 CLB [id number]) Subjective Physical Therapy Visit Type Type Treatment Note Visit Start Time 10:25 Visit Stop Time 10:55 Total Visit Minutes 30 Notes Co-treat with OT Number of ROLL TENSION TESTER Visits 2 Physical Therapy Visit Comments Patient Comments Pt willing to get up and sit in chair. Pt states she is scared. Therapy Pain Assessment Pain When Pain Assessed During Mobility Pain Present Pain Present Pain Reported Location L hip Scale Used pain scale not stated Pain Behaviors Facial Grimacing Pain Management Techniques Distraction,Re-positioning, Timing of Activity with Medications M4 PT-IP Mobility and Gait Start: 10/18/19 08:21 Freq: NEEDED Status: Active Protocol: Document 10/23/19 10:25 CLB (Rec: 10/23/19 12:06 CLB [id number]) PT-Bed Mobility Assessment Supine to Sit Supine to Sit Maximum Assistance,1 Person Assistance Scooting Scooting to Edge of Bed Maximum Assistance PT-Transfer Assessment Sit to and From Stand Sit to and from Stand Maximum Assistance,2 Person Assistance,Use of Upper Extremities Equipment Transfer Assistive Device Gait Belt,Front Wheeled Walker Orthotic/Prosthetic Devices or Brace: No Transfers Transfer Destination Chair Transfer Technique walked w/FWW Transfer Ability Level of Assist Maximum Assistance,2 Person Assistance Comments Mobility Comments Pt in bed upon arrival, pt states she is scared to fall but is willing to get up to chair. Pt required Max Ax1 supine-sit and Max A with use of draw sheet to EOB. Pt sat on EOB as OT rocked pt improving sitting balance. Pt required Max A x2 for staning with need of tactile positioning of feet and guarding of both feet so they wouldn't sleep in standing. Pt unable to stand at first attempt but able to stand with second attempt. Pt ambulated ~3ft with constant reassurance and encouragement. Pt able to follow simple step by step commands to move walker then left and right foot. Pt able to advance LLE but had increased difficulty with RLE due to pain in left hip with increased weight bearing. Pt required Max A for stand-sit with tactile cues for hand placment on arm of chair for safety and assist for controlled descent. Pt required dependent assist with use of draw sheet to position pt in chair. Pt was left reclined in chair with chair alarm on, all needs within reach. Informed HALL DIRECTOR of pt positon in chair with alarm on . Gait Assessment Gait Gait Assistance Required: Maximum Assistance,2 Person Assist Distance (Feet) 3 Able to Maintain Weight Bearing Status Yes During Gait Assistive Devices Assistive Device Gait Belt,Front Wheeled Walker Orthotic/Prosthetic Devices or Brace: No Gait Deviations General Gait Pattern Antalgic,Decreased Stride Length,Decreased Feet Clearance,Flexed Trunk,Narrow Based Gait,Step-to Gait Factors Limiting Gait Function Factors Limiting Gait Function Decreased Activity Tolerance, Decreased Strength,Difficulty Following Directions, Incoordination,Pain,Poor Balance,Poor Safety Awareness Comments Gait Comments Pt requires Max A x2 for safety during ambulation. Please see mobility section for details. M5 PT-IP Objective Assessments Start: 10/18/19 08:21 Freq: NEEDED Status: Active Protocol: Document 10/18/19 12:32 (Rec: 10/18/19 13:04 [id number]) Orientation Orientation/Cognition Level of Alertness Confusional State Orientation Name,Situation Language Function Ability No Deficits Noted,Hard of Hearing Safety Awareness Decreased Safety Awareness Memory Description Short Term Impaired,Beef Cattle Farm Manager Impaired Gross Range of Motion Upper Extremity ROM Assessment Within Functional Limits Lower Extremity ROM Assessment Left Impaired Impairments significant pain noted with minimal movements Strength Upper Extremity Strength Assessment Within Functional Limits Lower Extremity Strength Assessment Left Impaired Hip 2/5 Knee 3/5 Comments Strength Comments significant pain noted with minimal movements on L hip M6 PT-IP Treatment Start: 10/18/19 08:21 Freq: NEEDED Status: Active Protocol: Document 10/22/19 10:11 CLB (Rec: 10/22/19 11:10 CLB [id number]) Physical Therapy Treatment Equipment Issued Equipment Type and Company PROM LLE Other Treatments Other Treatment Performed PROM M7 PT-IP Assessment and Plan Start: 10/18/19 08:21 Freq: NEEDED Status: Active Protocol: Document 10/23/19 10:25 CLB (Rec: 10/23/19 12:06 CLB [id number]) PT Summary Assessment and Plan Potential Rehabilitation Potential Fair Summary Impairments Pain,ROM,Strength,Balance, Coordination,Sensation,Tone, Cognition,Bed Mobility, Transfers,Gait,Activity Tolerance Progress Towards Goals Slow Progress due to Pain,Slow Progress due to Medical Issues,Slow Progress due to Activity Tolerance Assessment Summary Pt able to ambulate ~3ft requiring Max A and max reassurance and encouragement. Pt continues to require Max A for bed mobility and sit- stand. Pt requires increased time for all mobility. Pt will require SNF rehab to improve strength and funtional mobility. Goals Bed Mobility Goal Minimal Assistance Transfer Goal Minimal Assistance,Front Wheeled Walker Gait Goal Minimal Assistance,Front Wheel Walker Gait Distance 50 Days to Meet Goals 5 Frequency of Treatment Frequency Of Treatment Twice a Day Treatment Plan Physical Therapy Treatment Plan Bed Mobility Training,Transfer Training,Gait Training, Therapeutic Exercise,Balance Retraining,Post Op Education, Discharge Planning,Hot or Cold Pack,Manual Therapy Other Recommendations and Next Treatment transfers, ambulation Focus Recommendations To Nursing Amount of Assist Needed Mechanical Lift Discharge Recommendations PT Discharge Recommendations SNF Rehab Transportation Needs at Discharge Wheelchair/Cabulance,Stretcher /Ambul
--- NOTE | 2019-10-23 11:27 | PC.NURSE ---
Day shift: Pt OOB w/ PT this AM and sitting in chair. Tolerating well. Pt is asleep. Chair alarm is on. Call light in reach.
--- NOTE | 2019-10-23 12:25 | PC.NURSE ---
Day shift: Pt awake and eating lunch in the chair in her room. Denies any pain or discomfort at this time. call light in reach and chair alarm in place. Door to room open.
--- NOTE | 2019-10-23 13:35 | PT.IPTN ---
Current Diagnoses Unspecified fracture of left femur, initial encounter for closed fracture (10/16/19) Surgery Performed Operation Date: 10/17/19 13:30 Actual Procedures p ORIF Hip DHS(Left) - Masood Castano MD Physical Therapy Treatment Note M2 PT-IP Current Condition Start: 10/18/19 08:21 Freq: NEEDED Status: Active Protocol: Document 10/18/19 12:32 HH (Rec: 10/18/19 13:04 HH [id number]) Physical Therapy Current Condition Current Condition Evaluation Date 10/18/19 Treatment Diagnosis L hip ORIF, difficulty in walking, fall risk Onset Date 10/17/19 Weight Bearing Status Weight Bearing Status Weight Bear as Tolerated M3 PT-IP Subjective Start: 10/18/19 08:21 Freq: NEEDED Status: Active Protocol: Document 10/23/19 13:07 CLB (Rec: 10/23/19 14:50 CLB [id number]) Subjective Physical Therapy Visit Type Type Treatment Note Visit Start Time 13:07 Visit Stop Time 13:35 Total Visit Minutes 28 Number of EVP [employer] Visits 3 Physical Therapy Visit Comments Patient Comments Pt wanting to return to bed. Therapy Pain Assessment Pain When Pain Assessed During Mobility Pain Present Pain Present Pain Reported Location L hip Scale Used pain scale not stated Pain Behaviors Facial Grimacing,Guarding, Holding Area Pain Management Techniques Distraction,Re-positioning, Timing of Activity with Medications M4 PT-IP Mobility and Gait Start: 10/18/19 08:21 Freq: NEEDED Status: Active Protocol: Document 10/23/19 13:07 CLB (Rec: 10/23/19 14:50 CLB [id number]) PT-Bed Mobility Assessment Rolling Type of Rolling Log Rolling,Bilateral Sit to Supine Sit to Supine Maximum Assistance,2 Person Assistance Scooting Scooting Up and Down in Bed Dependent PT-Transfer Assessment Sit to and From Stand Sit to and from Stand Maximum Assistance,2 Person Assistance,Use of Upper Extremities Equipment Transfer Assistive Device Gait Belt,Front Wheeled Walker Orthotic/Prosthetic Devices or Brace: No Transfers Transfer Destination Bed Transfer Technique Squat Pivot Transfer Ability Level of Assist Maximum Assistance,2 Person Assistance Comments Mobility Comments Pt sitting in chair upon arrival. Pt agreeable to get back to bed as pt required brief change. Pt required Max A x1 with use of draw sheet to come to edge of chair, pt then required tactile cues to position LE's for standing. Pt stood Max A x2 but was unable to take steps to transfer to EOB from chair. Pt sat back in chair and was assisted to bed with squat pivot transfer per this EVP [employer] and hip guidance from [employer]. Pt then required Max A x2 for sit-supine. Pt required Max A x1 for bilateral LR for esvin/doffing brief, [employer] performed pericare. Pt left in bed with waffle cushion and slight tilt to left with pillow behind, heel protectors on and pillow under legs to float heels. Alarm on with call light and all other needs within reach. Gait Assessment Comments Gait Comments unable to ambulate this tx due to pain. M5 PT-IP Objective Assessments Start: 10/18/19 08:21 Freq: NEEDED Status: Active Protocol: Document 10/18/19 12:32 HH (Rec: 10/18/19 13:04 HH [id number]) Orientation Orientation/Cognition Level of Alertness Confusional State Orientation Name,Situation Language Function Ability No Deficits Noted,Hard of Hearing Safety Awareness Decreased Safety Awareness Memory Description Short Term Impaired,[employer] Impaired Gross Range of Motion Upper Extremity ROM Assessment Within Functional Limits Lower Extremity ROM Assessment Left Impaired Impairments significant pain noted with minimal movements Strength Upper Extremity Strength Assessment Within Functional Limits Lower Extremity Strength Assessment Left Impaired Hip 2/5 Knee 3/5 Comments Strength Comments significant pain noted with minimal movements on L hip M6 PT-IP Treatment Start: 10/18/19 08:21 Freq: NEEDED Status: Active Protocol: Document 10/23/19 13:07 CLB (Rec: 10/23/19 14:50 CLB [id number]) Physical Therapy Treatment Exercises Exercises Heel Slides,Straight Leg Raises,Supine Hip Abduction Other Treatments Other Treatment Performed PROM for HE, SLR and SHA M7 PT-IP Assessment and Plan Start: 10/18/19 08:21 Freq: NEEDED Status: Active Protocol: Document 10/23/19 13:07 CLB (Rec: 10/23/19 14:50 CLB [id number]) PT Summary Assessment and Plan Potential Rehabilitation Potential Fair Summary Impairments Pain,ROM,Strength,Balance, Coordination,Sensation,Tone, Cognition,Bed Mobility, Transfers,Gait,Activity Tolerance Progress Towards Goals Slow Progress due to Pain,Slow Progress due to Medical Issues,Slow Progress due to Activity Tolerance Assessment Summary Pt unable to perform stand step transfer back to bed due to pain. Pt required Max A for squat pivot transfer and Max A x2 for sit-supine. Pt will require SNF rehab to improve functional mobility. Goals Bed Mobility Goal Minimal Assistance Transfer Goal Minimal Assistance,Front Wheeled Walker Gait Goal Minimal Assistance,Front Wheel Walker Gait Distance 50 Days to Meet Goals 5 Frequency of Treatment Frequency Of Treatment Twice a Day Treatment Plan Physical Therapy Treatment Plan Bed Mobility Training,Transfer Training,Gait Training, Therapeutic Exercise,Balance Retraining,Post Op Education, Discharge Planning,Hot or Cold Pack,Manual Therapy Other Recommendations and Next Treatment transfers, ambulation Focus Recommendations To Nursing Amount of Assist Needed Mechanical Lift Discharge Recommendations PT Discharge Recommendations SNF Rehab Transportation Needs at Discharge Wheelchair/Cabulance,Stretcher /Ambulance
--- NOTE | 2019-10-23 15:17 | PM.DS.1 ---
History of Present Illness History of Present Illness Date Patient Seen: 10/23/19 Time Patient Seen: 15:18 Chief complaint: Fall L Hip Pain Narrative: As per TY Lr: Neelima Mcmahon is a pleasantly confused 79 y.o. female resident of [facility] in [place], per the ED record, had a ground level fall resulting in a left intertrochanteric hip fracture. The patient is unable to provide a history, only states she is estranged from her daughter but relies on her son and [id number] to make decisions for her. She currently denies pain, nausea or vomiting, but cannot tell me if she has any other symptoms. She stated others would say she was stupid for falling. She has a history of a hemmorhagic CVA in 2018 where she was airlifted to [facility], and currently takes lisinopril and donepizil for dementia. The patient has a POLST whereby she was to be on comfort measures only. Upon confirmation with her [id number] Missy Burton, who serves as her POA, and she informed me that she was aware that her [id number]-lbl was admitted for a hip fracture and confirmed that they wanted her to have surgery to treat the hip fracture. In the ED they did an x-ray of her left hip as well as a CT of her left hip and pelvis confirming that she had a left-sided low femoral neck fracture just above the intertrochanteric just above the line. She is febrile at 100? since arriving to the floor, blood pressure 162/79, heart rate 74, respiratory rate 19, oxygen saturation of 94% on room air, she weighs 58.6 kg with a BMI of 20.2. CBC is within normal limits with a mildly elevated neutrophil count, INR is 1.0, PT 11.6, sodium 140, potassium 4.5, chloride 106, bicarb 30, creatinine 0.73, BUN 19, GFR is greater than 60, liver enzymes normal, and COVID-19 negative. Discharge Providers Provider Date of admission: 10/16/19 17:39 Discharge Date: 10/23/19 Primary care physician: Indira Hall MD Consults: 10/16/19 20:21 Consult to Physician Routine Comment: Consulting Provider: Masood Castano Reason for consultation: Left hip intertrochanteric fracture Has provider been notified: Yes 10/17/19 16:38 Consult to Discharge Planning Routine Comment: Consult to Physical Therapy Evaluate & Treat Comment: Physician Instructions: post op CARIN protocol Consult to Respiratory Therapy Evaluate & Treat Comment: Physician Instructions: Evaluate and treat 10/20/19 14:48 Consult to Occupational Therapy Evaluate & Treat Comment: Physician Instructions: Evaluate and treat Discharge provider: Nicolás Jurado DO Summary Hospital Course Discharge Diagnosis: Please see hospital course by problem list noted below: Hospital Course: Missy Mcmahon is an 79 year old female admitted for treatment and management of a left intratrochanteric hip fracture. She underwent operative pinning procedure with orthopedic surgery. Prolonged stay due to difficulties with placement. Ultimately discharged to SNF for continued rehab after surgery. 1. Status post surgical repair of a left intertrochanteric fracture most likely related to a traumatic fall -patient is making slow but steady progress related to physical therapy and occupational therapy. -will continue pain medication and therapies. -discharge to SNF. 2. Dementia Continue donepezil 3. Hypertension Continue lisinopril Exam Vital Signs (past 8 hours): - 10/23/19 07:48 10/23/19 08:07 Temperature 97.6 F Pulse Rate 62 67 Respiratory Rate 16 20 Blood Pressure 128/70 Pulse Oximetry 94 93 Oxygen Delivery Method Room Air Oxygen Flow Rate 0 Narrative Exam Narrative: PE: Gen: Alert, oriented to self only, thin 79 y.o. female, NAD HEENT: normocephalic, atraumatic, conjunctiva clear, sclera non-icteric, oral mucosa pink and moist Neck: supple, full ROM, no JVD, trachea is midline Resp: Lungs CTA, non-labored breathing CV: RRR, no murmur or rubs Abd: soft, non-tender, normoactive BTs Skin: no lesions or rashes, dry and intact Neuro: Alert to self, follows commands. Speech clear and coherent. Extremities: no edema Psyche: pleasantly confused, axo x1 Objective Labs Result Diagrams: 10/18/19 05:19 10/17/19 04:48 Discharge Plan Discharge Plan Patient Disposition: SNF Transfer to: [facility] Discharge comment: Missy Mcmahon is an 79 year old female admitted for treatment and management of a left intratrochanteric hip fracture. She underwent operative pinning procedure with orthopedic surgery. Prolonged stay due to difficulties with placement. Ultimately discharged to SNF for continued rehab after surgery. 1. Status post surgical repair of a left intertrochanteric fracture most likely related to a traumatic fall -patient is making slow but steady progress related to physical therapy and occupational therapy. -will continue pain medication and therapies. -discharge to SNF. 2. Dementia Continue donepezil 3. Hypertension Continue lisinopril Discharge orders & Medications Prescriptions: New sennosides [senna] 8.6 mg Tablet 17.2 mg PO BID 14 Days Qty: 56 RF: 0 acetaminophen 325 mg Tablet 650 mg PO TID 30 Days Qty: 180 RF: 0 polyethylene glycol 3350 17 gram Powder In Packet 17 gm PO DAILY PRN (Reason: Constipation) 14 Days Qty: 14 RF: 0 hydrocodone-acetaminophen 5-325 mg Tablet 1 tab PO Q4HR PRN (Reason: Pain, Moderate (4-6)) 7 Days Qty: 20 RF: 0 docusate sodium [DOK] 100 mg Capsule 100 mg PO BID 14 Days Qty: 28 RF: 0 Continued sennosides [senna] 8.6 mg Tablet 8.6 mg PO BID RF: 0 albuterol sulfate 2.5 mg /3 mL (0.083 %) Solution For Nebulization 2.5 mg INHALATION Q4-6H PRN (Reason: Dyspnea) RF: 0 donepezil 10 mg Tablet 10 mg PO DAILY RF: 0 lisinopril 20 mg Tablet 20 mg PO DAILY RF: 0 melatonin 3 mg Tablet 3 mg PO BEDTIME PRN (Reason: Insomnia) RF: 0 ipratropium bromide 17 mcg/actuation Hfa Aerosol Inhaler 1 puff INHALATION QID RF: 0 polyethylene glycol 3350 8.5 gram Powder In Packet 8.5 g PO DAILY RF: 0 Cavilon Durable Barrier 1.3 % Cream See Rx Instructions .ROUTE .COMPLEX PRN (Reason: Skin Irritation) RF: 0 Follow up/Referrals: Indira Hall MD [Primary Care Provider] - Discharge Health Status Precautions: [place] Diet/Activity/Treatments Diet: Diet as Tolerated Liquid consistency: Normal/Thin Food texture: Regular [facility] Reason for rehabilitation: Post-operative therapy Rehab type: Physical therapy and Occupational therapy Discharge Data Primary Care Provider: Indira Hall Quality VTE Deep Vein Thrombosis/Pulmonary Embolism Present on Admission: No
--- NOTE | 2019-10-23 15:59 | PC.NURSE ---
Pt is A and O to self only. She is confused. She is anxious and fearful. She denies pain but calls out when moved. She denies hunger and nausea. She has been advised of her pending move to [facility] but does not understand. VSS.
[2019-10-23 18:05] LABS: COVID19 -Nasal RAPID Negative (Negative)
== END 2019-10-23 16:18 | DRG 482 ==
LOC: ED 17:39 → AC 17:40
PROVIDERS: Nurse Practitioner Family; Orthopaedic Surgery; Admitting Provider Internal Medicine; Emergency Provider Nurse Practitioner Family; PCP Internal Medicine; Referring Provider Nurse Practitioner Family; Visit Provider Internal Medicine
PROC: 0QH704Z Insertion of Internal Fixation Device into Left Upper Femur, Open Approach (ICD-10-PCS; principal; 2019-10-17 13:30)
DX: M80.052A Age-related osteoporosis with current pathological fracture, left femur, initial encounter for fracture (principal); F03.90 Unspecified dementia, unspecified severity, without behavioral disturbance, psychotic disturbance, mood disturbance, and anxiety; L89.629 Pressure ulcer of left heel, unspecified stage; L89.619 Pressure ulcer of right heel, unspecified stage; I10 Essential (primary) hypertension; W18.30XA Fall on same level, unspecified, initial encounter; K59.09 Other constipation; Z66 Do not resuscitate; Z11.59 Encounter for screening for other viral diseases
CPT/HCPCS: 36415; 72192; 73502; 76000; 80048; 80053; 81003; 82550; 82553; 83605; 83735; 84484; 85014; 85018; 85025; 85610; 85730; 86850; 86900; 86901; 87635; 93005; 94640; 94760; 96374; 97110; 97116; 97162; 97166; 97530; 97535; 99284; J0690; J1100; J1650; J2270; J2405; J2704; J3010

== ENCOUNTER 2020-09-04 21:54 | Emergency (ER) | payer MEDICARE, OTHER, SELFPAY ==
[2019-10-16 20:40] VITALS: BMI 20.2
[2020-09-04 22:23] VITALS: BP 143/68; PULSE 71; RESP 18; TEMP 36.4; O2SAT 97
--- NOTE | 2020-09-04 22:36 | ED.FALL ---
HPI - Fall General Chief Complaint: Trauma Stated Complaint: GLF Hit Head - C-Spine Precuations Time Seen by Provider: 09/04/20 22:30 Source: EMS Mode of arrival: EMS History of Present Illness HPI Narrative: 80F former smoker with dementia and COPD presents by EMS for evaluation of ground level fall with head injury. She does not take blood thinners but was activated as a modified trauma due to her age and suspicion of injury. She has a very poor historian and complains of pain everywhere. It does not seem that she had loss of consciousness and she has had no vomiting. She complains of pain in her neck back, chest, abdomen, right arm, left arm. She was given fentanyl pre-hospital Related Data Home Medications Medication Instructions Recorded Confirmed albuterol sulfate 2.5 mg INHALATION Q4-6H PRN 10/16/19 10/16/19 dimethicone 1.3 % topical cream See Rx Instructions .ROUTE 10/16/19 10/17/19 (Cavilon Durable Barrier) .COMPLEX PRN donepezil 10 mg tablet 10 mg PO DAILY 10/16/19 10/16/19 ipratropium bromide 17 1 puff INHALATION QID 10/16/19 10/16/19 mcg/actuation HFA aerosol inhaler lisinopril 20 mg tablet 20 mg PO DAILY 10/16/19 10/16/19 melatonin 3 mg tablet 3 mg PO BEDTIME PRN 10/16/19 10/16/19 polyethylene glycol 3350 8.5 gram 8.5 g PO DAILY 10/16/19 10/16/19 oral powder packet sennosides 8.6 mg tablet (senna) 8.6 mg PO BID 10/16/19 10/16/19 Allergies Allergy/AdvReac Type Severity Reaction Status Date / Time No Known Drug Allergies Allergy Verified 07/30/17 19:14 Review of Systems Review of Systems Narrative: GENERAL: Denies chills, fatigue, malaise, fever, sweats. HEENT: Denies sinus pain, ear pain, sore throat, difficulty swallowing, dizziness. RESPIRATORY: Denies dyspnea, cough, wheezing, hemoptysis, sputum. CARDIOVASCULAR: Denies chest pain, palpitations, orthopnea, edema, GASTROINTESTINAL: Denies nausea, vomiting, abdominal pain, diarrhea, constipation, melena. : Denies dysuria, frequency, incontinence, hematuria, urinary retention. MUSCULOSKELETAL: See HPI SKIN: Denies rash, skin lesions, or other NEUROLOGIC: Denies weakness, headache, numbness, change in speech, confusion, seizures, incoordination. PSYCHIATRIC: No concerning psychosocial issues. 12 point review of systems is negative except for those stated above Patient History Medical History (Updated 09/05/20 @ 04:36 by Viktor Mirza DO) Anxiety COPD (chronic obstructive pulmonary disease) Dementia Headache HTN (hypertension) Hyperlipidemia Osteoporosis Parkinsons disease Peripheral neuropathy Pressure ulcer TIA (transient ischemic attack) Tremor UTI (urinary tract infection) Social History household members: none Smoking Status: Former smoker alcohol intake: former Smoking Status: Former smoker Substance Use Type: does not use Exam Narrative Exam Narrative: GENERAL: [80] year old patient appears stated age. Well-developed patient, in mild distress. Anxious, obviously uncomfortable, yelling in pain, full C-spine immobilization HEAD: Laceration above left eyebrow with minimal surrounding swelling, no obvious depressed skull fracture EYES: Pupils equal round and reactive. No hyphema Extraocular motions intact. No scleral icterus. No injection or drainage. ENT: Nose without bleeding, purulent drainage. No nasal septal hematoma Throat without erythema, tonsillar hypertrophy or exudate. Airway patent. NECK: Trachea midline. Non tender CARDIOVASCULAR: Regular rate and rhythm without murmurs, gallops, or rubs. RESPIRATORY: Clear to auscultation. Breath sounds equal bilaterally. No wheezes, rales, or rhonchi. GASTROINTESTINAL: Abdomen soft, non-tender, nondistended. EXTREMITIES: Right upper extremity in a splint, tender to palpate shoulder and upper arm, no numbness, tingling or weakness. No obvious deformity. Left shoulder tender to palpate, no obvious deformity, no numbness, tingling or weakness BACK: Nontender without deformity or crepitance. No flank tenderness. NEURO: Awake and alert SKIN: No rash or erythema of visible areas Initial Vital Signs Initial Vital Signs: Vital Signs Temperature 97.6 F 09/04/20 22:23 Pulse Rate 71 09/04/20 22:23 Respiratory Rate 18 09/04/20 22:23 Blood Pressure 143/68 H 09/04/20 22:23 Pulse Oximetry 97 09/04/20 22:23 Procedures Laceration Repair Laceration 1: Site: hand Side (If applicable): right Size (cm): 1.0 Description: linear Depth: simple, single layer Local Anesthetic: lidocaine 1% and with bicarb Amount of anesthesia used (mL): 3 Pre-repair: wound explored and irrigated extensively Skin layer closed with: nylon Size (cm): 5-0 Number of sutures: 3 Technique: simple, interrupted Course Orders Ordered: ED Orders 09/04/20 22:52 Complete Blood Count AUTO DIFF Stat Comprehensive Metabolic Panel Stat Ethanol (ETOH) Stat Lipase Stat Partial Thromboplastin Time Stat Prothrombin Time INR Stat Troponin & CK Cardiac Panel Stat Type and Screen Stat Urine Drug Screen, Rapid Stat EKG-12 Lead Stat 09/04/20 22:53 CT cervical spine wo con Stat CT chest abd pel w con Stat CT head/brain wo con Stat 09/05/20 02:31 XR humerus RT 2V Stat Sodium Chloride (Normal Saline 0.9%) 1,000 mls @ 150 mls/hr IV CONT REVA Last Admin: 09/04/20 23:01 Dose: 150 mls/hr Documented by: LANEY Discontinued Medications Bacitracin (Bacitracin Oint 0.9 Gm Pckt) 1 applic TOP NOW ONE Stop: 09/05/20 04:33 Last Admin: 09/05/20 04:47 Dose: 1 applic Documented by: TIFFANY Fentanyl (Fentanyl 100 Mcg/2 Ml Inj) 50 mcg IV NOW ONE Stop: 09/04/20 22:53 Last Admin: 09/04/20 23:02 Dose: 50 mcg Documented by: LANEY Fentanyl (Fentanyl 100 Mcg/2 Ml Inj) 50 mcg IV NOW ONE Stop: 09/04/20 23:16 Last Admin: 09/04/20 23:15 Dose: 50 mcg Documented by: LANEY Lidocaine/Sodium Bicarbonate (Lido 1%/Sod Bicarb 8.4% (10ml) 10 Ml Syringe) 10 ml INJ NOW ONE Stop: 09/05/20 02:26 Last Admin: 09/05/20 02:33 Dose: 10 ml Documented by: TIFFANY Vital Signs Vital signs: Vital Signs - 8 hr 09/04/20 22:43 09/04/20 22:52 09/04/20 23:23 Pulse Rate 75 64 78 Respiratory Rate Blood Pressure 136/66 Pulse Oximetry 98 98 96 09/04/20 23:26 09/04/20 23:30 09/05/20 00:00 Pulse Rate 80 83 79 Respiratory Rate Blood Pressure 160/88 H 158/74 H Pulse Oximetry 98 97 96 09/05/20 01:50 09/05/20 02:00 Pulse Rate 76 72 Respiratory Rate 16 Blood Pressure 155/78 H Pulse Oximetry 97 96 MDM - Fall Lab Data Labs: Point of Care Testing Glucose POC [address] scan - head: Radiologist's Impression: No acute process CT - cervical spine: Radiologist's Impression: Congenital spinal stenosis with degenerative spondylolysis, no acute fracture or dislocation CT scan - chest: Radiologist's Impression: No acute injury of chest, abdomen or pelvis. Discharge Plan Departure Patient Disposition: Home Clinical Impression: Acute anterior epistaxis Fall Qualifiers: Encounter type: initial encounter Qualified Code(s): W19.XXXA - Unspecified fall, initial encounter Laceration of right thumb Qualifiers: Encounter type: initial encounter Damage to nail status: without damage Foreign body presence: without foreign body Qualified Code(s): S61.011A - Laceration without foreign body of right thumb without damage to nail, initial encounter Instructions: DI for Trauma Activity Restrictions/Additional Instructions: *You have been diagnosed with [ground level fall with minor injuries including laceration to right thumb] *What to do: *Please continue to take your regular medications as directed. [ ] New medication prescriptions sent to your pharmacy: [ ] [ ] New medication written as a paper prescription [x ] No new medications given Please keep the wound clean and dry to the best of your ability. Please monitor for signs of infection such as redness to the skin or increasing pain. Have the sutures removed by your doctor in about 7 days. If you are unable to get into your doctor, we would be happy to remove the sutures in that same timeframe. *If you do not have a primary care provider please contact the [facility] Resource line at [phone]. They will ask some questions about your medical history and help get you set up with a doctor in the community. *Return to Emergency Department if you should have any new, worsening or concerning symptoms, such as [fever greater than 101 F, shaking chills, worsening pain, persistent vomiting or other bothersome symptoms] Prescriptions: No Action sennosides [senna] 8.6 mg Tablet 8.6 mg PO BID RF: 0 albuterol sulfate 2.5 mg /3 mL (0.083 %) Solution For Nebulization 2.5 mg INHALATION Q4-6H PRN (Reason: Dyspnea) RF: 0 donepezil 10 mg Tablet 10 mg PO DAILY RF: 0 lisinopril 20 mg Tablet 20 mg PO DAILY RF: 0 melatonin 3 mg Tablet 3 mg PO BEDTIME PRN (Reason: Insomnia) RF: 0 ipratropium bromide 17 mcg/actuation Hfa Aerosol Inhaler 1 puff INHALATION QID RF: 0 polyethylene glycol 3350 8.5 gram Powder In Packet 8.5 g PO DAILY RF: 0 Cavilon Durable Barrier 1.3 % Cream See Rx Instructions .ROUTE .COMPLEX PRN (Reason: Skin Irritation) RF: 0 Referrals: Indira Hall MD [Primary Care Provider] -
[2020-09-04 22:43] VITALS: PULSE 75; O2SAT 98
[2020-09-04 22:52] VITALS: BP 136/66; PULSE 64; O2SAT 98
--- NOTE | 2020-09-04 22:53 | DI.CT.S_ITS ---
PROCEDURE: CT CHEST ABD PEL WO CON INDICATIONS: Trauma TECHNIQUE: After the administration of oral contrast, 5 mm thick sections acquired from the lung apices to the symphysis pubis. 5 mm thick coronal and sagittal reformats acquired, with additional 7 mm coronal MIP reformats through the lungs. For radiation dose reduction, the following was used: automated exposure control, adjustment of mA and/or kV according to patient size. COMPARISON: [facility], CR, XR HUMERUS RT 2V, 09/05/2020, 2:32. [facility], CR, XR PELVIS WITH LATERAL HIP LEFT, 11/08/2019, 12:09. [facility], CT, CT PEL WO CON, 10/16/2019, 14:54. FINDINGS: Image quality: Excellent. CHEST: Lungs and pleura: No acute pulmonary opacities. No pleural effusions or pneumothorax. Central and peripheral airways are patent are normal in caliber. There are multiple lung nodules. Inspector And Mender nodules are listed as the following: Nodule 1: 4 mm; right upper lobe; series 11, image 110; solid. Nodule 2: 4 mm; right upper lobe; series 11 image 139; solid. Nodule 3: 6 mm; right apex; series 11, image 85; ground-glass. Nodule 4: 4 x 10 mm; left upper lobe; series 11 image 98; ground-glass. Mediastinum: Heart size is normal. No pericardial effusion. No mediastinal adenopathy by CT size criteria. Thoracic aorta and central pulmonary arteries are normal in size. Esophagus is normal in caliber. No hiatal hernia. Chest wall: No axillary or supraclavicular adenopathy by size criteria. There is a 1 cm densely calcified nodule in the left thyroid. ABDOMEN: Solid organs: Liver is normal in size. Gallbladder is normal. Pancreas is normal in contours. Spleen is normal in size. No adrenal nodules. Both kidneys are normal in size, without hydronephrosis. There are 3 nonobstructive stones in right kidney measuring 2-4 mm. Peritoneum and bowel: Small and large bowel loops are normal in caliber and wall thickness. No free fluid or air. Nodes and vessels: No retroperitoneal or mesenteric adenopathy by size criteria. Aorta and inferior vena cava are normal in size. Miscellaneous: No ventral hernias. PELVIS: Genitourinary: Bladder wall thickness is normal. Miscellaneous: No inguinal hernias or adenopathy. Bones: Insufficiency fracture of the left sacral ala. Scoliosis and degenerative changes in lumbar spine. No vertebral body compression fractures. Old healed right humeral shaft fracture, left pelvic remote fractures and bilateral femoral neck fractures are noted. IMPRESSION: 1. No acute traumatic injuries in thorax, abdomen or pelvis. 2. There is a insufficiency fracture of the left sacral ala. 3. Multiple pulmonary nodules bilaterally. A follow-up CT is suggested in 3 months. Please see enclosed follow-up recommendation. 4. Nonobstructive right renal calculi. 5. A 1 cm calcified thyroid nodule in the left thyroid lobe. Thyroid ultrasound is suggested for follow-up. No significant discrepancy with the cabin outfitter radiology preliminary report. Fleischner Society criteria for SOLID lung nodule followup. Nodule size (mm)Low-risk patientHigh-risk patient?4No follow-up neededFollow-up at 12 mo; if no change, no further follow-up>[id number] CT at 12 mo; if no change, no further follow-up needed.Initial follow-up CT at 6-12 mo, then 18-24 mo if no change. >6-8Initial follow-up CT at 6-12 mo, then 18-24 mo if no change. Initial follow-up CT at 3-6 mo, then 9-12 mo and 24 mo if no change. >8Follow-up CT at 3, 9, 24 mo. Or PET and/or biopsy.Same as for low-risk pts. Fleischner Society criteria for SUB-SOLID lung nodule followup. Solitary pure ground-glass nodules5 mm or lessNo followup needed. >5 mm3 mo follow-up CT to confirm persistence. Then annual CT for 3 years. Part-solid nodules3 mo follow-up CT to confirm persistence. If persistent with solid component <5 mm, annual CT for at least 3 years. If solid component is 5 mm or more, biopsy or surgical resection. Consider PET-CT for lesions > 10 mm. Multiple sub-solid nodulesPure ground glass nodules [address] at 2 and 4 years. Pure ground glass nodules >5 mm without dominant lesion. [address] to confirm persistence, then annual followup CT for at least 3 years. Dominant nodule(s) with part-solid or solid component. [address] to confirm persistence. If persistent, consider biopsy or surgical resection, christian if lesions have >5 mm solid component. Dictated by: Myrna Sanchez M.D. on 09/05/2020 at 9:39 Approved by: Myrna Sanchez M.D. on 09/05/2020 at 9:50
--- NOTE | 2020-09-04 22:53 | DI.CT.S_ITS ---
PROCEDURE: CT HEAD/BRAIN WO CON INDICATIONS: Trauma TECHNIQUE: Noncontrast 4.5 mm thick angled axial sections acquired from the foramen magnum to the vertex, with coronal and sagittal reformats. For radiation dose reduction, the following was used: automated exposure control, adjustment of mA and/or kV according to patient size. COMPARISON: None. FINDINGS: Image quality: Degraded by patient motion artifact. CSF spaces: Basal cisterns are patent. No extra-axial fluid collections. The ventricles are symmetric in size and shape. Brain: No intracranial bleeds or masses. There is moderate cerebral volume loss for age, with resultant ventricular and sulcal prominence. There are severe periventricular and deep white matter chronic small vessel ischemic changes. There is intracranial internal carotid artery atherosclerosis. Skull and face: Calvarium and visualized facial bones appear intact, without suspicious lesions. Small left frontal scalp contusion. Sinuses: Visualized sinuses and mastoids are clear. IMPRESSION: No acute intracranial disease process within limitations of the study. Dictated by: Tonya Fernandez MD, PhD on 09/05/2020 at 7:37 Approved by: Tonya Fernandez MD, PhD on 09/05/2020 at 7:39
--- NOTE | 2020-09-04 22:53 | DI.CT.S_ITS ---
PROCEDURE: CT CERVICAL SPINE WO CON INDICATIONS: Trauma TECHNIQUE: Noncontrast 3 mm thick sections acquired from the skull base to the T4 level. Sagittal and coronal reformats were then constructed. For radiation dose reduction, the following was used: automated exposure control, adjustment of mA and/or kV according to patient size. COMPARISON: None. FINDINGS: Image quality: Excellent. Bones: No fractures or dislocations. Visualized superior ribs are intact. Spine degenerative disc disease and facet arthropathy. Congenital spinal canal narrowing noted, if there is clinical concern for significant central canal stenosis and MRI of the cervical spine should be considered for further evaluation.. Soft tissues: Prevertebral soft tissues are normal in thickness. No paravertebral hematomas. No apical pneumothoraces. 9 millimeter calcified left thyroid nodule. 7 millimeter and 5 millimeter hypoattenuating right thyroid nodules IMPRESSION: No fracture. No acute osseous lesion. If symptoms and/or clinical suspicion for pathology persists, evaluation with MRI should be considered for further assessment. Dictated by: Tonya Fernandez MD, PhD on 09/05/2020 at 8:15 Approved by: Tonya Fernandez MD, PhD on 09/05/2020 at 8:19
[2020-09-04] MEDS: SODIUM CHLORIDE 0.9% 1,000 ML 150 ML IV (23:01)
[2020-09-04] MEDS: fentaNYL 100 MCG/2 ML INJ 50 MCG IV ×2 (23:02→23:15)
[2020-09-04 23:23] VITALS: PULSE 78; O2SAT 96
[2020-09-04 23:26] VITALS: BP 160/88; PULSE 80; O2SAT 98
[2020-09-04 23:30] VITALS: PULSE 83; O2SAT 97
[2020-09-05] VITALS: BP 158/74; PULSE 79; O2SAT 96
--- NOTE | 2020-09-05 | PC.NURSE ---
Multiple attempts to get blood drawn by lab, with assist from RN. Pt kept moving arms, yelling and trying to hit staff. Pain meds were given to increase pt comfort and pt still would not cooperate with lab draw. notified.
[2020-09-05 01:50] VITALS: BP 155/78; PULSE 75; PULSE 76; RESP 16; O2SAT 97
[2020-09-05 02:00] VITALS: PULSE 72; O2SAT 96
--- NOTE | 2020-09-05 02:31 | DI.RAD.S_ITS ---
PROCEDURE: XR HUMERUS RT 2V INDICATIONS: pain, swelling, ecchymosis TECHNIQUE: To views of the humerus were acquired. COMPARISON: None. FINDINGS: Bones: Chronic displaced right humeral midshaft fracture. Fracture is healed in marked deformity and possibly nonunion. Soft tissues: No suspicious soft tissue calcifications. IMPRESSION: Chronic displaced right humerus fracture. Dictated by: Tonya Fernandez MD, PhD on 09/05/2020 at 8:37 Approved by: Tonya Fernandez MD, PhD on 09/05/2020 at 8:38
[2020-09-05] MEDS: LIDO 1%/SOD BICARB 8.4% (10ML) 10 ML SYRINGE INJ (02:33)
[2020-09-05] MEDS: BACITRACIN OINT 0.9 GM PCKT 1 APPLIC TOP (04:47)
--- NOTE | 2020-09-05 05:11 | PC.NURSE ---
At 0440 attempted to contact [facility] r/t pt discharge, spoke to a staff member, who would be contacting the head nurse about pt return to the facility, that nurse will be asked to contact this ED.
[2020-09-05 07:30] VITALS: BP 155/74; PULSE 67; RESP 18; O2SAT 96
== END 2020-09-05 07:45 | disposition home or self-care (01) ==
PROVIDERS: Emergency Provider Emergency Medicine; PCP Internal Medicine
DX: S61.011A Laceration without foreign body of right thumb without damage to nail, initial encounter (principal); R04.0 Epistaxis; M54.2 Cervicalgia; M54.9 Dorsalgia, unspecified; R07.89 Other chest pain; M79.602 Pain in left arm; M79.601 Pain in right arm; W19.XXXA Unspecified fall, initial encounter
CPT/HCPCS: 12001; 70450; 71260; 72125; 73060; 74177; 96361; 96374; 99285; J3010; Q9967